=== PATIENT | female | born 1945 | race Caucasian/White ===

== ENCOUNTER 2016-06-24 12:54 | Outpatient (CLI) | payer MEDICARE, OTHER | END 2016-06-24 12:55 | disposition home or self-care (01) | DX: Z12.31 Encounter for screening mammogram for malignant neoplasm of breast (principal) ==

== ENCOUNTER 2017-07-04 14:51 | Outpatient (CLI) | payer MEDICARE, OTHER ==
--- NOTE | 2017-07-05 13:28 | Mammography Report ---
DIGITAL SCREENING MAMMOGRAM: 07/04/2017 CLINICAL INDICATION: A 72-year-old for screening. COMPARISON: 06/2016, 03/2015, 07/2012, 09/2010, 09/2009. TECHNIQUE: Routine CC and MLO projections were obtained of the breasts. FINDINGS: Parenchymal tissue within both breasts is heterogeneously dense, which may lower the sensitivity of mammography; however, there are no dominant masses, suspicious microcalcifications, or secondary signs of malignancy. In comparison to the previous studies, there are no significant changes. IMPRESSION: NO MAMMOGRAPHIC EVIDENCE OF MALIGNANCY. NO SIGNIFICANT INTERVAL CHANGES. RECOMMENDATION: Screening mammography is recommended annually. BIRADS CATEGORY 1 - NEGATIVE. STANDARD QUALIFYING STATEMENTS: 1. This examination was reviewed with the aid of Computed-Aided Detection (CAD). 2. A negative or benign imaging report should not delay biopsy if clinically suspicious findings are present. Consider surgical consultation if warranted. More than 5% of cancers are not identified by imaging. 3. Dense breasts may obscure an underlying neoplasm. TD: 07/05/2017 13:16
== END 2017-07-04 14:52 | disposition home or self-care (01) ==
LOC: DI 14:51
PROVIDERS: ATTEND Physician Assistant
DX: Z12.31 Encounter for screening mammogram for malignant neoplasm of breast (principal)
CPT/HCPCS: 77067

== ENCOUNTER 2017-12-12 14:30 | Outpatient (CLI) | payer MEDICARE, OTHER | END 2017-12-12 14:31 | disposition home or self-care (01) | LOC: LAB.R 14:30 | PROVIDERS: ATTEND Obstetrics & Gynecology | DX: R82.998 Other abnormal findings in urine (principal); N30.91 Cystitis, unspecified with hematuria | CPT/HCPCS: 87086; 87181 ==

== ENCOUNTER 2018-01-29 15:58 | Outpatient (CLI) | payer MEDICARE, OTHER ==
--- NOTE | 2018-01-30 11:13 | XRAY Report ---
Reason: C-spine pain Procedure Date: 01/29/2018 Accession Number: [id number] / [id number] Procedure: XR - Cervical Spine Complete CPT Code: FULL RESULT: EXAM: CERVICAL SPINE RADIOGRAPHY EXAM DATE: 01/29/2018 04:41 PM. CLINICAL HISTORY: C-spine pain. COMPARISONS: 07/27/2006. TECHNIQUE: 5 views. FINDINGS: Alignment: Lower cervical levoscoliosis. Reversed cervical lordosis. Minimal retrolisthesis of C5 with respect to C6. Bones: The cervical vertebral bodies and posterior elements are well-seen from the skull base through C7-T1. No fractures or bone lesions. Disks: Stable advanced C5-C6 disk space narrowing. Progressed disk space narrowing C4-C5 greater than C3-C4. Facets: Scattered degenerative disease. Neural Foramina: Mild narrowing C5-C6 neural foramina greater on the right. The neural foramina otherwise have bony patency bilaterally. Soft Tissues: No prevertebral soft tissue swelling. IMPRESSION: Degenerative change cervical spine significantly progressed since 07/27/2006 most severe C4-C5 and C5-C6. RADIA
--- NOTE | 2018-01-30 11:20 | XRAY Report ---
Reason: THORACOGENIC SCOLIOSIS,THORALUMBAR,RADICULOPATHY,L Procedure Date: 01/29/2018 Accession Number: [id number] / [id number] Procedure: XR - Lumbar Spine 2 View CPT Code: FULL RESULT: EXAM: LUMBOSACRAL SPINE RADIOGRAPHY EXAM DATE: 01/29/2018 04:41 PM. CLINICAL HISTORY: SCOLIOSIS,THORALUMBAR,RADICULOPATHY. Lumbar back pain COMPARISONS: MRI lumbar spine 08/24/2012 TECHNIQUE: 3 views. FINDINGS: Alignment: 42 degrees lumbar levoscoliosis the apex at L1. Minimal retrolisthesis L1 with respect to L2 and anterior listhesis of L3 with respect to L4. Bones: Five [id number] lumbar vertebral bodies are present. No fractures or bone lesions. Disks: Advanced degenerative disk space narrowing L3-L4 and L4-L5 greater than L5-S1 and L2-L3. Facets: Multilevel degenerative changes. Sacroiliac Joints: Minor degenerative change. IMPRESSION: Lumbar spine levoscoliosis and degenerative change, progressed compared with 08/24/2012. No superimposed acute findings.
--- NOTE | 2018-01-30 11:24 | XRAY Report ---
Reason: thoracogenic scoliosis Procedure Date: 01/29/2018 Accession Number: [id number] / [id number] Procedure: XR - Thoracic Spine 2 View CPT Code: FULL RESULT: EXAM: THORACIC SPINE RADIOGRAPHY EXAM DATE: 01/29/2018 04:41 PM. CLINICAL HISTORY: Thoracogenic scoliosis. COMPARISON: 12/18/2007 chest x-ray TECHNIQUE: 2 views. FINDINGS: Alignment: Approximate 38 degree thoracic dextroscoliosis the apex at T7 slightly increased since 2007. Bones: No fractures or bone lesions. Disks: Scattered degenerative changes. Soft Tissues: Bandlike scarring peripheral right midlung IMPRESSION: Degenerative change and dextro scoliosis thoracic spine mildly progressed since 2007. RADIA
== END 2018-01-29 15:59 | disposition home or self-care (01) ==
LOC: DI 15:58
PROVIDERS: ATTEND Family Medicine
DX: M47.9 Spondylosis, unspecified (principal); M50.31 Other cervical disc degeneration, high cervical region; M43.12 Spondylolisthesis, cervical region; M51.36 Other intervertebral disc degeneration, lumbar region; M41.9 Scoliosis, unspecified; M51.37 Other intervertebral disc degeneration, lumbosacral region; M51.34 Other intervertebral disc degeneration, thoracic region
CPT/HCPCS: 72050; 72070; 72100

== ENCOUNTER 2018-04-20 08:00 | Outpatient (CLI) | payer MEDICARE, OTHER | END 2018-04-20 23:59 | disposition home or self-care (01) | LOC: LAB.R 08:00 | PROVIDERS: ATTEND Obstetrics & Gynecology | DX: R30.0 Dysuria (principal) | CPT/HCPCS: 87086 ==

== ENCOUNTER 2018-06-02 15:27 | Outpatient (CLI) | payer MEDICARE, OTHER ==
--- NOTE | 2018-06-04 11:57 | MRI Report ---
Reason: RADICULOPATHY, LUMBOSACRAL REGION Procedure Date: 06/02/2018 Accession Number: [id number] / [id number] Procedure: MRI - Lumbar Spine W/O CPT Code: FULL RESULT: MRI LUMBAR SPINE WITHOUT CONTRAST INDICATION: 73-year-old female with left-sided radiculopathy. Please assess. TECHNIQUE: 1. Sagittal STIR, T1 and T2. 2. Axial T1 and T2. COMPARISON: 08/24/2012 FINDINGS: There is a significant levoconvex scoliosis with apex at the L2-L3 disk level. With the patient lying supine, on the coronal localizer the Kolb angle appears to measure about 33 degrees. There is significant left lateral listhesis of L3 on L4 with minor left lateral listhesis of L4 on L5. In the sagittal plane there is a grade I anterolisthesis of L3 on L4, measuring about 3 mm, unchanged. There is minor retrolisthesis of L1 on L2 that appears to be new. Degenerative changes are again demonstrated in the disks at all levels. There is multilevel degenerative disk space narrowing that appears to be moderate to severe at L3-L4 on the right and at L4-L5 and L5-S1 on the left, essentially unchanged. The L1-L2 and L2-L3 disk space heights are relatively preserved. Type II reactive marrow changes are identified in the vertebral endplates at L3-L4 and L4-L5. A few intraosseous hemangiomata are demonstrated. The marrow signal intensity is otherwise unremarkable. Axial images: T12-L1: Tiny, shallow protrusion, paracentrally on the right with minimal mass effect on the antral aspect of the thecal sac. No spinal stenosis. The neural foramina appear widely patent. L1-L2: Small, right intra/extraforaminal extrusion. Previously demonstrated central extrusion has resolved. There is mild degenerative facet arthrosis without significant bony hypertrophy. No central spinal stenosis or significant subarticular zone narrowing. Mild right-sided foraminal stenosis. L2-L3: Small central/right paracentral protrusion with minimal mass effect on the ventral aspect of thecal sac, unchanged. Degenerative facet arthrosis without significant bony hypertrophy. Moderate redundancy of the ligamenta flava with mass effect on the dorsal aspect of the thecal sac, unchanged. No significant central or subarticular zone spinal stenosis. Small right intra/extraforaminal extrusion. Mild right foraminal stenosis. L3-L4: Anterolisthesis with associated uncovering of the disk. No focal posterior protrusion or extrusion has developed. Again demonstrated is a small extrusion, posterolaterally on the left with intraforaminal extension, unchanged. Degenerative facet arthrosis with at least mild bony hypertrophy, stable. Moderate redundancy of the ligamenta flava, unchanged. The subarticular zones are narrowed, left greater than right. However, no impingement of either traversing L4 nerve root is demonstrated. No significant central zone spinal stenosis. Mild left and mild to moderate right foraminal stenoses, unchanged. Again noted is a perineural cyst in the right neural foramen, similar to prior study. L4-L5: Central/left paracentral extrusion, projecting posteriorly into the spinal canal for about 5.5 mm, essentially unchanged. Broad-based left intra/extraforaminal extrusion, stable. Degenerative facet arthrosis with mild right and mild to moderate left facet hypertrophy, stable. Mild to moderate redundancy of the ligamenta flava. Again demonstrated is severe left subarticular zone stenosis, essentially unchanged. No significant appearing central zone or right subarticular zone stenosis has developed. There is mild left foraminal stenosis, unchanged. L5-S1: Small central/right paracentral extrusion projecting posteriorly into the spinal canal for about 5.5 mm, unchanged. There is contact with the ventral aspect of the dural sac and with the ventral aspect of the dural sleeve for traversing right S1 nerve root. No mass effect on the S1 nerve root is demonstrated. No central zone or left subarticular zone stenosis has developed. There are small intra/extraforaminal protrusions or extrusions bilaterally, larger on the left than the right, unchanged. Degenerative facet arthrosis with mild to moderate right and moderate left facet hypertrophy, similar to prior study. There is mild left foraminal stenosis. Moderate to severe degree of fatty atrophy is identified in the posterior paraspinal musculature in the lower lumbar/upper sacral region, similar to previous examination. IMPRESSION: 1. Levoconvex lumbar scoliosis with multilevel degenerative disk and facet change showing minor interval evolution when compared to previous study 08/24/2012. 2. Again demonstrated is multilevel central, subarticular and foraminal zone narrowing. The most significant stenoses are as follows: a. At L3-L4 there are bilateral subarticular zone stenoses, unchanged. No mel impingement of either traversing L4 nerve root is demonstrated. b. At L4-L5 again demonstrated is severe left subarticular zone (lateral recess) stenosis with almost certain compromise of traversing left L5 nerve root. Recommend clinical correlation for left L5 radiculopathy. c. At L5-S1 again demonstrated is a small central/right paracentral extrusion. It contacts the ventral surface of the dural sleeve for traversing right S1 nerve root, unchanged. No mass effect on the nerve is demonstrated.
== END 2018-06-02 15:28 | disposition home or self-care (01) ==
LOC: DI 15:27
PROVIDERS: ATTEND Specialist
DX: M51.17 Intervertebral disc disorders with radiculopathy, lumbosacral region (principal); M48.07 Spinal stenosis, lumbosacral region; M51.16 Intervertebral disc disorders with radiculopathy, lumbar region; M41.86 Other forms of scoliosis, lumbar region
CPT/HCPCS: 72148

== ENCOUNTER 2018-08-31 15:46 | Outpatient (CLI) | payer MEDICARE, OTHER ==
--- NOTE | 2018-09-03 08:39 | Mammography Report ---
Reason: SCREENING MAMMO Procedure Date: 08/31/2018 Accession Number: [id number] / [id number] Procedure: ANTONIO - Screening Mammo w/Itz CPT Code: FULL RESULT: EXAM: Screening Mammo w/Itz DATE: 08/31/2018 4:20 PM CLINICAL HISTORY: Screening encounter. No reported risk factors. TECHNIQUE: (B) - Bilateral CC and MLO views were obtained. COMPARISON: 07/04/2017 through 07/16/2012. PARENCHYMAL PATTERN: (D) - The breast(s) demonstrate(s) heterogeneously dense fibroglandular parenchyma. FINDINGS: There are no suspicious masses, calcifications, or areas of distortion. IMPRESSION: Negative examination. BI-RADS category 1. RECOMMENDATION: (ANNUAL) - Recommend routine annual screening mammography. BI-RADS CATEGORY: (1) - Negative. STANDARD QUALIFYING STATEMENTS: 1. This examination was not reviewed with the aid of Computer-Aided Detection (CAD). 2. A negative or benign imaging report should not preclude biopsy if clinically suspicious findings are present. 3. Dense breasts may obscure an underlying neoplasm. 4. This examination was reviewed with the aid of 3D breast imaging (tomosynthesis).
== END 2018-08-31 15:47 | disposition home or self-care (01) ==
LOC: DI 15:46
PROVIDERS: ATTEND Internal Medicine
DX: Z12.31 Encounter for screening mammogram for malignant neoplasm of breast (principal)
CPT/HCPCS: 77063; 77067

== ENCOUNTER 2018-11-10 17:32 | Inpatient (IN) | payer MEDICARE, OTHER ==
[2018-11-10] MEDS ORDERED: SODIUM CHLORIDE 0.9% 1,000 ML IV ONE ×3 (17:50→19:07)
[2018-11-10 18:37] LABS: BASOPHILS # (AUTO) 0.1 10^3/uL (0.0-0.1); BASOPHILS % (AUTO) 0.5 %; EOSINOPHILS # (AUTO) 0.1 10^3/uL (0.0-0.7); EOSINOPHILS % (AUTO) 0.5 %; HGB - HEMOGLOBIN 9.4 g/dL (12.0-16.0); LYMPHOCYTES # (AUTO) 1.6 10^3/uL (1.5-3.5); LYMPHOCYTES % (AUTO) 8.6 %; MEAN CORPUSCULAR HEMOGLOBIN 29.7 pg (27.0-31.0); MEAN CORPUSCULAR HGB CONC 30.9 g/dL (32.0-36.0); MEAN CORPUSCULAR VOLUME 96.2 fL (81.0-99.0); MONOCYTES # (AUTO) 1.4 10^3/uL (0.0-1.0); MONOCYTES % (AUTO) 7.7 %; NEUTROPHILS # (AUTO) 14.8 10^3/uL (1.5-6.6); NEUTROPHILS % (AUTO) 81.8 %; PLT - PLATELET COUNT 693 10^3/uL (130-450); RED BLOOD COUNT 3.16 10^6/uL (4.20-5.40); RED CELL DISTRIBUTION WIDTH 13.6 % (12.0-15.0); WHITE BLOOD COUNT 18.1 x10^3/uL (4.8-10.8)
[2018-11-10 18:50] LABS: ALBUMIN 2.6 g/dL (3.2-5.5); ALBUMIN/GLOBULIN RATIO 0.6 (1.0-2.2); BILIRUBIN,TOTAL 0.6 mg/dL (0.2-1.0); CALCIUM 8.8 mg/dL (8.5-10.3); CREATININE 1.1 mg/dL (0.4-1.0); TOTAL PROTEIN 6.8 g/dL (6.7-8.2)
[2018-11-10] MEDS ORDERED: MORPHINE 2 MG/ML CARPUJECT IVP STA (19:07)
[2018-11-10] MEDS ORDERED: DEXAMETHASONE 10 MG/ML VIAL IVP STA (19:11)
[2018-11-10] MEDS ORDERED: KETOROLAC 30 MG/ML VIAL IVP STA (19:12)
--- NOTE | 2018-11-10 19:13 | ED Physician Documentation ---
History of Present Illness - Stated complaint Stated Complaint: BODY ACHES/DIARRHEA - Chief complaint Chief Complaint: General - History obtained from History obtained from: Patient, Family - History of Present Illness Timing: Other (1 month) Pain level max: 6 Pain level now: 5 - Additonal information Additional information: 73-year-old female presents to the emergency department with sores on her mouth and a sore throat for the past month. Saw her doctor who started her on viscous lidocaine. She states she has had intermittent fevers. Cough productive of green and yellow sputum. She also has developed diarrhea. Does have a history of colitis in the past. Has occasional crampy abdominal pain. Worse with swallowing. Nothing makes it better. Taking Tylenol at home for her hips. Review of Systems Ten Systems: 10 systems reviewed and negative Constitutional: reports: Fever. denies: Chills Ears: denies: Ear pain Nose: reports: Rhinorrhea / runny nose, Congestion Throat: reports: Sore throat Cardiac: denies: Chest pain / pressure, Palpitations Respiratory: reports: Cough. 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 - Present Medications Home Medications: Ambulatory Orders Medication Instructions Recorded Confirmed Aspirin Chewable [[place] 81 mg PO DAILY 10/16/12 11/06/14 Aspirin] Bisacodyl [Dulcolax] 10 mg PO DAILY 10/16/12 11/06/14 Clonazepam 0.5 mg PO TID 10/16/12 11/06/14 Estrogens,Esterified [Menest] 0.3 mg PO DAILY 10/16/12 11/06/14 HYDROcod/ACETAM 5/325 [Vicodin 1 - 2 ea PO Q6H PRN #15 tablet 10/16/12 11/06/14 5/325] Labetalol HCl 100 mg PO DAILY 10/16/12 11/06/14 Levothyroxine [Synthroid] 37.5 mcg PO QDAC 10/16/12 11/06/14 Nifedipine [Nifedical Xl] 30 mg PO DAILY 10/16/12 11/06/14 Rabeprazole Sodium [Aciphex] 20 mg PO DAILY 10/16/12 11/06/14 hydroCHLOROthiazide [Hydrodiuril] 25 mg PO DAILY 10/16/12 11/06/14 Ciprofloxacin HCl [Cipro] 500 mg PO BID #10 tablet 11/06/14 Dicyclomine HCl [Bentyl] 20 mg PO QID PRN #20 tablet 11/06/14 Estradiol [Vagifem] 1 unit [id number] DAILY 11/06/14 11/06/14 Ondansetron HCl [Zofran] 4 mg PO Q6H PRN #10 tablet 11/06/14 clonazePAM [Clonazepam] 0.5 mg PO TID 11/06/14 11/06/14 traMADol [Ultram] 100 mg PO QID 11/06/14 11/06/14 - Allergies Allergies/Adverse Reactions: Allergies Allergy/AdvReac Type Severity Reaction Status Date / Time iodine Allergy lightheaded Verified 11/10/18 17:46 Sulfa (Sulfonamide Allergy Nausea Verified 11/10/18 17:46 Antibiotics) trifluoperazine HCl * Allergy unknown Verified 11/10/18 17:46 [From Stelazine] - Social History Does the pt smoke?: No Smoking Status: Never smoker Does the pt drink ETOH?: No Does the pt have substance abuse?: No PD ED PE NORMAL - Vitals Vital signs reviewed: Yes - General General: Alert and oriented X 3, No acute distress, Other (Thin frail female) - HEENT HEENT: PERRL, Ears normal, Moist mucous membranes, Other (Posterior pharyngeal erythema with exudates. Uvula midline. Normal phonation. No trismus.) - Neck Neck: Supple, no meningeal sign, Other (Shotty anterior lymphadenopathy) - Cardiac Cardiac: RRR, Strong equal pulses - Respiratory Respiratory: No respiratory distress, Clear bilaterally - Abdomen Abdomen: Soft, Non distended, Other (Mild diffuse tenderness to palpation without peritoneal signs) - Back Back: No CVA TTP, No spinal TTP - Derm Derm: Warm and dry - Extremities Extremities: No edema, No calf tenderness / cord - Neuro Neuro: Alert and oriented X 3 - Psych Psych: Normal mood, Normal affect Results - Vitals Vitals: Vital Signs - 24 hr 11/10/18 11/10/18 11/10/18 17:41 18:30 19:19 Temperature 37.2 C Heart Rate 114 H 108 H 116 H Respiratory 18 18 20 Rate Blood Pressure 106/71 135/88 H 133/109 H O2 Saturation 93 100 100 11/10/18 21:41 Temperature 37.4 C Heart Rate 114 H Respiratory 18 Rate Blood Pressure 137/71 H O2 Saturation 97 Oxygen O2 Source Room air - Labs Labs: Laboratory Tests 11/10/18 11/10/18 11/10/18 18:20 18:30 19:13 WBC 18.1 H RBC 3.16 L Hgb 9.4 L Hct 30.4 L MCV 96.2 MCH 29.7 MCHC 30.9 L RDW 13.6 Plt Count 693 H MPV 9.0 Neut # (Auto) 14.8 H Lymph # (Auto) 1.6 Benton # (Auto) 1.4 H Eos # (Auto) 0.1 Baso # (Auto) 0.1 Absolute Nucleated RBC 0.00 Nucleated RBC % 0.0 Sodium 140 Potassium 3.7 Chloride 100 L Carbon Dioxide 23 Anion Gap 17.0 H BUN 17 Creatinine 1.1 H Estimated GFR (MDRD) 48 L Glucose 116 H Lactic Acid Calcium 8.8 Total Bilirubin 0.6 AST 32 ALT 18 Alkaline Phosphatase 88 Total Protein 6.8 Albumin 2.6 L Globulin 4.2 Albumin/Globulin Ratio 0.6 L Lipase 29 Urine Color Urine Clarity Urine pH Ur Specific Garfield Urine Protein Urine Glucose (UA) Urine Ketones Urine Occult Blood Urine Nitrite Urine Bilirubin Urine Urobilinogen Ur Leukocyte Esterase Urine RBC Urine WBC Ur Squamous Epith Cells Urine Bacteria Ur Microscopic Review Urine Culture Comments Group A Strep Rapid Negative 11/10/18 11/10/18 20:20 22:20 WBC RBC Hgb Hct MCV MCH MCHC RDW Plt Count MPV Neut # (Auto) Lymph # (Auto) Benton # (Auto) Eos # (Auto) Baso # (Auto) Absolute Nucleated RBC Nucleated RBC % Sodium Potassium Chloride Carbon Dioxide Anion Gap BUN Creatinine Estimated GFR (MDRD) Glucose Lactic Acid 0.9 Calcium Total Bilirubin AST ALT Alkaline Phosphatase Total Protein Albumin Globulin Albumin/Globulin Ratio Lipase Urine Color YELLOW Urine Clarity CLEAR Urine pH 6.0 Ur Specific Garfield 1.015 Urine Protein NEGATIVE Urine Glucose (UA) NEGATIVE Urine Ketones 15 H Urine Occult Blood NEGATIVE Urine Nitrite POSITIVE H Urine Bilirubin NEGATIVE Urine Urobilinogen 0.2 (NORMAL) Ur Leukocyte Esterase NEGATIVE Urine RBC None Seen Urine WBC 11-25 H Ur Squamous Epith Cells FEW Squamous Urine Bacteria Many H Ur Microscopic Review INDICATED Urine Culture Comments INDICATED Group A Strep Rapid - Rads (name of study) cxr Radiology: Prelim report reviewed, EMP read contemporaneously, See rad report (Right upper lobe infiltrate with consolidation. There may be extensions of the superior segment of the right lower lobe ) CT chest Radiology: Prelim report reviewed, EMP read contemporaneously, See rad report (Multilobar consolidation involving the right lung. Irregular locules of gas within this consolidation, which likely represents developing necrosis. No discrete rim-enhancing fluid collection visualized to suggest abscess. Recommend follow-up chest radiographs following treatment to ensure resolution. Mildly enlarged pretracheal mediastinal lymph node, which may be reactive. ) CT abd/pelvis Radiology: Prelim report reviewed, EMP read contemporaneously, See rad report (. Diverticulosis without diverticulitis or other acute inflammatory process. 2. Evidence of pelvic floor dysfunction. ) PD MEDICAL DECISION MAKING - ED course Complexity details: reviewed results, re-evaluated patient, considered differential, d/w patient, d/w family ED course: 73-year-old female presents to the emergency department with illness over the past month. She appears to have a right upper lobe pneumonia with possible areas of necrosis. She has significant dehydration and a 10 pound weight loss. Given IV fluids. Has a significant leukocytosis of 18,000. She also appears to have a urinary tract infection. She is ill-appearing. Given IV Levaquin. Blood cultures drawn. Will admit for further care. PSI score of III. Discussed the case with Dr. Adams, hospitalist who accepts. This document was made in part using voice recognition software. While efforts are made to proofread this document, sound alike and grammatical errors may occur. Departure - Departure Disposition: 66 [facility] DC/Xfer Clinical Impression: Tachycardia, Dehydration Pneumonia Qualifiers: Pneumonia type: due to unspecified organism Laterality: right Lung location: upper lobe of lung Qualified Code(s): J18.1 - Lobar pneumonia, unspecified organism Leukocytosis Qualifiers: Leukocytosis type: bandemia Qualified Code(s): D72.825 - Bandemia UTI (urinary tract infection) Qualifiers: Urinary tract infection type: acute cystitis Hematuria presence: without hematuria Qualified Code(s): N30.00 - Acute cystitis without hematuria Pharyngitis Qualifiers: Pharyngitis/tonsillitis etiology: unspecified etiology Qualified Code(s): J02.9 - Acute pharyngitis, unspecified Condition: Stable
[2018-11-10] MEDS ORDERED: IOVERSOL 320 100 ML VIAL IVP ONE ×2 (19:59→21:24)
--- NOTE | 2018-11-10 20:00 | XRAY Report ---
Reason: fever, cough Procedure Date: 11/10/2018 Accession Number: [id number] / [id number] Procedure: XR - Chest 2 View X-Ray CPT Code: 09370 FULL RESULT: EXAM: CHEST RADIOGRAPHY EXAM DATE: 11/10/2018 07:42 PM. CLINICAL HISTORY: Fever, cough. COMPARISON: THORACIC SPINE 2 VIEW 01/29/2018 4:17 PM. TECHNIQUE: 2 views. FINDINGS: Lungs/Pleura: Large right upper lobe infiltrate with consolidation. This may extend to the superior segment of the right lower lobe Chronic right greater than left thickening. Mediastinum: Heart and mediastinal contours are unremarkable. Other: S-shaped scoliosis IMPRESSION: Right upper lobe infiltrate with consolidation. There may be extensions of the superior segment of the right lower lobe RADIA
[2018-11-10 20:34] LABS: BILIRUBIN,URINE NEGATIVE (NEGATIVE); GLUCOSE, URINE (UA) NEGATIVE (NEGATIVE); KETONES,URINE (UA) 15 mg/dL (NEGATIVE); LEUKOCYTE ESTERASE, URINE NEGATIVE (NEGATIVE); NITRITE,URINE POSITIVE (NEGATIVE); OCCULT BLOOD,URINE NEGATIVE (NEGATIVE); PROTEIN,URINE NEGATIVE (NEGATIVE); UROBILINOGEN,URINE 0.2 (NORMAL) E.U./dL (NORMAL)
[2018-11-10] MEDS ORDERED: diphenhydrAMINE INJ 50 MG/ML VIAL IVP STA (20:35)
[2018-11-10 20:49] LABS: CLARITY,URINE CLEAR (CLEAR)
[2018-11-10 21:15] LABS: BACTERIA,URINE Many /HPF (None Seen); RBC,URINE None Seen /HPF (0-5); SQUAMOUS EPITHELIAL CELL,UR FEW Squamous (<= Few)
--- NOTE | 2018-11-10 21:35 | CT Report ---
Reason: abd pain, diarrhea Procedure Date: 11/10/2018 Accession Number: [id number] / [id number] Procedure: CT - Abdomen/Pelvis W CPT Code: FULL RESULT: EXAM: CT ABDOMEN AND PELVIS EXAM DATE: 11/10/2018 08:56 PM. CLINICAL HISTORY: Abdominal pain, diarrhea. COMPARISONS: CHEST W/ 11/10/2018 8:56 PM. TECHNIQUE: Routine helical CT imaging was performed through the abdomen and pelvis. IV contrast: 70 mL OPTIRAY 320. Enteric contrast: No. Reconstructions: Coronal and sagittal. In accordance with CT protocol optimization, one or more of the following dose reduction techniques were utilized for this exam: automated exposure control, adjustment of mA and/or KV based on patient size, or use of iterative reconstructive technique. FINDINGS: Lung Bases: Branching nodular opacities partially visualized at the right lung base. Please refer to chest CT report. Liver: Normal. No masses. Gallbladder/Bile Ducts: Unremarkable. Spleen: Normal. Pancreas: Normal. Adrenal Glands: Normal. Kidneys: Normal. No masses or hydronephrosis. Peritoneal Cavity/Bowel: There is diverticulosis of the distal colon without diverticulitis. No small bowel obstruction. No free air or fluid collections. No evidence of appendicitis. Pelvic Organs: The uterus is absent. No pelvic mass. Low lying pelvic bowel loops noting the vesicoureteral junction lies below the pubococcygeal line. Vasculature: No aneurysms or other significant abnormality. Bones: Left convexity scoliosis. No acute bony abnormality. Other: None. IMPRESSION: 1. Diverticulosis without diverticulitis or other acute inflammatory process. 2. Evidence of pelvic floor dysfunction. RADIA
[2018-11-10] MEDS ORDERED: levoFLOXacin 750 MG/150 ML 750 MG/150 ML BAG IV ONE (21:40)
--- NOTE | 2018-11-10 21:45 | CT Report ---
Reason: fever, cough Procedure Date: 11/10/2018 Accession Number: [id number] / [id number] Procedure: CT - CHEST W CPT Code: FULL RESULT: EXAM: CT CHEST EXAM DATE: 11/10/2018 08:56 PM. CLINICAL HISTORY: Fever, cough. COMPARISONS: CHEST 2 VIEW 11/10/2018 7:34 PM CHEST W/O 11/26/2013 3:14 PM. TECHNIQUE: Routine helical CT imaging was performed through the chest. IV contrast: None. Reconstructions: Coronal and sagittal. In accordance with CT protocol optimization, one or more of the following dose reduction techniques were utilized for this exam: automated exposure control, adjustment of mA and/or KV based on patient size, or use of iterative reconstructive technique. FINDINGS: Lungs/Pleura: There is a right lung consolidation involving the posterior/inferior segments of the right upper lobe, and posterior/superior segments of the right lower lobe, and segments of the right middle lobe. There are scattered foci of irregular gas within this consolidation, which could represent necrosis. No pleural effusions or pneumothoraces. Unchanged 4 mm subpleural nodule in the lateral left lower lobe when compared to the prior exam from November 2013 (image 196 of series 3). Mediastinum: Heart size is normal. No pericardial effusion. There is an enlarged pretracheal mediastinal lymph none measuring 8 mm in short axis. The thoracic aorta is normal in course and caliber. Scattered calcified plaques in the thoracic aorta. No significant coronary atherosclerosis. The pulmonary vasculature is unremarkable. Bones: The bones are osteopenic. Dextroconvex scoliosis of the upper thoracic spine. Visualized Abdomen: Unremarkable. Other: None. IMPRESSION: Multilobar consolidation involving the right lung. Irregular locules of gas within this consolidation, which likely represents developing necrosis. No discrete rim-enhancing fluid collection visualized to suggest abscess. Recommend follow-up chest radiographs following treatment to ensure resolution. Mildly enlarged pretracheal mediastinal lymph node, which may be reactive. RADIA
[2018-11-10] MEDS ORDERED: metroNIDAZOLE 500 MG/100 ML 500 MG/100 ML BAG IV ONE (22:37)
[2018-11-10] MEDS ORDERED: ONDANSETRON ODT 4 MG TABLET TL PRN (22:38)
--- NOTE | 2018-11-10 23:11 | HISTORY & PHYSICAL EXAMINATION ---
Chief Complaint - Chief Complaint Chief Complaint: fever, weight loss, productive cough History of Present Illness - Admitted From Admitted From:: [facility] - History Obtained From Records Reviewed: yes History obtained from: patient - History of Present Illness HPI Comment/Other: Patient seen and examined today around 22:45pm Patient is a 73 y/o female who presented to ED with complain of feeling sick over the past 1 month and having about a 10lb weight loss. She has also been very fatigue and not able to keep up with her regular activities. She also complained of pain in her mouth for which she went to Urgent Care and was prescribed a lidocane/nystatin/dexamethasone combo to swish and spit. However she has been experiencing diarrhea since using it. She describes the color as pinkish-orange. She also reported a subjective fever of 101.2F at home and a greenish productive cough. She denies any episodes of aspiration but is constantly clearing her throat during the interview. She reports pain with ingesting anything. She denies chest pain or dyspnea but then adds that she feels winded. She has chronic mild abd pain as a result of previous abdominal surgery. In the ED she was found to have a WBC of [address] of the chest showed multilobar consolidation in the right lung with possible developing necrosis. The patient appears frail. As a result she was presented for admission. 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 Social History Notes: She denies alcohol, tobacco or illicit drug use - POLST Patient has POLST: No POLST Status: Full Code Meds/Allgy - Home Medications Home Medications: Ambulatory Orders Medication Instructions Recorded Confirmed Aspirin Chewable [St Cody 81 mg PO DAILY 10/16/12 11/06/14 Aspirin] Bisacodyl [Dulcolax] 10 mg PO DAILY 10/16/12 11/06/14 Clonazepam 0.5 mg PO TID 10/16/12 11/06/14 Estrogens,Esterified [Menest] 0.3 mg PO DAILY 10/16/12 11/06/14 HYDROcod/ACETAM 5/325 [Vicodin 1 - 2 ea PO Q6H PRN #15 tablet 10/16/12 11/06/14 5/325] Labetalol HCl 100 mg PO DAILY 10/16/12 11/06/14 Levothyroxine [Synthroid] 37.5 mcg PO QDAC 10/16/12 11/06/14 Nifedipine [Nifedical Xl] 30 mg PO DAILY 10/16/12 11/06/14 Rabeprazole Sodium [Aciphex] 20 mg PO DAILY 10/16/12 11/06/14 hydroCHLOROthiazide [Hydrodiuril] 25 mg PO DAILY 10/16/12 11/06/14 Ciprofloxacin HCl [Cipro] 500 mg PO BID #10 tablet 11/06/14 Dicyclomine HCl [Bentyl] 20 mg PO QID PRN #20 tablet 11/06/14 Estradiol [Vagifem] 1 unit [id number] DAILY 11/06/14 11/06/14 Ondansetron HCl [Zofran] 4 mg PO Q6H PRN #10 tablet 11/06/14 clonazePAM [Clonazepam] 0.5 mg PO TID 11/06/14 11/06/14 traMADol [Ultram] 100 mg PO QID 11/06/14 11/06/14 - Allergies Allergies/Adverse Reactions: Allergies Allergy/AdvReac Type Severity Reaction Status Date / Time iodine Allergy lightheaded Verified 11/10/18 17:46 Sulfa (Sulfonamide Allergy Nausea Verified 11/10/18 17:46 Antibiotics) trifluoperazine HCl * Allergy unknown Verified 11/10/18 17:46 [From Stelazine] Review of Systems - Constitutional Constitutional: reports: Fatigue, Fever, Weight loss - Eyes Eyes: denies: Vision loss, Dipolpia - Ears, Nose & Throat Ears, Nose & Throat: reports: Sore throat, Mouth lesions. denies: Vertigo, Bleeding gums - Cardiovascular Cariovascular: reports: Palpitations. denies: Chest pain, Edema, Lightheadedness, Syncope - Respiratory Respiratory: reports: Cough, Sputum production. denies: Hemoptysis, SOB at rest, SOB with exertion - Gastrointestinal Gastrointestinal: reports: Abdominal pain (chronic), Diarrhea, Reflux/heartburn. denies: Abdominal distention, Constipation, Nausea, Vomiting - Genitourinary Genitourinary: denies: Dysuria, Frequency, Urgency, Hematuria - Musculoskeletal Musculoskeletal: reports: Back pain - Integumentary Integumentary: denies: Rash, Pruritis, Lesions - Neurological Neurological: reports: General weakness. denies: Focal weakness, Headache - Psychiatric Psychiatric: denies: Depression, Anxiety - Endocrine Endocrine: denies: Polyuria, Polydypsia - Hematologic/Lymphatic Hematologic/Lymphatic: reports: Anemia. denies: Bruising, Petechiae Prior Level of Functionality: Patient is independent of activities of daily living and used to work regularly until about 1 month ago Exam - Vital Signs Vital Signs: Vital Signs x48h Temp Pulse Resp BP Pulse Ox 11/10/18 21:41 37.4 C 114 H 18 137/71 H 97 11/10/18 19:19 116 H 20 133/109 H 100 11/10/18 18:30 108 H 18 135/88 H 100 11/10/18 17:41 37.2 C 114 H 18 106/71 93 - Physical Exam General Appearance: positive: Alert, Mild distress, Anxious, Other (Frail/Cachexic). negative: Lethargic Eyes Bilateral: positive: Normal inspection, PERRL, EOMI ENT: positive: ENT inspection nml, Dry mucous membranes. negative: Pharyngeal erythema, Oral lesions Neck: positive: Nml inspection, No JVD, Trachea midline Respiratory: positive: Chest non-tender, No respiratory distress, Breath sounds nml. negative: Wheezes, Rales, Rhonchi Cardiovascular: positive: Tachycardia. negative: No murmur Abdomen: positive: No organomegaly, Nml bowel sounds, Tenderness. negative: No distention, Mass Back: positive: Nml inspection Skin: positive: Color nml, No rash, Warm, Dry Extremities: positive: Non-tender, Full ROM, Nml appearance. negative: No pedal edema Neurologic/Psychiatric: positive: Oriented x3, CN's nml (2-12), Motor nml, Sensation nml, Mood/affect nml Sepsis Event Note (H) - Evaluation Current Stage of Sepsis: Sepsis Possible source of Sepsis: positive: Pulmonary, Genitourinary - Sepsis Criteria Sepsis Criteria: Recorded Heart Rate greater than 90 bpm, WBC count greater than 12,000 or less than 4000 Conclusion/Plan - Problem List (1) Sepsis Conclusion/Plan: 2/2 Right lobar Pneumonia with necrosis (?Aspiration) and UTI Patient started on levaquin and flagyl Will continue. Blood and urine culture pending Patient given 2L normal saline in the ED. Normal saline running at 100ml/hr currently. Tylenol prn for fever. (2) Thrombocytosis Conclusion/Plan: Likely reactive. Will recheck with am labs (3) Tachycardia Conclusion/Plan: ? Multifactorial 2/2 Dehydration, Infection and/or medication Patient has not yet taken her evening dose of labetalol. Will administer Patient on synthroid. Will check TSH. Patient has dry oral mucosa. Given 2L normal saline in the ED. Continuing at 100ml/hr Treating infection with IV antibiotics. Expect improvement. (4) Weight loss Conclusion/Plan: ?2/2 Dysphagia vs Infection vs Thyroid Speech eval ordered. If significant will proceed with barium swallow eval Treating infection. Checking TSH CT chest/abd/pelvis was negative for any malignancy (5) Dysphagia Conclusion/Plan: Speech eval ordered (6) Hypertension Conclusion/Plan: Patient on nifedipine and labetalol. Will resume when verified (7) Hypothyroid Conclusion/Plan: Will resume synthroid depending on TSH result (8) Anxiety Conclusion/Plan: On lorazepam (9) Chronic back pain Conclusion/Plan: Tylenol prn (10) GERD (gastroesophageal reflux disease) Conclusion/Plan: Protonix ordered - Lab Results Fish Bones: 11/10/18 18:30 11/10/18 18:20 Core Measures - Anticipated LOS I expect patient to be DC'd or transferred within 96 hours.: Yes - DVT/VTE - Prophylaxis VTE/DVT Device ordered at admit?: Yes
[2018-11-11] MEDS: SODIUM CHLORIDE 0.9% 1,000 ML IV SCH ×3 (00:23→20:11)
[2018-11-11] MEDS: SODIUM CHLORIDE FLUSH 0.9% 10 ML SYRINGE IVP SCH ×3 (01:04→16:06)
[2018-11-11] MEDS: LABETALOL 100 MG TABLET PO SCH ×3 (01:20→20:12)
[2018-11-11] MEDS: LORazepam 0.5 MG TABLET PO PRN (01:21)
[2018-11-11] MEDS: ACETAMINOPHEN 325 MG TABLET PO PRN ×2 (04:41→08:45)
[2018-11-11 04:54] LABS: BASOPHILS % (AUTO) 0.2 %; HGB - HEMOGLOBIN 8.3 g/dL (12.0-16.0); LYMPHOCYTES # (AUTO) 0.8 10^3/uL (1.5-3.5); LYMPHOCYTES % (AUTO) 6.8 %; MEAN CORPUSCULAR HEMOGLOBIN 30.5 pg (27.0-31.0); MEAN CORPUSCULAR HGB CONC 31.8 g/dL (32.0-36.0); MEAN PLATELET VOLUME 8.6 fL (7.9-10.8); MONOCYTES # (AUTO) 0.2 10^3/uL (0.0-1.0); MONOCYTES % (AUTO) 1.6 %; NEUTROPHILS # (AUTO) 11.1 10^3/uL (1.5-6.6); PLT - PLATELET COUNT 619 10^3/uL (130-450); RED BLOOD COUNT 2.72 10^6/uL (4.20-5.40); RED CELL DISTRIBUTION WIDTH 13.7 % (12.0-15.0); WHITE BLOOD COUNT 12.3 x10^3/uL (4.8-10.8)
[2018-11-11 05:06] LABS: CALCIUM 7.6 mg/dL (8.5-10.3); CREATININE 0.9 mg/dL (0.4-1.0)
[2018-11-11] MEDS ORDERED: PANTOPRAZOLE 40 MG TABLET PO SCH (07:00)
[2018-11-11] MEDS: metroNIDAZOLE 500 MG/100 ML 500 MG/100 ML BAG IV SCH ×2 (08:46→16:01)
[2018-11-11] MEDS: POLYETHYLENE GLYCOL 3350 17 GM PACKET PO SCH (08:52)
--- NOTE | 2018-11-11 08:55 | PROVIDER PROGRESS NOTE ---
Assessment/Plan - Problem List (1) Sepsis Assessment/Plan: Improving WBC and tachycardia using iv fluids and iv antibiotics for treating UTI and pneumonia (2) Necrotizing pneumonia Assessment/Plan: The chest imaging showed air, suggesting an abscess or an anaerobic infection producing gas. Await blood and sputum cx. Continue empiric treatment with Levaquin and Flagyl. F/U CXR qod to assess for improvement, otherwise will consider a bronchoscopy (therefore a transfer would be needed). (3) Odynophagia Assessment/Plan: She has had painful swallowing for at least a month. She was getting a GI cocktail to swish but not swallow. The admitting Factory Clerk put her on a liquid diet, since her pain with swallowing is so bad. Strep throat screen was neg. Will change po Tylenol to iv Ofirmev for pain or fever Will change po daily Protonix to Protonix 40 mg iv bid Will request general surgery consult (with Dr Lamont Us) for his recommendations and possible EGD in several days>>> he thought her clinical picture is that of Sjogren's syndrome. Will treat with Diflucan, not nystatin swish that she was on. Will start Protonix as well. Dietary consult also orderd. (4) Dehydration Assessment/Plan: Iv fluids continue. Watch BMP, I's and O's (5) Diarrhea Assessment/Plan: Will check C. diff (6) UTI (urinary tract infection) Qualifiers: Urinary tract infection type: acute cystitis Hematuria presence: without hematuria Qualified Code(s): N30.00 - Acute cystitis without hematuria Assessment/Plan: WBC has improved from 18 to 12 since admission Blood and urine cultures are pending She is on empiric iv Levaquin (7) Malnutrition of moderate degree Assessment/Plan: She reports a 10 lb weight loss in 1 month. She does have lymph nodes seen in the mediastinum, which could b e reactive (to the pulmonary infection) or primary. Will advance her diet in 1-2 days, if odynophagia improves. Clear liquids will be advanced to full liquids as she eats yogurt and takes Ensure. College Archivist consult ordered. (8) Hypothyroid Assessment/Plan: Continue her home thyroid dose. TSH is good, indicating an adequate dose. (9) Hypertension Assessment/Plan: Her Labetolol was ordered and Nifedipine could continue, but will stop HCTZ, while she needs hydration. (10) Anemia Assessment/Plan: Likely a nutritional anemia, and will also have hemodilution. Will check B12, Folate levels, Iron stores and stool guiac. (11) Thrombocytosis Assessment/Plan: Suspect that this is reactive to a longstanding and untreated infection. - Current Meds Current Meds: Current Medications Generic Name Dose Route Start Last Admin Trade Name Freq PRN Reason Stop Dose Admin Acetaminophen 650 mg 11/10/18 22:38 11/11/18 08:45 Tylenol PO 650 mg Q4HR PRN Administration Pain 1 to 4 Sodium Chloride 1,000 mls @ 100 mls/hr 11/10/18 23:00 11/11/18 08:45 Normal Saline 0.9% IV 100 mls/hr .Q10H MONICA Administration Metronidazole 500 mg in 100 mls @ 100 mls/hr 11/11/18 08:00 11/11/18 08:46 Flagyl 500 Mg/100 Ml IV 100 mls/hr Q8H MONICA Administration Labetalol HCl 100 mg 11/11/18 01:00 11/11/18 01:21 Trandate PO 100 mg BID MONICA Administration Lorazepam 0.5 mg 11/11/18 00:58 11/11/18 01:21 Ativan PO 0.5 mg Q8H PRN Administration Anxiety Pantoprazole Sodium 40 mg 11/11/18 07:00 11/11/18 08:52 Protonix PO Not Given QDAC MONICA Polyethylene Glycol 17 gm 11/11/18 09:00 11/11/18 08:52 Miralax PO Not Given DAILY MONICA Sodium Chloride 10 ml 11/11/18 01:00 11/11/18 08:42 Normal Saline Flush 0.9% IVP Not Given 0100,0900,1700 MONICA - Lab Result Fish Bone Diagrams: 11/11/18 04:38 11/11/18 04:38 - Additional Planning My Orders: My Active Orders 11/11/18 Consult [General Surgery Consult] [CONS] Routine Subjective - Subjective Patient Reports: Fatigue, Fever, Other (Cough is dry now, was productive of green sputum for 1 week) Objective Vital Signs: Vital Signs - 24 hr 11/10/18 11/10/18 11/10/18 17:41 18:30 19:19 Temperature 37.2 C Heart Rate 114 H 108 H 116 H Heart Rate [ Brachial] Respiratory 18 18 20 Rate Blood Pressure 106/71 135/88 H 133/109 H Blood Pressure [Right Brachial artery] O2 Saturation 93 100 100 11/10/18 11/10/18 11/10/18 21:41 23:32 23:45 Temperature 37.4 C 36.5 C 36.5 C Heart Rate 114 H 125 H Heart Rate [ 125 H Brachial] Respiratory 18 18 18 Rate Blood Pressure 137/71 H Blood Pressure 123/65 [Right Brachial artery] O2 Saturation 97 100 11/11/18 11/11/18 04:30 07:48 Temperature 36.5 C 36.6 C Heart Rate Heart Rate [ 87 105 H Brachial] Respiratory 16 14 Rate Blood Pressure Blood Pressure 125/67 116/58 L [Right Brachial artery] O2 Saturation 99 99 Oxygen O2 Source Room air I&O (Last 24 Hrs): Intake and Output Totals x24h 11/09/18 11/10/18 11/11/18 23:59 23:59 23:59 Intake Total 2006. 1806.167 Output Total 400 Balance 2006. 1406.167 General: Alert, Oriented x3 HEENT: Other (Dry mucosa. Temporal wasting. Sunken orbits.) Neck: Supple, No JVD Neuro: Non Focal Cardiovascular: Regular rate Respiratory: No respiratory distress Abdomen: Soft Extremities: No edema, Other (Thenar eminence thin) - Results Results: Laboratory Results WBC 12.3 x10^3/uL (4.8-10.8) H 11/11/18 04:38 RBC 2.72 10^6/uL (4.20-5.40) L 11/11/18 04:38 Hgb 8.3 g/dL (12.0-16.0) L 11/11/18 04:38 Hct 26.1 % (37.0-47.0) L 11/11/18 04:38 MCV 96.0 fL (81.0-99.0) 11/11/18 04:38 MCH 30.5 pg (27.0-31.0) 11/11/18 04:38 MCHC 31.8 g/dL (32.0-36.0) L 11/11/18 04:38 RDW 13.7 % (12.0-15.0) 11/11/18 04:38 Plt Count 619 10^3/uL (130-450) H 11/11/18 04:38 MPV 8.6 fL (7.9-10.8) 11/11/18 04:38 Neut # (Auto) 11.1 10^3/uL (1.5-6.6) H 11/11/18 04:38 Lymph # (Auto) 0.8 10^3/uL (1.5-3.5) L 11/11/18 04:38 [place] # (Auto) 0.2 10^3/uL (0.0-1.0) 11/11/18 04:38 Eos # (Auto) 0.0 10^3/uL (0.0-0.7) 11/11/18 04:38 Baso # (Auto) 0.0 10^3/uL (0.0-0.1) 11/11/18 04:38 Absolute Nucleated RBC 0.00 x10^3/uL 11/11/18 04:38 Nucleated RBC % 0.0 /100WBC 11/11/18 04:38 Sodium 138 mmol/L (135-145) 11/11/18 04:38 Potassium 3.8 mmol/L (3.5-5.0) 11/11/18 04:38 Chloride 106 mmol/L (101-111) 11/11/18 04:38 Carbon Dioxide 20 mmol/L (21-32) L 11/11/18 04:38 Anion Gap 12.0 (6-13) 11/11/18 04:38 BUN 16 mg/dL (6-20) 11/11/18 04:38 Creatinine 0.9 mg/dL (0.4-1.0) 11/11/18 04:38 Estimated GFR (MDRD) 61 (>89) L 11/11/18 04:38 Glucose 117 mg/dL (70-100) H 11/11/18 04:38 Lactic Acid 0.9 mmol/L (0.5-2.2) 11/10/18 22:20 Calcium 7.6 mg/dL (8.5-10.3) L 11/11/18 04:38 Total Bilirubin 0.6 mg/dL (0.2-1.0) 11/10/18 18:20 AST 32 IU/L (10-42) 11/10/18 18:20 ALT 18 IU/L (10-60) 11/10/18 18:20 Alkaline Phosphatase 88 IU/L (42-121) 11/10/18 18:20 Total Protein 6.8 g/dL (6.7-8.2) 11/10/18 18:20 Albumin 2.6 g/dL (3.2-5.5) L 11/10/18 18:20 Globulin 4.2 g/dL (2.1-4.2) 11/10/18 18:20 Albumin/Globulin Ratio 0.6 (1.0-2.2) L 11/10/18 18:20 Lipase 29 U/L (22-51) 11/10/18 18:20 TSH 0.70 uIU/mL (0.34-5.60) 11/11/18 04:38 Urine Color YELLOW 11/10/18 20:20 Urine Clarity CLEAR (CLEAR) 11/10/18 20:20 Urine pH 6.0 PH (5.0-7.5) 11/10/18 20:20 Ur Specific [place] 1.015 (1.002-1.030) 11/10/18 20:20 Urine Protein NEGATIVE mg/dL (NEGATIVE) 11/10/18 20:20 Urine Glucose (UA) NEGATIVE mg/dL (NEGATIVE) 11/10/18 20:20 Urine Ketones 15 mg/dL (NEGATIVE) H 11/10/18 20:20 Urine Occult Blood NEGATIVE (NEGATIVE) 11/10/18 20:20 Urine Nitrite POSITIVE (NEGATIVE) H 11/10/18 20:20 Urine Bilirubin NEGATIVE (NEGATIVE) 11/10/18 20:20 Urine Urobilinogen 0.2 (NORMAL) E.U./dL (NORMAL) 11/10/18 20:20 Ur Leukocyte Esterase NEGATIVE (NEGATIVE) 11/10/18 20:20 Urine RBC None Seen /HPF (0-5) 11/10/18 20:20 Urine WBC 11-25 /HPF (0-5) H 11/10/18 20:20 Ur Squamous Epith Cells FEW Squamous (<= Few) 11/10/18 20:20 Urine Bacteria Many /HPF (None Seen) H 11/10/18 20:20 Ur Microscopic Review INDICATED 11/10/18 20:20 Urine Culture Comments INDICATED 11/10/18 20:20 Group A Strep Rapid Negative (Negative) 11/10/18 19:13 Sepsis Event Note (H) - Evaluation Current Stage of Sepsis: Sepsis Possible source of Sepsis: positive: Pulmonary, Genitourinary - Sepsis Criteria Sepsis Criteria: Recorded Heart Rate greater than 90 bpm, WBC count greater than 12,000 or less than 4000
[2018-11-11 09:52] LABS: % IRON SATURATION 4 % (20-50); IRON 6 ug/dL (28-170); TOTAL IRON BINDING CAPACITY 168 ug/dL (250-450); TRANSFERRIN 120 mg/dL (192-382)
[2018-11-11 09:59] LABS: FOLATE 20.91 ng/mL (5.90 - >24.8)
--- NOTE | 2018-11-11 10:02 | CONSULTATION NOTE ---
Referring Provider Name of Referring Provider:: Dr. Millan Consult Date: 11/11/18 Chief Complaint - Chief Complaint Chief Complaint: mouth pain History of Present Illness - Admitted From Admitted From:: ER - History Obtained From Records Reviewed: yes History obtained from: pt and records Exam Limitations: none - History of Present Illness HPI Comment/Other: 73 yo female in her usual state of health until the past several months, when she has been having difficulty with burning eyes for which she has seen her eye doctor and been given various topical eye drops without much improvement. Over the past month she has also been having difficulty with a dry, painful mouth for which she has seen her PCP and an urgent care center and been given various m outh washes with no significant improvement. She reports pain with eating and drinking in her mouth, but when she swallows there is no dysphagia. She denies heartburn, waterbrash, epigastric pain, or use of antacids on a regular basis. She also reports weight loss that she attributes to difficulty with eating, 10# over the past month or so. She also reports fever, weakness and fatigue over the past week with dyspnea on exertion prompting ER evaluation yesterday evening with findings of multilobar pneumonitis and subsequent admission. Because of sx thought to be dysphagia and odynophagia surgical consultation was requested. Neg FH GI tumors. She reports a hx of colon polyps, with her last colonoscopy over 10 yrs ago. No change in bowel habits except diarrhea with one of her mouth wash meds which resolved with discontinuation of same. No melena, hematochezia, N/V, hematemeis. 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 Social History Notes: She denies alcohol, tobacco or illicit drug use - Substance History Use: Uses substance without health or social issues: NONE - POLST Patient has POLST: No POLST Status: Full Code Meds/Allgy - Home Medications Home Medications: Ambulatory Orders Medication Instructions Recorded Confirmed Aspirin Chewable [St Cody 81 mg PO DAILY 10/16/12 11/06/14 Aspirin] Bisacodyl [Dulcolax] 10 mg PO DAILY 10/16/12 11/06/14 Clonazepam 0.5 mg PO TID 10/16/12 11/06/14 Estrogens,Esterified [Menest] 0.3 mg PO DAILY 10/16/12 11/06/14 Labetalol HCl 100 mg PO DAILY 10/16/12 11/06/14 Levothyroxine [Synthroid] 37.5 mcg PO QDAC 10/16/12 11/06/14 Nifedipine [Nifedical Xl] 30 mg PO DAILY 10/16/12 11/06/14 Rabeprazole Sodium [Aciphex] 20 mg PO DAILY 10/16/12 11/06/14 hydroCHLOROthiazide [Hydrodiuril] 25 mg PO DAILY 10/16/12 11/06/14 Dicyclomine HCl [Bentyl] 20 mg PO QID PRN #20 tablet 11/06/14 Estradiol [Vagifem] 1 unit [id number] DAILY 11/06/14 11/06/14 clonazePAM [Clonazepam] 0.5 mg PO TID 11/06/14 11/06/14 traMADol [Ultram] 100 mg PO QID 11/06/14 11/06/14 - Allergies Allergies/Adverse Reactions: Allergies Allergy/AdvReac Type Severity Reaction Status Date / Time iodine Allergy lightheaded Verified 11/10/18 17:46 Sulfa (Sulfonamide Allergy Nausea Verified 11/10/18 17:46 Antibiotics) trifluoperazine HCl * Allergy unknown Verified 11/10/18 17:46 [From Stelazine] Review of Systems - Constitutional Constitutional: reports: Fatigue, Fever, Chills, Malaise, Weakness, Poor appetite, Weight loss - Eyes Eyes: reports: Pain, Irritation - Ears, Nose & Throat Ears, Nose & Throat: reports: Mouth lesions (mouth ulcers recently, not currently present), Other (dry mouth, painful mouth) - Respiratory Respiratory: reports: Cough, Sputum production, SOB with exertion - Gastrointestinal Gastrointestinal: reports: Abdominal pain (chronic tenderness in her midline surgical scar), Diarrhea (recent episode associated with mouthwash, now resolved). denies: Constipation, Rectal bleeding, Black stools, Bloody stools, Nausea, Vomiting - All Other Systems All Other Systems: reports: Reviewed and negative (or covered in HPI/PMH) Exam - Vital Signs Reviewed Vital Signs: Yes Vital Signs: Vital Signs x48h Temp Pulse Resp BP Pulse Ox 11/11/18 07:48 36.6 C 105 H 14 116/58 L 99 11/11/18 04:30 36.5 C 87 16 125/67 99 - Physical Exam General Appearance: positive: Alert, Mild distress Eyes Bilateral: positive: Normal inspection, Conjunctivae nml, No scleral icterus ENT: positive: Dry mucous membranes. negative: Oral lesions Neck: positive: Nml inspection, No JVD, Trachea midline. negative: Lympha denopathy (R), Lymphadenopathy (L) Respiratory: positive: Chest non-tender, No respiratory distress, Rales (faint in right base) Cardiovascular: positive: Regular rate & rhythm, No murmur, No gallop Abdomen: positive: No organomegaly, Nml bowel sounds, No distention, Tenderness (along midline surgical scar, ow nontender). negative: Guarding, Rebound, Hepatomegaly, Splenomegaly, Mass Skin: positive: Color nml, No rash, Warm, Dry. negative: Cyanosis Extremities: positive: No pedal edema. negative: Calf tenderness Neurologic/Psychiatric: positive: Oriented x3 Conclusion/Plan - Diagnosis Diagnosis: 1.Sx of dry eyes (keratoconjunctivitis sicca) and dry mouth (xerostomia) with pain in eyes and mouth most consistent with a dx of Sjogren's syndrome. No signs or sx of significant esophageal disease at present. 2. Pneumonitis, multilobar, with possible evolving lung abscess. - Plan Plan: Evaluation for and treatment as appropriate for dry eyes and mouth, presumed Sjogren's. I do not think EGD is indicated at this time. Evaluation and treatment of pneumonitis as appropriate. I would be happy to see this patient again as needed. Thanks, - Lab Results Fish Bones: 11/11/18 04:38 11/11/18 04:38 - Diagnostic Imaging Results Diagnostic Imaging Results: positive: Final report reviewed, Read independently Diagnostic Imaging Results Comments: See HPI
[2018-11-11] MEDS: PANTOPRAZOLE 40 MG VIAL IV SCH ×2 (10:47→20:14)
[2018-11-11] MEDS ORDERED: FLUCONAZOLE 100 MG TABLET PO SCH (12:00)
[2018-11-11] MEDS: clonazePAM 0.5 MG TABLET PO PRN ×2 (12:11→20:35)
[2018-11-11] MEDS: ACETAMINOPHEN 1,000 MG/100 ML 100 ML IV PRN (16:00)
[2018-11-11] MEDS ORDERED: ZOLPIDEM 5 MG TABLET PO PRN (18:37)
[2018-11-11] MEDS: traMADol 50 MG TABLET PO SCH (19:20)
[2018-11-11] MEDS: guaiFENesin 600 MG TABLET PO SCH (20:12)
[2018-11-11] MEDS: SODIUM CHLORIDE FLUSH 0.9% 10 ML SYRINGE IVP PRN (20:22)
[2018-11-12] MEDS: metroNIDAZOLE 500 MG/100 ML 500 MG/100 ML BAG IV SCH ×4 (00:19→23:23)
[2018-11-12] MEDS: SODIUM CHLORIDE FLUSH 0.9% 10 ML SYRINGE IVP SCH ×4 (00:19→21:18)
[2018-11-12 05:06] LABS: BASOPHILS % (AUTO) 0.2 %; EOSINOPHILS % (AUTO) 0.1 %; LYMPHOCYTES # (AUTO) 1.9 10^3/uL (1.5-3.5); LYMPHOCYTES % (AUTO) 11.1 %; MEAN CORPUSCULAR HEMOGLOBIN 29.5 pg (27.0-31.0); MEAN CORPUSCULAR HGB CONC 30.7 g/dL (32.0-36.0); MEAN CORPUSCULAR VOLUME 96.3 fL (81.0-99.0); MEAN PLATELET VOLUME 8.6 fL (7.9-10.8); MONOCYTES % (AUTO) 5.8 %; NEUTROPHILS # (AUTO) 13.3 10^3/uL (1.5-6.6); PLT - PLATELET COUNT 682 10^3/uL (130-450); RED BLOOD COUNT 2.71 10^6/uL (4.20-5.40); RED CELL DISTRIBUTION WIDTH 14.1 % (12.0-15.0); WHITE BLOOD COUNT 16.6 x10^3/uL (4.8-10.8)
[2018-11-12 05:10] LABS: CALCIUM 7.7 mg/dL (8.5-10.3); CREATININE 0.9 mg/dL (0.4-1.0)
[2018-11-12] MEDS: LEVOTHYROXINE 25 MCG TABLET PO SCH (06:00)
[2018-11-12] MEDS: SODIUM CHLORIDE 0.9% 1,000 ML IV SCH (06:09)
[2018-11-12] MEDS: ACETAMINOPHEN 1,000 MG/100 ML 100 ML IV PRN ×2 (06:09→15:35)
[2018-11-12] MEDS ORDERED: PANTOPRAZOLE 40 MG TABLET PO SCH (07:00)
[2018-11-12] MEDS: FERROUS SULFATE 300 MG/5 ML UDC PO SCH (08:04)
--- NOTE | 2018-11-12 08:33 | PROVIDER PROGRESS NOTE ---
Assessment/Plan - Problem List (1) Sepsis Assessment/Plan: Tachycardia has resolved, but WBC did rise. Continue iv hydration and treatment of pneumonia and UTI. (2) Necrotizing pneumonia Assessment/Plan: This was felt to be an aspiration pneumonia since the infiltrate has gas, and therefore oral anaerobic organisms were suspected. A F/U CXR was done this a.m. and was basically unchanged from the admission CXR. The gas within the multilobar R sided infiltrates, was seen by CT chest, however, and not on CXR, so following her CXR is not helpful. Her "wet cough with green sputum production" that she had for a week before presentation, has stopped, she said. Will order Mucinex and Acapella flutter valve for pulmonary toilet. Continue empiric Flagyl and Levaquin for treatment. The sputum sample also showed alot of yeast, and she is on iv Diflucan. (3) Odynophagia Assessment/Plan: The general surgery consult's impression was that she has Sjogten's syndrome and advised hydration and treatment for that, and did not recommend an EGD since she does not have heartburn or painful swallowing, just burning in the mouth and throat. Will start artificial tears for the dry and burning eyes, that started this problem 1 mo ago. Will order Biotene spray for oral hydration, per Nutrition consult and Pharmacy recommendations. Pain meds are already ordered prn. Her diet will be advanced to solids and the Fire Control Technician B will specify what types of foods for her tray, and will order Ensure twice a day. (4) Dehydration Assessment/Plan: She has less sunken orbits today and has slightly more energy. Continue iv hydration and will add D5 for some calories, and adjust to 0.45 NS due to hypernatremia. When we see what her oral intake amount will be, will decrease and stop the iv hydration. (5) UTI (urinary tract infection) Qualifiers: Urinary tract infection type: acute cystitis Hematuria presence: without hematuria Qualified Code(s): N30.00 - Acute cystitis without hematuria Assessment/Plan: Awaiting urine and blood cultures. She is on empiric Levaquin for the UTI. (6) Diarrhea Assessment/Plan: Liquid stool continues. She thought it was because her diet was only liquids, yogurt and bread for about a month. (7) Malnutrition of moderate degree Assessment/Plan: She reported that she lost about 10 lbs in 1 month due to the new mouth burning. She became weaker and stopped attending [employer] exercise 3 times a week. Fire Control Technician B assessment started today. Continue iv hydration and will add D5 for some calories. Will order Biotene spray for oral hydration, per Nutrition consult and Pharmacy recommendations. Pain meds are already ordered prn. Her diet will be advanced to solids and the Fire Control Technician B will specify what types of foods for her tray, and will order Ensure twice a day. (8) Hypothyroid Assessment/Plan: Her TSH level was good, her home thyroid dose was continued. (9) Hypertension Assessment/Plan: Her home meds were ordered to be continued with hold parameters. (10) Anemia Qualifiers: Anemia type: iron deficiency Assessment/Plan: Normal B12 and Folate but very low Iron stores. Stool is Heme (-) Liquid oral Iron replacement started. (11) Thrombocytosis Assessment/Plan: This was presumed to be reactive, due to infections. Will request a smear eval by Hematology Lab. (12) Hypernatremia Assessment/Plan: Will adjust iv fluids: stop NS at 100 cc/hr and start D5 1/2 NS with KCl at 100 cc/hr. (13) Hypokalemia Assessment/Plan: Possibly from inadequate intake or losses in diarrhea. Will stop NS at 100 cc/hr and start D5 1/2 NS with KCl at 100 cc/hr. Replace serum K and follow BMP daily. (14) Anxiety Assessment/Plan: Her Clonazepam dosing continues while here. - Current Meds Current Meds: Current Medications Generic Name Dose Route Start Last Admin Trade Name Freq PRN Reason Stop Dose Admin Clonazepam 0.5 mg 11/11/18 11:13 11/11/18 20:35 Klonopin PO 0.5 mg TID PRN Administration Anxiety Ferrous Sulfate 300 mg 11/12/18 08:00 11/12/18 08:04 Feosol Liquid PO 300 mg DAILYWM MONICA Administration Guaifenesin 600 mg 11/11/18 21:00 11/11/18 20:12 Mucinex PO 600 mg BID MONICA Administration Metronidazole 500 mg in 100 mls @ 100 mls/hr 11/11/18 08:00 11/12/18 08:04 Flagyl 500 Mg/100 Ml IV 100 mls/hr Q8H MONICA Administration Acetaminophen 100 mls @ 400 mls/hr 11/11/18 13:00 11/12/18 06:40 Ofirmev IV Infused Q6H PRN Infusion PAIN Labetalol HCl 100 mg 11/11/18 21:00 11/11/18 20:12 Trandate PO 100 mg BID MONICA Administration Levothyroxine Sodium 50 mcg 11/12/18 07:00 11/12/18 06:00 Synthroid PO 50 mcg MOWEFR@0700 MONICA Administration Lorazepam 0.5 mg 11/11/18 00:58 11/11/18 01:21 Ativan PO 0.5 mg Q8H PRN Administration Anxiety Pantoprazole Sodium 40 mg 11/11/18 09:00 11/11/18 20:14 Protonix IV 40 mg BID MONICA Administration Pantoprazole Sodium 40 mg 11/12/18 07:00 11/12/18 06:04 Protonix PO Not Given QDAC MONICA Polyethylene Glycol 17 gm 11/11/18 09:00 11/11/18 08:52 Miralax PO Not Given DAILY MONICA Sodium Chloride 10 ml 11/10/18 22:38 11/11/18 20:22 Normal Saline Flush 0.9% IVP 10 ml PRN PRN Administration NEEDED PER PROVIDER ORDERS Sodium Chloride 10 ml 11/11/18 01:00 11/12/18 00:19 Normal Saline Flush 0.9% IVP Not Given 0100,0900,1700 MONICA Tramadol HCl 50 mg 11/11/18 18:38 11/11/18 19:20 Ultram PO 50 mg DAILY MONICA Administration - Lab Result Fish Bone Diagrams: 11/12/18 04:42 11/12/18 04:42 - Additional Planning My Orders: My Active Orders 11/11/18 09:00 Pantoprazole [Protonix] 40 mg IV BID 11/11/18 11:13 clonazePAM [KlonoPIN] 0.5 mg PO TID PRN 11/11/18 13:00 Acetaminophen 1,000 mg/100 ml [Ofirmev] 100 ml IV Q6H 11/11/18 18:37 Zolpidem [Ambien] 5 mg PO QPM PRN 11/11/18 18:38 traMADol [Ultram] 50 mg PO DAILY 11/11/18 21:00 Labetalol [Trandate] 100 mg PO BID guaiFENesin [Mucinex] 600 mg PO BID 11/11/18 Dinner DIET [Full Liquid Diet] [DIET] 11/12/18 07:00 Levothyroxine [Synthroid] 50 mcg PO MOWEFR@0700 Pantoprazole [Protonix] 40 mg PO QDAC 11/12/18 08:00 Ferrous Sulfate Liquid [Feosol Liquid] 300 mg PO DAILYWM 11/12/18 09:00 Aspirin Chewable [[place] Aspirin] 81 mg PO DAILY D5.45ns W/20 Meq KCl 1,000 ml IV 100 mls/hr Estradiol [Estrace] 0.5 mg PO DAILY Fluconazole [Diflucan] 100 mg PO DAILY NIFEdipine [Procardia Xl] 60 mg PO DAILY 11/13/18 07:00 Levothyroxine [Synthroid] 37.5 mcg PO SUTUTHSA@0700 Subjective - Subjective Patient Reports: Other (No change: still has mouth burning, but is hungry and wants to try solids. Cough has become dry. Daughter visited and lifted patient's spirits.) Objective Vital Signs: Vital Signs - 24 hr 11/11/18 11/11/18 11/11/18 11:30 16:00 22:22 Temperature 36.4 C L 36.9 C Heart Rate [ 102 H 127 H 90 Brachial] Heart Rate [ Monitoring electrodes] Respiratory 14 14 Rate Blood Pressure 129/50 L 152/83 H [Right Brachial artery] O2 Saturation 93 98 11/12/18 11/12/18 01:04 04:26 Temperature Heart Rate [ Brachial] Heart Rate [ 81 94 Monitoring electrodes] Respiratory 14 18 Rate Blood Pressure 136/62 H [Right Brachial artery] O2 Saturation 97 Oxygen O2 Source Room air I&O (Last 24 Hrs): Intake and Output Totals x24h 11/10/18 11/11/18 11/12/18 23:59 23:59 23:59 Intake Total 2006. 3951.167 1100.000 Output Total 1100 500 Balance 2851.167 600.000 General: Alert, Oriented x3 HEENT: Mucous membr. moist/pink, Other (Eyes sunken) Neck: Supple, No JVD Neuro: Alert, Non Focal Cardiovascular: Regular rate, No murmurs Respiratory: No respiratory distress, Other (R posterior rhonchi, less than yesterday) Abdomen: Soft, No tenderness, No hepatospenomegaly Extremities: No edema - Results Results: Laboratory Results WBC 16.6 x10^3/uL (4.8-10.8) H 11/12/18 04:42 RBC 2.71 10^6/uL (4.20-5.40) L 11/12/18 04:42 Hgb 8.0 g/dL (12.0-16.0) L 11/12/18 04:42 Hct 26.1 % (37.0-47.0) L 11/12/18 04:42 MCV 96.3 fL (81.0-99.0) 11/12/18 04:42 MCH 29.5 pg (27.0-31.0) 11/12/18 04:42 MCHC 30.7 g/dL (32.0-36.0) L 11/12/18 04:42 RDW 14.1 % (12.0-15.0) 11/12/18 04:42 Plt Count 682 10^3/uL (130-450) H 11/12/18 04:42 MPV 8.6 fL (7.9-10.8) 11/12/18 04:42 Neut # (Auto) 13.3 10^3/uL (1.5-6.6) H 11/12/18 04:42 Lymph # (Auto) 1.9 10^3/uL (1.5-3.5) 11/12/18 04:42 [place] # (Auto) 1.0 10^3/uL (0.0-1.0) 11/12/18 04:42 Eos # (Auto) 0.0 10^3/uL (0.0-0.7) 11/12/18 04:42 Baso # (Auto) 0.0 10^3/uL (0.0-0.1) 11/12/18 04:42 Absolute Nucleated RBC 0.00 x10^3/uL 11/12/18 04:42 Nucleated RBC % 0.0 /100WBC 11/12/18 04:42 Sodium 144 mmol/L (135-145) 11/12/18 04:42 Potassium 3.4 mmol/L (3.5-5.0) L 11/12/18 04:42 Chloride 112 mmol/L (101-111) H 11/12/18 04:42 Carbon Dioxide 21 mmol/L (21-32) 11/12/18 04:42 Anion Gap 11.0 (6-13) 11/12/18 04:42 BUN 11 mg/dL (6-20) 11/12/18 04:42 Creatinine 0.9 mg/dL (0.4-1.0) 11/12/18 04:42 Estimated GFR (MDRD) 61 (>89) L 11/12/18 04:42 Glucose 115 mg/dL (70-100) H 11/12/18 04:42 Lactic Acid 0.9 mmol/L (0.5-2.2) 11/10/18 22:20 Calcium 7.7 mg/dL (8.5-10.3) L 11/12/18 04:42 Iron 6 ug/dL (28-170) L 11/11/18 04:38 TIBC 168 ug/dL (250-450) L 11/11/18 04:38 % Saturation 4 % (20-50) L 11/11/18 04:38 Transferrin 120 mg/dL (192-382) L 11/11/18 04:38 Total Bilirubin 0.6 mg/dL (0.2-1.0) 11/10/18 18:20 AST 32 IU/L (10-42) 11/10/18 18:20 ALT 18 IU/L (10-60) 11/10/18 18:20 Alkaline Phosphatase 88 IU/L (42-121) 11/10/18 18:20 Total Protein 6.8 g/dL (6.7-8.2) 11/10/18 18:20 Albumin 2.6 g/dL (3.2-5.5) L 11/10/18 18:20 Globulin 4.2 g/dL (2.1-4.2) 11/10/18 18:20 Albumin/Globulin Ratio 0.6 (1.0-2.2) L 11/10/18 18:20 Lipase 29 U/L (22-51) 11/10/18 18:20 Vitamin B12 1387 pg/mL (180-914) H 11/11/18 04:38 Folate 20.91 ng/mL (5.90 - >24.8) 11/11/18 04:38 TSH 0.70 uIU/mL (0.34-5.60) 11/11/18 04:38 Urine Color YELLOW 11/10/18 20:20 Urine Clarity CLEAR (CLEAR) 11/10/18 20:20 Urine pH 6.0 PH (5.0-7.5) 11/10/18 20:20 Ur Specific [place] 1.015 (1.002-1.030) 11/10/18 20:20 Urine Protein NEGATIVE mg/dL (NEGATIVE) 11/10/18 20:20 Urine Glucose (UA) NEGATIVE mg/dL (NEGATIVE) 11/10/18 20:20 Urine Ketones 15 mg/dL (NEGATIVE) H 11/10/18 20:20 Urine Occult Blood NEGATIVE (NEGATIVE) 11/10/18 20:20 Urine Nitrite POSITIVE (NEGATIVE) H 11/10/18 20:20 Urine Bilirubin NEGATIVE (NEGATIVE) 11/10/18 20:20 Urine Urobilinogen 0.2 (NORMAL) E.U./dL (NORMAL) 11/10/18 20:20 Ur Leukocyte Esterase NEGATIVE (NEGATIVE) 11/10/18 20:20 Urine RBC None Seen /HPF (0-5) 11/10/18 20:20 Urine WBC 11-25 /HPF (0-5) H 11/10/18 20:20 Ur Squamous Epith Cells FEW Squamous (<= Few) 11/10/18 20:20 Urine Bacteria Many /HPF (None Seen) H 11/10/18 20:20 Ur Microscopic Review INDICATED 11/10/18 20:20 Urine Culture Comments INDICATED 11/10/18 20:20 Stl C. diff Tox B Gene NEGATIVE (NEGATIVE) 11/11/18 12:50 Group A Strep Rapid Negative (Negative) 11/10/18 19:13 Sepsis Event Note (H) - Evaluation Current Stage of Sepsis: Sepsis Possible source of Sepsis: positive: Pulmonary, Genitourinary - Sepsis Criteria Sepsis Criteria: Recorded Heart Rate greater than 90 bpm, WBC count greater than 12,000 or less than 4000
[2018-11-12] MEDS ORDERED: traMADol 50 MG TABLET PO SCH (09:00)
[2018-11-12] MEDS: POLYETHYLENE GLYCOL 3350 17 GM PACKET PO SCH (09:36)
--- NOTE | 2018-11-12 09:45 | XRAY Report ---
Reason: F/U pneumonia Procedure Date: 11/12/2018 Accession Number: [id number] / [id number] Procedure: XR - Chest 1 View X-Ray CPT Code: 86835 FULL RESULT: EXAM: CHEST RADIOGRAPHY EXAM DATE: 11/12/2018 09:29 AM. CLINICAL HISTORY: Followup pneumonia. COMPARISON: CHEST 2 VIEW 11/10/2018 7:34 PM CHEST W/ 11/10/2018 8:56 PM. TECHNIQUE: 1 view. FINDINGS: Lungs/Pleura: Persistent dense masslike consolidation at the right upper lung, without evidence of cavitation detected on current study. This area appears stable versus comparisons. Tenting at the right hemidiaphragm on today's study indicates upward retraction due to the right upper lung consolidation. Left lung appears clear. Mediastinum: Heart size within normal limits. Other: Stable moderate thoracic scoliosis. IMPRESSION: Persistent dense consolidation right upper lung. No cavitation detected on current imaging. RADIA
[2018-11-12] MEDS: PANTOPRAZOLE 40 MG VIAL IV SCH ×2 (10:24→21:18)
[2018-11-12] MEDS: D5.45NS W/20 MEQ KCL 1,000 ML IV SCH ×2 (10:24→21:17)
[2018-11-12] MEDS: ASPIRIN CHEW 81 MG TABLET PO SCH (10:25)
[2018-11-12] MEDS: ESTRADIOL 1 MG TABLET PO SCH (10:25)
[2018-11-12] MEDS: traMADol 50 MG TABLET PO SCH (10:25)
[2018-11-12] MEDS: NIFEdipine ER 30 MG TABLET PO SCH (10:26)
[2018-11-12] MEDS: LABETALOL 100 MG TABLET PO SCH ×2 (10:26→21:17)
[2018-11-12] MEDS: guaiFENesin 600 MG TABLET PO SCH ×2 (10:26→21:17)
[2018-11-12] MEDS: FLUCONAZOLE 100 MG TABLET PO SCH (10:26)
[2018-11-12] MEDS ORDERED: PSYLLIUM PACKET PO PRN (10:34)
[2018-11-12] MEDS: LACTOBACILLUS RHAMNOSUS GG CAPSULE PO SCH (11:57)
[2018-11-12] MEDS: SALIVA STIMULANT SPRAY 44.3 ML BOTTLE PO PRN ×2 (11:58→18:23)
[2018-11-12] MEDS: CARBOXYMETHYLCELLULOSE OPHTH DROPS EACHEYE SCH ×3 (13:05→22:21)
[2018-11-12] MEDS: clonazePAM 0.5 MG TABLET PO PRN (15:35)
[2018-11-12] MEDS: levoFLOXacin 750 MG/150 ML 750 MG/150 ML BAG IV SCH (21:17)
[2018-11-12] MEDS: LORazepam 0.5 MG TABLET PO PRN (21:17)
[2018-11-12] MEDS: SODIUM CHLORIDE FLUSH 0.9% 10 ML SYRINGE IVP PRN (21:18)
[2018-11-13] MEDS: clonazePAM 0.5 MG TABLET PO PRN ×3 (03:21→20:22)
[2018-11-13] MEDS: SALIVA STIMULANT SPRAY 44.3 ML BOTTLE PO PRN ×2 (03:25→12:09)
[2018-11-13] MEDS: ACETAMINOPHEN 1,000 MG/100 ML 100 ML IV PRN (03:37)
[2018-11-13] MEDS: LEVOTHYROXINE 25 MCG TABLET PO SCH (06:09)
[2018-11-13 06:34] LABS: BASOPHILS # (AUTO) 0.1 10^3/uL (0.0-0.1); BASOPHILS % (AUTO) 0.4 %; EOSINOPHILS # (AUTO) 0.1 10^3/uL (0.0-0.7); EOSINOPHILS % (AUTO) 0.7 %; HGB - HEMOGLOBIN 8.7 g/dL (12.0-16.0); LYMPHOCYTES # (AUTO) 1.8 10^3/uL (1.5-3.5); LYMPHOCYTES % (AUTO) 11.6 %; MEAN CORPUSCULAR HEMOGLOBIN 31.2 pg (27.0-31.0); MEAN CORPUSCULAR HGB CONC 32.7 g/dL (32.0-36.0); MEAN CORPUSCULAR VOLUME 95.3 fL (81.0-99.0); MEAN PLATELET VOLUME 8.8 fL (7.9-10.8); MONOCYTES # (AUTO) 1.2 10^3/uL (0.0-1.0); MONOCYTES % (AUTO) 7.9 %; NEUTROPHILS % (AUTO) 76.6 %; PLT - PLATELET COUNT 708 10^3/uL (130-450); RED BLOOD COUNT 2.79 10^6/uL (4.20-5.40); RED CELL DISTRIBUTION WIDTH 14.2 % (12.0-15.0); WHITE BLOOD COUNT 15.6 x10^3/uL (4.8-10.8)
[2018-11-13 06:43] LABS: CALCIUM 7.6 mg/dL (8.5-10.3)
[2018-11-13] MEDS: CARBOXYMETHYLCELLULOSE OPHTH DROPS EACHEYE SCH ×4 (08:12→21:09)
[2018-11-13] MEDS: POLYETHYLENE GLYCOL 3350 17 GM PACKET PO SCH (08:13)
[2018-11-13] MEDS: FERROUS SULFATE 300 MG/5 ML UDC PO SCH (08:15)
[2018-11-13] MEDS: D5.45NS W/20 MEQ KCL 1,000 ML IV SCH ×2 (08:22→19:59)
[2018-11-13] MEDS: LABETALOL 100 MG TABLET PO SCH ×2 (08:31→20:22)
[2018-11-13] MEDS: FLUCONAZOLE 100 MG TABLET PO SCH (08:32)
[2018-11-13] MEDS: ASPIRIN CHEW 81 MG TABLET PO SCH (08:32)
[2018-11-13] MEDS: ESTRADIOL 1 MG TABLET PO SCH (08:32)
[2018-11-13] MEDS: NIFEdipine ER 30 MG TABLET PO SCH (08:32)
[2018-11-13] MEDS: guaiFENesin 600 MG TABLET PO SCH ×2 (08:32→20:22)
[2018-11-13] MEDS: PANTOPRAZOLE 40 MG VIAL IV SCH ×2 (08:33→20:22)
[2018-11-13] MEDS: traMADol 50 MG TABLET PO SCH (08:33)
[2018-11-13] MEDS: LACTOBACILLUS RHAMNOSUS GG CAPSULE PO SCH (08:33)
[2018-11-13] MEDS: SODIUM CHLORIDE FLUSH 0.9% 10 ML SYRINGE IVP SCH ×2 (08:34→16:37)
[2018-11-13] MEDS: metroNIDAZOLE 500 MG/100 ML 500 MG/100 ML BAG IV SCH ×2 (08:34→16:37)
--- NOTE | 2018-11-13 11:10 | PROVIDER PROGRESS NOTE ---
Subjective - Prog Note Date Prog Note Date: 11/13/18 Prog Note Time: 11:08 - Subjective Pt reports feeling: No change Subjective: she's exhausted. feels like she's getting no sleep from all the noise a hospital makes in the evenings. tired. no appetite. hard to get up to bathroom but able to do it.still describes the burning of right cheek, dry mouth, hard to swallow. Current Medications - Current Medications Current Medications: Active Medications Aspirin ([place] Aspirin) 81 mg PO DAILY [facility] Last Admin: 11/13/18 08:32 Dose: 81 mg Carboxymethylcellulose (Refresh 1% Ophth Drops) 1 drops EACHEYE QID [facility] Last Admin: 11/13/18 08:12 Dose: Not Given Clonazepam (Klonopin) 0.5 mg PO TID PRN PRN Reason: Anxiety Last Admin: 11/13/18 03:21 Dose: 0.5 mg Estradiol (Estrace) 0.5 mg PO DAILY [facility] Last Admin: 11/13/18 08:32 Dose: 0.5 mg Ferrous Sulfate (Feosol Liquid) 300 mg PO DAILYWM [facility] Last Admin: 11/13/18 08:15 Dose: 300 mg Fluconazole (Diflucan) 100 mg PO DAILY [facility] Last Admin: 11/13/18 08:32 Dose: 100 mg Guaifenesin (Mucinex) 600 mg PO BID [facility] Last Admin: 11/13/18 08:32 Dose: 600 mg Levofloxacin (Levaquin 750 Mg/150 Ml) 750 mg in 150 mls @ 100 mls/hr IV Q48H [facility] Last Infusion: 11/12/18 22:47 Dose: Infused Metronidazole (Flagyl 500 Mg/100 Ml) 500 mg in 100 mls @ 100 mls/hr IV Q8H [facility] Last Admin: 11/13/18 08:34 Dose: 100 mls/hr Potassium Chloride/Dextrose/Sod Cl (D5.45ns W/20 Meq Kcl) 1,000 mls @ 100 mls/hr IV .Q10H [facility] Last Admin: 11/13/18 08:22 Dose: 100 mls/hr Labetalol HCl (Trandate) 100 mg PO BID [facility] Last Admin: 11/13/18 08:31 Dose: 100 mg Lactobacillus Rhamnosus (Culturelle) 1 cap PO DAILY [facility] Last Admin: 11/13/18 08:33 Dose: 1 cap Levothyroxine Sodium (Synthroid) 37.5 mcg PO SUTUTHSA@0700 [facility] Last Admin: 11/13/18 06:09 Dose: 37.5 mcg Levothyroxine Sodium (Synthroid) 50 mcg PO MOWEFR@0700 [facility] Last Admin: 11/12/18 06:00 Dose: 50 mcg Lorazepam (Ativan) 0.5 mg PO Q8H PRN PRN Reason: Anxiety Last Admin: 11/12/18 21:17 Dose: 0.5 mg Nifedipine (Procardia Xl) 60 mg PO DAILY [facility] Last Admin: 11/13/18 08:32 Dose: 60 mg Ondansetron HCl (Zofran Odt) 4 mg TL Q6HR PRN PRN Reason: Nausea / Vomiting Pantoprazole Sodium (Protonix) 40 mg IV BID [facility] Last Admin: 11/13/18 08:33 Dose: 40 mg Polyethylene Glycol (Miralax) 17 gm PO DAILY [facility] Last Admin: 11/13/18 08:13 Dose: Not Given Psyllium Hydrophilic Mucilloid (Metamucil) 1 packet PO DAILY PRN PRN Reason: Constipation Saliva Substitute (Biotene Moisturizing Mouth [place]) 2 sprays PO Q4H PRN PRN Reason: Mouth Sore Pain Last Admin: 11/13/18 03:25 Dose: 2 sprays Sodium Chloride (Normal Saline Flush 0.9%) 10 ml IVP PRN PRN PRN Reason: NEEDED PER PROVIDER ORDERS Last Admin: 11/12/18 21:18 Dose: 10 ml Sodium Chloride (Normal Saline Flush 0.9%) 10 ml IVP 0100,0900,1700 [facility] Last Admin: 11/13/18 08:34 Dose: 10 ml Tramadol HCl (Ultram) 50 mg PO DAILY [facility] Last Admin: 11/13/18 08:33 Dose: 50 mg Zolpidem Tartrate (Ambien) 5 mg PO QPM PRN PRN Reason: Insomnia Aspirin Chewable [[place] Aspirin] 81 mg PO DAILY 10/16/12 Clonazepam 0.5 mg PO TID PRN 10/16/12 Labetalol HCl 100 mg PO BID 10/16/12 Levothyroxine [Synthroid] 37.5 mcg PO SUTUTHSA@0700 10/16/12 Nifedipine [Nifedical Xl] 60 mg PO DAILY 10/16/12 Estradiol [Vagifem] 20 mcg VG .Q3-4 DAYS 11/06/14 traMADol [Ultram] 50 - 100 mg PO DAILY 11/06/14 Acetaminophen 225 mg PO QID PRN 11/11/18 Estradiol 0.5 mg PO DAILY 11/11/18 Levothyroxine [Synthroid] 50 mcg PO MOWEFR@0700 11/11/18 Loratadine 10 mg PO DAILY 11/11/18 Omeprazole 20 mg PO QDAC 11/11/18 clonazePAM [Clonazepam] 0.5 mg PO TID PRN 11/11/18 Objective - Vital Signs/Intake & Output Reviewed Vital Signs: Yes Vital Signs: Vital Signs x48h Temp Pulse Resp BP Pulse Ox 11/13/18 07:53 36.8 C 97 16 104/79 98 11/13/18 03:43 36.5 C 102 H 100 H 116/56 L 17 L Intake & Output: Intake & Output 11/10/18 11/11/18 11/12/18 11/13/18 23:59 23:59 23:59 23:59 Intake Total 2006.5 3951.167 4333.333 1580 Output Total 1100 1400 1325 Balance 2006. 2851.167 2933.333 255 - Objective General Appearance: positive: No acute distress, Alert, Other (cachectic pale white female looks older than stated age. had a private duty hire aid in room with her that helps her get to bathroom and writes down all the info to be able to report to her nephew in [place] who is a physician. She is asking for records release to allow him to review chart) Eyes Bilateral: positive: PERRL ENT: positive: Pharynx nml Neck: positive: No JVD. negative: Stiff neck, Carotid bruit Respiratory: positive: Chest non-tender, No respiratory distress, Other (rhonchi both lungs posteriorly, diminished at bases.) Cardiovascular: positive: Regular rate & rhythm, Systolic murmur. negative: Gallop/S4, Friction rub Abdomen: positive: Non-tender, No organomegaly, Nml bowel sounds, No distention Skin: positive: Dry, Pallor Extremities: positive: Full ROM, No pedal edema Neurologic/Psychiatric: positive: Oriented x3, CN's nml (2-12), Motor nml, Weakness (generalized. able to sit to tool maintenance worker transfer with standy by assist. but tired, very tired.) - Lab Results Fish Bones: 11/13/18 06:00 11/13/18 06:00 Other Labs: Lab Results x24hrs 11/13/18 11/13/18 Range/Units 06:00 06:00 WBC 15.6 H (4.8-10.8) x10^3/uL RBC 2.79 L (4.20-5.40) 10^6/uL Hgb 8.7 L (12.0-16.0) g/dL Hct 26.6 L (37.0-47.0) % MCV 95.3 (81.0-99.0) fL MCH 31.2 H (27.0-31.0) pg MCHC 32.7 (32.0-36.0) g/dL RDW 14.2 (12.0-15.0) % Plt Count 708 H (130-450) 10^3/uL MPV 8.8 (7.9-10.8) fL Neut # (Auto) 12.0 H (1.5-6.6) 10^3/uL Lymph # (Auto) 1.8 (1.5-3.5) 10^3/uL [place] # (Auto) 1.2 H (0.0-1.0) 10^3/uL Eos # (Auto) 0.1 (0.0-0.7) 10^3/uL Baso # (Auto) 0.1 (0.0-0.1) 10^3/uL Absolute Nucleated RBC 0.00 x10^3/uL Nucleated RBC % 0.0 /100WBC Sodium 137 (135-145) mmol/L Potassium 3.9 (3.5-5.0) mmol/L Chloride 104 (101-111) mmol/L Carbon Dioxide 22 (21-32) mmol/L Anion Gap 11.0 (6-13) BUN 14 (6-20) mg/dL Creatinine 1.0 (0.4-1.0) mg/dL Estimated GFR (MDRD) 54 L (>89) Glucose 128 H (70-100) mg/dL Calcium 7.6 L (8.5-10.3) mg/dL ABX Reporting Has patient been on IV antibiotics over the past 48 hours?: Yes Sepsis Event Note (H) - Evaluation Current Stage of Sepsis: Sepsis Possible source of Sepsis: positive: Pulmonary, Genitourinary - Sepsis Criteria Sepsis Criteria: Recorded Heart Rate greater than 90 bpm, WBC count greater than 12,000 or less than 4000 Assessment/Plan - Problem List (1) Sepsis Impression: From necrotizing pneumonia and UTI. Tachycardia has resolved for the most part. Still was slightly above 100 for mos t of the night, into this am WBC slowly coming down: 18.1> 12.3 >16.6 > 15.5 Blood cultures are negative Sputum gram stain w yeast, no culture report yet. Continue iv hydration and treatment of pneumonia and UTI. (2) Necrotizing pneumonia Assessment/Plan: This was felt to be an aspiration pneumonia since the infiltrate has gas, and therefore oral anaerobic organisms were suspected especially in a patient who has described new dry mouth, new dysphagia. A F/U CXR was done 11/12 am and was basically unchanged from the admission CXR. The gas within the multilobar R sided infiltrates, was seen by CT chest, however, and not on CXR, so following her CXR is not helpful. Her "wet cough with green sputum production" that she had for a week before presentation, has stopped, she said. On Mucinex and Acapella flutter valve for pulmonary toilet since 11/12 and +/- improvement in bringing up phlegm Continue empiric Flagyl and Levaquin for treatment. Day #3 The sputum sample also showed a lot of yeast, and she is on iv Diflucan. CT scan of chest will be redone today. CXR has not been helpful. She is anxious to get her dry mouth addressed and wonders if transfer to a higher level is care is appropriate. If chest CT shows worsening pockets, I will request transfer on basis of need for thoracic surgery opinion. If pockets stable or smaller, may be able to stay here. (3) Odynophagia Assessment/Plan: The general surgery consult's impression was that she has Sjogten's syndrome and advised hydration and treatment for that, and did not recommend an EGD since she does not have heartburn or painful swallowing, just burning in the mouth and throat. Will start artificial tears for the dry and burning eyes, that started this problem 1 mo ago. Will order Biotene spray for oral hydration, per Nutrition consult and Pharmacy recommendations. Pain meds are already ordered prn. Her diet will be advanced to solids and the Heater Mechanic will specify what types of foods for her tray, and will order Ensure twice a day. She feels this is the problem she came to the ER for and that it hasn't been addressed. I've explained that while we recognize the importance to her and how this problem is linked to the necrotizing pneumonia, we've admitted her for the pneumonia and the Rheumatology evaluation will need to occur in the outpatient setting. (4) Dehydration Assessment/Plan: She had less sunken orbits by 11/12 and has slightly more energy. Today getting out of bed. Continue iv hydration and will add D5 for some calories, and adjust to 0.45 NS due to hypernatremia. When we see what her oral intake amount will be, will decrease and stop the iv hydration. (5) UTI (urinary tract infection) Qualifiers: Urinary tract infection type: acute cystitis Hematuria presence: without hematuria Qualified Code(s): N30.00 - Acute cystitis without hematuria Assessment/Plan: Awaiting urine and blood cultures. She is on empiric Levaquin for the UTI. (6) Diarrhea Assessment/Plan: Liquid stool continues. She thought it was because her diet was only liquids, yogurt and bread for about a month. (7) Malnutrition of moderate degree Assessment/Plan: She reported that she lost about 10 lbs in 1 month due to the new mouth burning. She became weaker and stopped attending [employer] exercise 3 times a week. Heater Mechanic assessment 11/12 Continue iv hydration and will add D5 for some calories. Will order Biotene spray for oral hydration, per Nutrition consult and Pharmacy recommendations. Pain meds are already ordered prn. Her diet will be advanced to solids and the Heater Mechanic will specify what types of foods for her tray, and will order Ensure twice a day. (8) Hypothyroid Assessment/Plan: Her TSH level was good, her home thyroid dose was continued. (9) Hypertension Assessment/Plan: Her home meds were ordered to be continued with hold parameters. (10) Anemia Qualifiers: Anemia type: iron deficiency Assessment/Plan: Laboratory Tests 11/11/18 11/11/18 11/11/18 04:38 04:38 04:38 Iron 6 L TIBC 168 L % Saturation 4 L Transferrin 120 L Vitamin B12 1387 H Folate 20.91 TSH 0.70 Normal B12 and Folate but very low Iron stores. Stool is Heme (-) so preliminary thought process is from malnutrition and not from blood loss Liquid oral Iron replacement started. (11) Thrombocytosis Assessment/Plan: This was presumed to be reactive, due to infections. Will request a smear eval by Hematology Lab. Not back yet. Will re-confirm with pathology (12) Hypernatremia read on previous notes but labs show no high sodium. Problem will be deleted. Assessment/Plan: (13) Hypokalemia Assessment/Plan: Possibly from inadequate intake or losses in diarrhea. Will stop NS at 100 cc/hr and start D5 1/2 NS with KCl at 100 cc/hr. Replace serum K and follow BMP daily. today 3.9. (14) Anxiety Assessment/Plan: Her Clonazepam dosing continues while here.
--- NOTE | 2018-11-13 12:35 | CT Report ---
Reason: fu of gas necrosis lung from 11/10 Procedure Date: 11/13/2018 Accession Number: [id number] / [id number] Procedure: CT - CHEST WO CPT Code: FULL RESULT: EXAM: CT CHEST EXAM DATE: 11/13/2018 11:40 AM. CLINICAL HISTORY: Follow up of gas necrosis lung from 11/10. COMPARISONS: CHEST W/ 11/10/2018 8:56 PM. TECHNIQUE: Routine helical CT imaging was performed through the chest. IV contrast: None. Reconstructions: Coronal and sagittal. In accordance with CT protocol optimization, one or more of the following dose reduction techniques were utilized for this exam: automated exposure control, adjustment of mA and/or KV based on patient size, or use of iterative reconstructive technique. FINDINGS: Lungs/Pleura: Slight interval decrease of dense consolidation involving the posterior aspect of the right upper lobe. There is right lung bronchiectasis, and the air lucencies within the dense consolidation on today's study appear to be endobronchial. No discrete cavitary lesions detected. Bronchiectasis is also seen extending into the right middle lobe and right lower lobe. There is central left bronchiectasis as well that appears stable. No new areas of consolidation detected. There are bilateral small pleural fluid collections. Mediastinum: Normal. No adenopathy or masses. The heart and great vessels are normal. Bones: Scoliosis. No acute bony changes detected Visualized Abdomen: Unremarkable. Other: None. IMPRESSION: Slight interval improvement of dense consolidation right upper lobe. No cavitary lesions detected. Bilateral bronchiectasis. RADIA
[2018-11-13] MEDS: ACETAMINOPHEN 325 MG TABLET PO PRN ×2 (12:38→20:22)
[2018-11-13] MEDS: LORazepam 0.5 MG TABLET PO PRN (16:46)
[2018-11-14] MEDS: metroNIDAZOLE 500 MG/100 ML 500 MG/100 ML BAG IV SCH ×3 (00:25→16:22)
[2018-11-14] MEDS: SODIUM CHLORIDE FLUSH 0.9% 10 ML SYRINGE IVP SCH ×3 (00:26→16:22)
[2018-11-14] MEDS: LEVOTHYROXINE 25 MCG TABLET PO SCH (05:26)
[2018-11-14] MEDS: ACETAMINOPHEN 325 MG TABLET PO PRN ×3 (05:26→20:47)
[2018-11-14 06:01] LABS: BASOPHILS # (AUTO) 0.1 10^3/uL (0.0-0.1); BASOPHILS % (AUTO) 0.7 %; EOSINOPHILS # (AUTO) 0.3 10^3/uL (0.0-0.7); EOSINOPHILS % (AUTO) 2.2 %; HGB - HEMOGLOBIN 8.4 g/dL (12.0-16.0); LYMPHOCYTES # (AUTO) 2.4 10^3/uL (1.5-3.5); LYMPHOCYTES % (AUTO) 19.2 %; MEAN CORPUSCULAR HEMOGLOBIN 30.5 pg (27.0-31.0); MEAN CORPUSCULAR HGB CONC 32.1 g/dL (32.0-36.0); MEAN CORPUSCULAR VOLUME 95.3 fL (81.0-99.0); MEAN PLATELET VOLUME 8.5 fL (7.9-10.8); MONOCYTES # (AUTO) 0.9 10^3/uL (0.0-1.0); MONOCYTES % (AUTO) 7.1 %; NEUTROPHILS # (AUTO) 8.3 10^3/uL (1.5-6.6); NEUTROPHILS % (AUTO) 66.7 %; PLT - PLATELET COUNT 679 10^3/uL (130-450); RED BLOOD COUNT 2.75 10^6/uL (4.20-5.40); RED CELL DISTRIBUTION WIDTH 14.4 % (12.0-15.0); WHITE BLOOD COUNT 12.4 x10^3/uL (4.8-10.8)
[2018-11-14 06:19] LABS: CALCIUM 7.9 mg/dL (8.5-10.3); CREATININE 0.9 mg/dL (0.4-1.0)
[2018-11-14 06:37] LABS: PLATELET ESTIMATE, MANUAL INCREASED (>450,000) (NORMAL); PLATELET MORPHOLOGY NORMAL APPEARANCE (NORMAL); RBC MORPHOLOGY (MULTIPLE) 2+ HYPOCHROMASIA (NORMAL)
[2018-11-14 06:38] LABS: DIFFERENTIAL COMMENT MANUAL=AUTO DIFF
[2018-11-14] MEDS: ESTRADIOL 1 MG TABLET PO SCH (08:24)
[2018-11-14] MEDS: FERROUS SULFATE 300 MG/5 ML UDC PO SCH (08:24)
[2018-11-14] MEDS: ASPIRIN CHEW 81 MG TABLET PO SCH (08:24)
[2018-11-14] MEDS: PANTOPRAZOLE 40 MG VIAL IV SCH ×2 (08:25→20:39)
[2018-11-14] MEDS: CARBOXYMETHYLCELLULOSE OPHTH DROPS EACHEYE SCH ×4 (08:25→20:41)
[2018-11-14] MEDS: NIFEdipine ER 30 MG TABLET PO SCH (08:25)
[2018-11-14] MEDS: FLUCONAZOLE 100 MG TABLET PO SCH (08:26)
[2018-11-14] MEDS: guaiFENesin 600 MG TABLET PO SCH ×2 (08:26→20:39)
[2018-11-14] MEDS: traMADol 50 MG TABLET PO SCH (08:26)
[2018-11-14] MEDS: LABETALOL 100 MG TABLET PO SCH ×2 (08:26→20:39)
--- NOTE | 2018-11-14 08:26 | PROVIDER PROGRESS NOTE ---
Subjective - Prog Note Date Prog Note Date: 11/14/18 Prog Note Time: 10:30 - Subjective Pt reports feeling: Improved Subjective: long 45 minute conversation with daughter and . case reviewed, pathophysiology described, treatment plan reviewed. all questions answred. Current Medications - Current Medications Current Medications: Active Medications Acetaminophen (Tylenol) 650 mg PO Q6H PRN PRN Reason: Pain or Fever > 38C (100.4F) Last Admin: 11/14/18 05:26 Dose: 650 mg Aspirin ([place] Aspirin) 81 mg PO DAILY [facility] Last Admin: 11/14/18 08:24 Dose: 81 mg Carboxymethylcellulose (Refresh 1% Ophth Drops) 1 drops EACHEYE QID [facility] Last Admin: 11/14/18 08:25 Dose: Not Given Clonazepam (Klonopin) 0.5 mg PO TID PRN PRN Reason: Anxiety Last Admin: 11/13/18 20:22 Dose: 0.5 mg Estradiol (Estrace) 0.5 mg PO DAILY [facility] Last Admin: 11/14/18 08:24 Dose: 0.5 mg Ferrous Sulfate (Feosol Liquid) 300 mg PO DAILYWM [facility] Last Admin: 11/14/18 08:24 Dose: 300 mg Fluconazole (Diflucan) 100 mg PO DAILY [facility] Last Admin: 11/14/18 08:26 Dose: 100 mg Guaifenesin (Mucinex) 600 mg PO BID [facility] Last Admin: 11/14/18 08:26 Dose: 600 mg Levofloxacin (Levaquin 750 Mg/150 Ml) 750 mg in 150 mls @ 100 mls/hr IV Q48H [facility] Last Infusion: 11/12/18 22:47 Dose: Infused Metronidazole (Flagyl 500 Mg/100 Ml) 500 mg in 100 mls @ 100 mls/hr IV Q8H [facility] Last Admin: 11/14/18 08:24 Dose: 100 mls/hr Labetalol HCl (Trandate) 100 mg PO BID [facility] Last Admin: 11/14/18 08:26 Dose: 100 mg Lactobacillus Rhamnosus (Culturelle) 1 cap PO DAILY [facility] Last Admin: 11/14/18 08:35 Dose: 1 cap Levothyroxine Sodium (Synthroid) 37.5 mcg PO SUTUTHSA@0700 [facility] Last Admin: 11/13/18 06:09 Dose: 37.5 mcg Levothyroxine Sodium (Synthroid) 50 mcg PO MOWEFR@0700 [facility] Last Admin: 11/14/18 05:26 Dose: 50 mcg Lorazepam (Ativan) 0.5 mg PO Q8H PRN PRN Reason: Anxiety Last Admin: 11/13/18 16:46 Dose: 0.5 mg Nifedipine (Procardia Xl) 60 mg PO DAILY [facility] Last Admin: 11/14/18 08:25 Dose: 60 mg Ondansetron HCl (Zofran Odt) 4 mg TL Q6HR PRN PRN Reason: Nausea / Vomiting Pantoprazole Sodium (Protonix) 40 mg IV BID [facility] Last Admin: 11/14/18 08:25 Dose: 40 mg Polyethylene Glycol (Miralax) 17 gm PO DAILY [facility] Last Admin: 11/14/18 08:27 Dose: Not Given Psyllium Hydrophilic Mucilloid (Metamucil) 1 packet PO DAILY PRN PRN Reason: Constipation Saliva Substitute (Biotene Moisturizing Mouth [place]) 2 sprays PO Q4H PRN PRN Reason: Mouth Sore Pain Last Admin: 11/13/18 12:09 Dose: 2 sprays Sodium Chloride (Normal Saline Flush 0.9%) 10 ml IVP PRN PRN PRN Reason: NEEDED PER PROVIDER ORDERS Last Admin: 11/14/18 08:27 Dose: 10 ml Sodium Chloride (Normal Saline Flush 0.9%) 10 ml IVP 0100,0900,1700 [facility] Last Admin: 11/14/18 08:27 Dose: 10 ml Tramadol HCl (Ultram) 50 mg PO DAILY [facility] Last Admin: 11/14/18 08:26 Dose: 50 mg Zolpidem Tartrate (Ambien) 5 mg PO QPM PRN PRN Reason: Insomnia Aspirin Chewable [[place] Aspirin] 81 mg PO DAILY 10/16/12 Clonazepam 0.5 mg PO TID PRN 10/16/12 Labetalol HCl 100 mg PO BID 10/16/12 Levothyroxine [Synthroid] 37.5 mcg PO SUTUTHSA@0700 10/16/12 Nifedipine [Nifedical Xl] 60 mg PO DAILY 10/16/12 Estradiol [Vagifem] 20 mcg VG .Q3-4 DAYS 11/06/14 traMADol [Ultram] 50 - 100 mg PO DAILY 11/06/14 Acetaminophen 225 mg PO QID PRN 11/11/18 Estradiol 0.5 mg PO DAILY 11/11/18 Levothyroxine [Synthroid] 50 mcg PO MOWEFR@0700 11/11/18 Loratadine 10 mg PO DAILY 11/11/18 Omeprazole 20 mg PO QDAC 11/11/18 clonazePAM [Clonazepam] 0.5 mg PO TID PRN 11/11/18 Objective - Vital Signs/Intake & Output Reviewed Vital Signs: Yes Vital Signs: Vital Signs x48h Temp Pulse Resp BP Pulse Ox 11/14/18 08:01 36.9 C 103 H 16 110/49 L 97 11/14/18 05:00 37.2 C 105 H 22 112/50 L 96 11/14/18 00:30 37.1 C 97 16 115/55 L 96 Intake & Output: Intake & Output 11/11/18 11/12/18 11/13/18 11/14/18 23:59 23:59 23:59 23:59 Intake Total 3951.167 4333.333 3280 100 Output Total 1100 1400 3575 1200 Balance 2851.167 2933.333 -295 -1100 - Objective General Appearance: positive: Alert, Other (pale, cachectic, white female, sitting up in bed.) Eyes Bilateral: positive: PERRL, EOMI Neck: positive: No JVD. negative: Stiff neck, Carotid bruit Respiratory: positive: Chest non-tender Cardiovascular: positive: Regular rate & rhythm. negative: Systolic murmur, Gallop/S4, Friction rub Abdomen: positive: Non-tender, No organomegaly, Nml bowel sounds, No distention Skin: positive: Warm, Dry, Pallor Extremities: positive: Non-tender, No pedal edema Neurologic/Psychiatric: positive: Oriented x3, CN's nml (2-12), Motor nml, Weakness - Lab Results Fish Bones: 11/14/18 05:40 11/14/18 05:40 Other Labs: Lab Results x24hrs 11/14/18 11/14/18 Range/Units 05:40 05:40 WBC 12.4 H (4.8-10.8) x10^3/uL RBC 2.75 L (4.20-5.40) 10^6/uL Hgb 8.4 L (12.0-16.0) g/dL Hct 26.2 L (37.0-47.0) % MCV 95.3 (81.0-99.0) fL MCH 30.5 (27.0-31.0) pg MCHC 32.1 (32.0-36.0) g/dL RDW 14.4 (12.0-15.0) % Plt Count 679 H (130-450) 10^3/uL MPV 8.5 (7.9-10.8) fL Neut # (Auto) 8.3 H (1.5-6.6) 10^3/uL Lymph # (Auto) 2.4 (1.5-3.5) 10^3/uL Jay # (Auto) 0.9 (0.0-1.0) 10^3/uL Eos # (Auto) 0.3 (0.0-0.7) 10^3/uL Baso # (Auto) 0.1 (0.0-0.1) 10^3/uL Absolute Nucleated RBC 0.00 x10^3/uL Band Neuts % (Manual) Not Reportable Abnorm Lymph % (Manual) Not Reportable Nucleated RBC % 0.0 /100WBC Neutrophils # (Manual) Not Reportable Lymphocytes # (Manual) Not Reportable Monocytes # (Manual) Not Reportable Eosinophils # (Manual) Not Reportable Basophils # (Manual) Not Reportable Differential Comment MANUAL=AUTO DIFF WBC Morphology NORMAL APPEARANCE (NORMAL) Platelet Estimate INCREASED (>450,000) (NORMAL) Platelet Morphology NORMAL APPEARANCE (NORMAL) RBC Morph Micro Appear 2+ HYPOCHROMASIA (NORMAL) Sodium 138 (135-145) mmol/L Potassium 3.9 (3.5-5.0) mmol/L Chloride 104 (101-111) mmol/L Carbon Dioxide 25 (21-32) mmol/L Anion Gap 9.0 (6-13) BUN 9 (6-20) mg/dL Creatinine 0.9 (0.4-1.0) mg/dL Estimated GFR (MDRD) 61 L (>89) Glucose 103 H (70-100) mg/dL Calcium 7.9 L (8.5-10.3) mg/dL ABX Reporting Has patient been on IV antibiotics over the past 48 hours?: Yes Sepsis Event Note (H) - Evaluation Current Stage of Sepsis: Resolved Possible source of Sepsis: positive: Pulmonary, Genitourinary Confirmed Source and Organism (if known) of Sepsis: necrotizing pneumonia and UTI - Sepsis Criteria Sepsis Criteria: Recorded Heart Rate greater than 90 bpm, Respiratory: Increasing oxygen requirements, WBC count greater than 12,000 or less than 4000 Assessment/Plan - Problem List (1) Sepsis Impression: Resolved. From necrotizing pneumonia and UTI. Tachycardia has resolved for the most part. Still was slightly above 100 for most of the night, into this am WBC slowly coming down: 18.1> 12.3 >16.6 > 15.5>12.4 Blood cultures are negative Sputum gram stain w yeast, and scant growth of normal levi. Continue iv hydration and treatment of pneumonia and UTI. (2) Necrotizing pneumonia Assessment/Plan: This was felt to be an aspiration pneumonia since the infiltrate has gas, and therefore oral anaerobic organisms were suspected especially in a patient who has described new dry mouth, new dysphagia and may have Sjogren's A F/U CXR was done 11/12 am and was basically unchanged from the admission CXR. The gas within the multilobar R sided infiltrates, was seen by CT chest, however, and not on CXR, so following her CXR is not helpful. Her "wet cough with green sputum production" that she had for a week before presentation, has stopped, she said. On Mucinex and Acapella flutter valve for pulmonary toilet since 11/12 and +/- improvement in bringing up phlegm Continue empiric Flagyl and Levaquin for treatment. Day #4. The sputum sample also showed a lot of yeast, and she is on iv Diflucan. CT scan of chest was redone 11/13 and shows slight interval decrease of dense consolidation involving the posterior aspect of the right upper lobe. Right lung bronchiectasis and the air lucencies witin the ense consolidation on study appear to be endobronchial. No discrete cavitary lesions. Bronchiectasis ext ends into the right middle lobe and right lower lobe. Central left bronchiectasis stable. No new consolidation. Small BL pleural fluid collections.. CXR has not been helpful. She is anxious to get her dry mouth addressed and wonders if transfer to a higher level is care is appropriate. I requested transfer to at her request and the Medicine service declined the request yesterday once they reviewed CT scans and vitals. I also spoke to the Dipping Machine Operator she requested to be transferred to but Dr. Meza (who graciously and promptly returned my call) is a thoracic surgeon who works on the lung transplants. He had not been made aware of her case. I did let the patient know and explained my plan of rubber tire and tubes supervisor antibiotics in a patient who had early necrotizing pneumonia. She will need minimum of 3 weeks of combined IV and oral. UpToDate recommended Augmentin when she goes to oral meds. In the outpatient setting she can be referred to an appropriate Dipping Machine Operator. I have already faxed a request to Dr. Aguirre (her PCP) today so expedite this. (3) Odynophagia Assessment/Plan: The general surgery consult's impression was that she has Sjogren's syndrome and advised hydration and treatment for that, and did not recommend an EGD since she does not have heartburn or painful swallowing, just burning in the mouth and throat. Start on artificial tears for the dry and burning eyes, that started this problem 1 mo ago. On Biotene spray for oral hydration, per Nutrition consult and Pharmacy recommendations. Pain meds are already ordered prn. Her diet advanced to solids and the Umbrella Supervisor will specify what types of foods for her tray, and will order Ensure twice a day. She feels this is the problem she came to the ER for and that it hasn't been addressed. I've explained that while we recognize the importance to her and how this problem is linked to the necrotizing pneumonia, we've admitted her for the pneumonia and the Rheumatology evaluation will need to occur in the outpatient setting. Again, I have asked Dr. Aguirre via fax today to expedite the process. (4) Dehydration Assessment/Plan: She had less sunken orbits by 11/12 and has slightly more energy. 11/13 getting out of bed. IV hydration stopped today since she is eating and needs to get up more. When we see what her oral intake amount will be, will decrease and stop the iv hydration. (5)E coli UTI (urinary tract infection) Qualifiers: Urinary tract infection type: acute cystitis Hematuria presence: without hematuria Qualified Code(s): N30.00 - Acute cystitis without hematuria Assessment/Plan: Urine grew out E coli. Sensitive to quinolone. She is on empiric Levaquin for the UTI. Day #4. (6) Diarrhea Assessment/Plan: Liquid stool continues. C Dif and Campylobacter negative. She thought it was because her diet was only liquids, yogurt and bread for about a month. (7) Malnutrition of severe degree Assessment/Plan: She reported that she lost about 10 lbs (and >10% weight loss) in 1 month due to the new mouth burning. She became weaker and stopped attending [employer] exercise 3 times a week. She continues to et less than 50% of recommended intake for the last 2 weeks, even here. Not eating except ice cream. Umbrella Supervisor assessment 11/12 IVF will stop since she is eating . Will order Biotene spray for oral hydration, per Nutrition consult and Pharmacy recommendations. Pain meds are already ordered prn. Her diet was advanced to solids and the Umbrella Supervisor will specify what types of foods for her tray, and will order Ensure twice a day. (8) Hypothyroid Assessment/Plan: Her TSH level was good, her home thyroid dose was continued. (9) Hypertension Assessment/Plan: Her home meds were ordered to be continued with hold parameters. (10) Anemia Qualifiers: Anemia type: iron deficiency Assessment/Plan: Laboratory Tests 11/11/18 11/11/18 11/11/18 04:38 04:38 04:38 Iron 6 L TIBC 168 L % Saturation 4 L Transferrin 120 L Vitamin B12 1387 H Folate 20.91 TSH 0.70 Normal B12 and Folate but very low Iron stores. Stool is Heme (-) so preliminary thought process is from malnutrition and not from blood loss Liquid oral Iron replacement started. (11) Thrombocytosis Assessment/Plan: This was presumed to be reactive, due to infections. Will request a smear eval by Hematology Lab. Not back yet. Will re-confirm with pathology (12) Hypernatremia read on previous notes but labs show no high sodium. Problem will be deleted. Assessment/Plan: (13) Hypokalemia Assessment/Plan: Possibly from inadequate intake or losses in diarrhea. Intially we stopped NS at 100 cc/hr and started D5 1/2 NS with KCl at 100 cc/hr. that will be stopped today as well. Replace serum K and follow BMP daily. Today 3.9. (14) Anxiety Assessment/Plan: Her Clonazepam dosing continues while here.
[2018-11-14] MEDS: SODIUM CHLORIDE FLUSH 0.9% 10 ML SYRINGE IVP PRN (08:27)
[2018-11-14] MEDS: POLYETHYLENE GLYCOL 3350 17 GM PACKET PO SCH (08:27)
[2018-11-14] MEDS: LACTOBACILLUS RHAMNOSUS GG CAPSULE PO SCH (08:35)
[2018-11-14] MEDS: clonazePAM 0.5 MG TABLET PO PRN (20:39)
[2018-11-14] MEDS: levoFLOXacin 750 MG/150 ML 750 MG/150 ML BAG IV SCH (20:40)
[2018-11-15] MEDS: metroNIDAZOLE 500 MG/100 ML 500 MG/100 ML BAG IV SCH ×3 (00:40→15:41)
[2018-11-15] MEDS: SODIUM CHLORIDE FLUSH 0.9% 10 ML SYRINGE IVP SCH ×3 (00:41→15:42)
[2018-11-15] MEDS: LEVOTHYROXINE 25 MCG TABLET PO SCH (06:34)
[2018-11-15] MEDS: LORazepam 0.5 MG TABLET PO PRN ×2 (06:40→19:21)
[2018-11-15 08:05] LABS: BASOPHILS # (AUTO) 0.1 10^3/uL (0.0-0.1); BASOPHILS % (AUTO) 0.7 %; EOSINOPHILS # (AUTO) 0.5 10^3/uL (0.0-0.7); EOSINOPHILS % (AUTO) 3.6 %; HGB - HEMOGLOBIN 8.2 g/dL (12.0-16.0); LYMPHOCYTES % (AUTO) 14.7 %; MEAN CORPUSCULAR HEMOGLOBIN 29.6 pg (27.0-31.0); MEAN CORPUSCULAR HGB CONC 30.7 g/dL (32.0-36.0); MEAN CORPUSCULAR VOLUME 96.4 fL (81.0-99.0); MEAN PLATELET VOLUME 8.6 fL (7.9-10.8); MONOCYTES # (AUTO) 0.9 10^3/uL (0.0-1.0); MONOCYTES % (AUTO) 6.7 %; NEUTROPHILS # (AUTO) 9.5 10^3/uL (1.5-6.6); NEUTROPHILS % (AUTO) 69.8 %; PLT - PLATELET COUNT 620 10^3/uL (130-450); RED BLOOD COUNT 2.77 10^6/uL (4.20-5.40); RED CELL DISTRIBUTION WIDTH 14.6 % (12.0-15.0); WHITE BLOOD COUNT 13.7 x10^3/uL (4.8-10.8)
[2018-11-15 08:27] LABS: PLATELET ESTIMATE, MANUAL INCREASED (>450,000) (NORMAL); PLATELET MORPHOLOGY NORMAL APPEARANCE (NORMAL)
[2018-11-15] MEDS: PANTOPRAZOLE 40 MG VIAL IV SCH (09:08)
[2018-11-15] MEDS: guaiFENesin 600 MG TABLET PO SCH ×2 (09:22→19:21)
[2018-11-15] MEDS: FLUCONAZOLE 100 MG TABLET PO SCH (09:23)
[2018-11-15] MEDS: NIFEdipine ER 30 MG TABLET PO SCH (09:23)
[2018-11-15] MEDS: traMADol 50 MG TABLET PO SCH (09:23)
[2018-11-15] MEDS: ESTRADIOL 1 MG TABLET PO SCH (09:23)
[2018-11-15] MEDS: ASPIRIN CHEW 81 MG TABLET PO SCH (09:23)
[2018-11-15] MEDS: LABETALOL 100 MG TABLET PO SCH ×2 (09:23→19:21)
[2018-11-15] MEDS: LACTOBACILLUS RHAMNOSUS GG CAPSULE PO SCH (09:23)
[2018-11-15] MEDS: POLYETHYLENE GLYCOL 3350 17 GM PACKET PO SCH (09:29)
[2018-11-15] MEDS: CARBOXYMETHYLCELLULOSE OPHTH DROPS EACHEYE SCH ×4 (10:25→19:51)
[2018-11-15] MEDS: FERROUS SULFATE 300 MG/5 ML UDC PO SCH (10:25)
--- NOTE | 2018-11-15 11:52 | PROVIDER PROGRESS NOTE ---
Subjective - Prog Note Date Prog Note Date: 11/15/18 Prog Note Time: 11:54 - Subjective Subjective: still without appetite but trying to eat. getting up. still with fast heart rate and WBC up but n fever. Current Medications - Current Medications Current Medications: Active Medications Acetaminophen (Tylenol) 650 mg PO Q6H PRN PRN Reason: Pain or Fever > 38C (100.4F) Last Admin: 11/14/18 20:47 Dose: 650 mg Aspirin ([place] Aspirin) 81 mg PO DAILY [facility] Last Admin: 11/15/18 09:23 Dose: 81 mg Carboxymethylcellulose (Refresh 1% Ophth Drops) 1 drops EACHEYE QID [facility] Last Admin: 11/15/18 10:25 Dose: Not Given Clonazepam (Klonopin) 0.5 mg PO TID PRN PRN Reason: Anxiety Last Admin: 11/14/18 20:39 Dose: 0.5 mg Estradiol (Estrace) 0.5 mg PO DAILY [facility] Last Admin: 11/15/18 09:23 Dose: 0.5 mg Ferrous Sulfate (Feosol Liquid) 300 mg PO DAILYWM [facility] Last Admin: 11/15/18 10:25 Dose: 300 mg Fluconazole (Diflucan) 100 mg PO DAILY [facility] Last Admin: 11/15/18 09:23 Dose: 100 mg Guaifenesin (Mucinex) 600 mg PO BID [facility] Last Admin: 11/15/18 09:22 Dose: 600 mg Levofloxacin (Levaquin 750 Mg/150 Ml) 750 mg in 150 mls @ 100 mls/hr IV Q48H [facility] Last Infusion: 11/14/18 22:28 Dose: Infused Metronidazole (Flagyl 500 Mg/100 Ml) 500 mg in 100 mls @ 100 mls/hr IV Q8H [facility] Last Infusion: 11/15/18 10:10 Dose: Infused Labetalol HCl (Trandate) 100 mg PO BID [facility] Last Admin: 11/15/18 09:23 Dose: 100 mg Lactobacillus Rhamnosus (Culturelle) 1 cap PO DAILY [facility] Last Admin: 11/15/18 09:23 Dose: 1 cap Levothyroxine Sodium (Synthroid) 37.5 mcg PO SUTUTHSA@0700 [facility] Last Admin: 11/15/18 06:34 Dose: 37.5 mcg Levothyroxine Sodium (Synthroid) 50 mcg PO MOWEFR@0700 [facility] Last Admin: 11/14/18 05:26 Dose: 50 mcg Lorazepam (Ativan) 0.5 mg PO Q8H PRN PRN Reason: Anxiety Last Admin: 11/15/18 06:40 Dose: 0.5 mg Nifedipine (Procardia Xl) 60 mg PO DAILY [facility] Last Admin: 11/15/18 09:23 Dose: 60 mg Ondansetron HCl (Zofran Odt) 4 mg TL Q6HR PRN PRN Reason: Nausea / Vomiting Pantoprazole Sodium (Protonix) 40 mg IV BID [facility] Last Admin: 11/15/18 09:08 Dose: 40 mg Polyethylene Glycol (Miralax) 17 gm PO DAILY [facility] Last Admin: 11/15/18 09:29 Dose: Not Given Psyllium Hydrophilic Mucilloid (Metamucil) 1 packet PO DAILY PRN PRN Reason: Constipation Saliva Substitute (Biotene Moisturizing Mouth [place]) 2 sprays PO Q4H PRN PRN Reason: Mouth Sore Pain Last Admin: 11/13/18 12:09 Dose: 2 sprays Sodium Chloride (Normal Saline Flush 0.9%) 10 ml IVP PRN PRN PRN Reason: NEEDED PER PROVIDER ORDERS Last Admin: 11/14/18 08:27 Dose: 10 ml Sodium Chloride (Normal Saline Flush 0.9%) 10 ml IVP 0100,0900,1700 [facility] Last Admin: 11/15/18 09:08 Dose: 10 ml Tramadol HCl (Ultram) 50 mg PO DAILY [facility] Last Admin: 11/15/18 09:23 Dose: 50 mg Zolpidem Tartrate (Ambien) 5 mg PO QPM PRN PRN Reason: Insomnia Aspirin Chewable [[place] Aspirin] 81 mg PO DAILY 10/16/12 Clonazepam 0.5 mg PO TID PRN 10/16/12 Labetalol HCl 100 mg PO BID 10/16/12 Levothyroxine [Synthroid] 37.5 mcg PO SUTUTHSA@0700 10/16/12 Nifedipine [Nifedical Xl] 60 mg PO DAILY 10/16/12 Estradiol [Vagifem] 20 mcg VG .Q3-4 DAYS 11/06/14 traMADol [Ultram] 50 - 100 mg PO DAILY 11/06/14 Acetaminophen 225 mg PO QID PRN 11/11/18 Estradiol 0.5 mg PO DAILY 11/11/18 Levothyroxine [Synthroid] 50 mcg PO MOWEFR@0700 11/11/18 Loratadine 10 mg PO DAILY 11/11/18 Omeprazole 20 mg PO QDAC 11/11/18 clonazePAM [Clonazepam] 0.5 mg PO TID PRN 11/11/18 Objective - Vital Signs/Intake & Output Reviewed Vital Signs: Yes Vital Signs: Vital Signs x48h Temp Pulse Resp BP Pulse Ox 11/15/18 11:45 36.8 C 102 H 16 107/50 L 97 11/15/18 08:05 37.1 C 111 H 16 107/54 L 95 11/15/18 05:00 37.4 C 107 H 20 113/57 L 99 Intake & Output: Intake & Output 11/12/18 11/13/18 11/14/18 11/15/18 23:59 23:59 23:59 23:59 Intake Total 4333.333 3280 1068 200 Output Total 1400 3575 2300 1050 Balance 2933.333 -295 -1232 -850 - Objective General Appearance: positive: No acute distress, Alert, Other (cachectic, pale white femal in NAD, sitting up in bed.) Eyes Bilateral: positive: PERRL ENT: positive: Pharynx nml Neck: positive: No JVD. negative: Stiff neck, Carotid bruit Respiratory: positive: Chest non-tender, Other (egophony right mid lung). negative: Wheezes, Rales, Rhonchi Cardiovascular: positive: Regular rate & rhythm. negative: Systolic murmur, Gallop/S4, Friction rub Abdomen: positive: Non-tender, No organomegaly, Nml bowel sounds, No distention. negative: Guarding, Rebound Skin: positive: Warm, Dry, Pallor. negative: Diaphoresis Extremities: positive: Non-tender, No pedal edema Neurologic/Psychiatric: positive: Oriented x3, CN's nml (2-12), Motor nml, Weakness - Lab Results Fish Bones: 11/15/18 07:40 11/14/18 05:40 Other Labs: Lab Results x24hrs 11/15/18 Range/Units 07:40 WBC 13.7 H (4.8-10.8) x10^3/uL RBC 2.77 L (4.20-5.40) 10^6/uL Hgb 8.2 L (12.0-16.0) g/dL Hct 26.7 L (37.0-47.0) % MCV 96.4 (81.0-99.0) fL MCH 29.6 (27.0-31.0) pg MCHC 30.7 L (32.0-36.0) g/dL RDW 14.6 (12.0-15.0) % Plt Count 620 H (130-450) 10^3/uL MPV 8.6 (7.9-10.8) fL Neut # (Auto) 9.5 H (1.5-6.6) 10^3/uL Lymph # (Auto) 2.0 (1.5-3.5) 10^3/uL [place] # (Auto) 0.9 (0.0-1.0) 10^3/uL Eos # (Auto) 0.5 (0.0-0.7) 10^3/uL Baso # (Auto) 0.1 (0.0-0.1) 10^3/uL Absolute Nucleated RBC 0.00 x10^3/uL Nucleated RBC % 0.0 /100WBC Manual Slide Review Indicated Platelet Estimate INCREASED (>450,000) (NORMAL) Platelet Morphology NORMAL APPEARANCE (NORMAL) RBC Morph Micro Appear 1+ POLYCHROMASIA (NORMAL) ABX Reporting Has patient been on IV antibiotics over the past 48 hours?: Yes Sepsis Event Note (H) - Evaluation Current Stage of Sepsis: Resolved Possible source of Sepsis: positive: Pulmonary, Genitourinary - Sepsis Criteria Sepsis Criteria: Recorded Heart Rate greater than 90 bpm, Respiratory: Increasing oxygen requirements, WBC count greater than 12,000 or less than 4000 Assessment/Plan - Problem List (1) Necrotizing pneumonia Impression: This was felt to be an aspiration pneumonia since the infiltrate has gas, and therefore oral anaerobic organisms were suspected especially in a patient who has described new dry mouth, new dysphagia and may have Sjogren's A F/U CXR was done 9/30 am and was basically unchanged from the admission CXR. The gas within the multilobar R sided infiltrates, was seen by CT chest, however, and not on CXR, so following her CXR is not helpful. Her "wet cough with green sputum production" that she had for a week before presentation, has stopped, she said. On Mucinex and Acapella flutter valve for pulmonary toilet since 11/12 and +/- improvement in bringing up phlegm Continue empiric Flagyl and Levaquin for treatment. Day #5. The sputum sample also showed a lot of yeast, and she is on iv Diflucan. CT scan of chest was redone 11/13 and shows slight interval decrease of dense consolidation involving the posterior aspect of the right upper lobe. Right lung bronchiectasis and the air lucencies witin the ense consolidation on study appear to be endobronchial. No discrete cavitary lesions. Bronchiectasis extends into the right middle lobe and right lower lobe. Central left bronchiectasis stable. No new consolidation. Small BL pleural fluid collections.. CXR has not been helpful. She is anxious to get her dry mouth addressed and wonders if transfer to a higher level is care is appropriate. I requested transfer to at her request and the Medicine service declined the request 11/[address] scans and vitals. I also spoke to the Return Clerk she requested to be transferred to but Dr. Meza (who graciously and promptly returned my call) is a thoracic surgeon who works on the lung transplants. He had not been made aware of her case. I did let the patient know and explained my plan of fpc antibiotics in a patient who had early necrotizing pneumonia. She will need minimum of 3 weeks of combined IV and oral. UpToDate recommended Augmentin when she goes to oral meds. In the outpatient setting she can be referred to an appropriate Return Clerk. I have already faxed a request to Dr. Aguirre (her PCP) 11/14 so as to expedite this. On exam still with low grade tachycardia, no hypoxia, but WBC minimally bummped. Not enough to repeat CT but I am watching closely and if she takes even a small step backward, will redo CT to assess. She will need CT of chest in 3-4 weeks for followup. I will discharge once pulse and WBC closer to normal. (2) Odynophagia Assessment/Plan: The general surgery consult's impression was that she has Sjogren's syndrome and advised hydration and treatment for that, and did not recommend an EGD since she does not have heartburn or painful swallowing, just burning in the mouth and throat. Start on artificial tears for the dry and burning eyes, that started this problem 1 mo ago. On Biotene spray for oral hydration, per Nutrition consult and Pharmacy recommendations. Pain meds are already ordered prn. Her diet advanced to solids and the Varnish Filterer will specify what types of foods for her tray, and will order Ensure twice a day. She feels this is the problem she came to the ER for and that it hasn't been addressed. I've explained that while we recognize the importance to her and how this problem is linked to the necrotizing pneumonia, we've admitted her for the pneumonia and the Rheumatology evaluation will need to occur in the outpatient setting. Again, I have asked Dr. Aguirre via fax 11/14 to expedite the process. (3) Dehydration Assessment/Plan: She had less sunken orbits by 11/12 and has slightly more energy. 11/13 getting out of bed. IV hydration stopped today since she is eating and needs to get up more. When we see what her oral intake amount will be, will decrease and stop the iv hydration. (4)E coli UTI (urinary tract infection) Qualifiers: Urinary tract infection type: acute cystitis Hematuria presence: without hematuria Qualified Code(s): N30.00 - Acute cystitis without hematuria Assessment/Plan: Urine grew out E coli. Sensitive to quinolone. She is on empiric Levaquin for the UTI. Day #5. (5) Diarrhea Assessment/Plan: Liquid stool continues but much slower as each day passes. C Dif and Campylobacter negative. She thought it was because her diet was only liquids, yogurt and bread for about a month. (6) Malnutrition of severe degree Assessment/Plan: She reported that she lost about 10 lbs (and >10% weight loss) in 1 month due to the new mouth burning. She became weaker and stopped attending [employer] exercise 3 times a week. She continues to eat less than 50% of recommended intake for the last 2 weeks, even here. Not eating except ice cream. Varnish Filterer assessment 11/12 IVF will stop since she is eating some. Will order Biotene spray for oral hydration, per Nutrition consult and Pharmacy recommendations. Pain meds are already ordered prn. Her diet was advanced to solids and the Varnish Filterer will specify what types of foods for her tray, and will order Ensure twice a day. This am she had cereal flakes and fruit on her tray. Ate 75%. (7) Hypothyroid Assessment/Plan: Her TSH level was good, her home thyroid dose was continued. (8) Hypertension Assessment/Plan: Her home meds were ordered to be continued with hold parameters. (9) Anemia Qualifiers: Anemia type: iron deficiency Assessment/Plan: Laboratory Tests 11/11/18 11/11/18 11/11/18 04:38 04:38 04:38 Iron 6 L TIBC 168 L % Saturation 4 L Transferrin 120 L Vitamin B12 1387 H Folate 20.91 TSH 0.70 Normal B12 and Folate but very low Iron stores. Stool is Heme (-) so preliminary thought process is from malnutrition and not from blood loss Liquid oral Iron replacement started. (10) Thrombocytosis Assessment/Plan: This was presumed to be reactive, due to infections. Will request a smear eval by Hematology Lab. Not back yet. Will re-confirm with pathology (11) Hypernatremia read on previous notes but labs show no high sodium. Problem will be deleted. Assessment/Plan: (12) Hypokalemia Assessment/Plan: Possibly from inadequate intake or losses in diarrhea. Intially we stopped NS at 100 cc/hr and started D5 1/2 NS with KCl at 100 cc/hr. that will be stopped today as well. Replace serum K and I was following BMP daily. Holding off on daily labs since normal . (13) Anxiety Assessment/Plan: Her Clonazepam dosing continues while here.
[2018-11-15] MEDS: ACETAMINOPHEN 325 MG TABLET PO PRN (14:41)
[2018-11-15] MEDS: clonazePAM 0.5 MG TABLET PO PRN (16:25)
[2018-11-16] MEDS: SODIUM CHLORIDE FLUSH 0.9% 10 ML SYRINGE IVP SCH ×3 (00:01→18:15)
[2018-11-16 05:48] LABS: BASOPHILS # (AUTO) 0.1 10^3/uL (0.0-0.1); BASOPHILS % (AUTO) 0.9 %; EOSINOPHILS # (AUTO) 0.6 10^3/uL (0.0-0.7); EOSINOPHILS % (AUTO) 4.9 %; HGB - HEMOGLOBIN 7.7 g/dL (12.0-16.0); LYMPHOCYTES # (AUTO) 2.5 10^3/uL (1.5-3.5); LYMPHOCYTES % (AUTO) 21.5 %; MEAN CORPUSCULAR HEMOGLOBIN 29.6 pg (27.0-31.0); MEAN CORPUSCULAR HGB CONC 30.8 g/dL (32.0-36.0); MEAN CORPUSCULAR VOLUME 96.2 fL (81.0-99.0); MEAN PLATELET VOLUME 8.7 fL (7.9-10.8); MONOCYTES % (AUTO) 8.8 %; NEUTROPHILS # (AUTO) 6.9 10^3/uL (1.5-6.6); NEUTROPHILS % (AUTO) 59.7 %; PLT - PLATELET COUNT 600 10^3/uL (130-450); RED CELL DISTRIBUTION WIDTH 14.9 % (12.0-15.0); WHITE BLOOD COUNT 11.5 x10^3/uL (4.8-10.8)
[2018-11-16] MEDS: PANTOPRAZOLE 40 MG TABLET PO SCH (06:17)
[2018-11-16] MEDS: LEVOTHYROXINE 25 MCG TABLET PO SCH (06:17)
[2018-11-16] MEDS: ACETAMINOPHEN 325 MG TABLET PO PRN ×4 (06:23→21:03)
[2018-11-16] MEDS: FERROUS SULFATE 300 MG/5 ML UDC PO SCH (08:01)
[2018-11-16] MEDS: metroNIDAZOLE 500 MG/100 ML 500 MG/100 ML BAG IV SCH ×2 (08:01)
[2018-11-16] MEDS: FLUCONAZOLE 100 MG TABLET PO SCH (08:47)
[2018-11-16] MEDS: NIFEdipine ER 30 MG TABLET PO SCH (08:47)
[2018-11-16] MEDS: LACTOBACILLUS RHAMNOSUS GG CAPSULE PO SCH (08:47)
[2018-11-16] MEDS: guaiFENesin 600 MG TABLET PO SCH ×2 (08:47→21:03)
[2018-11-16] MEDS: LABETALOL 100 MG TABLET PO SCH ×2 (08:48→21:03)
[2018-11-16] MEDS: ESTRADIOL 1 MG TABLET PO SCH (08:48)
[2018-11-16] MEDS: traMADol 50 MG TABLET PO SCH (08:48)
[2018-11-16] MEDS: ASPIRIN CHEW 81 MG TABLET PO SCH (08:48)
[2018-11-16] MEDS: clonazePAM 0.5 MG TABLET PO PRN ×4 (08:49→21:03)
[2018-11-16] MEDS: POLYETHYLENE GLYCOL 3350 17 GM PACKET PO SCH (08:49)
[2018-11-16] MEDS: CARBOXYMETHYLCELLULOSE OPHTH DROPS EACHEYE SCH ×4 (08:53→21:03)
--- NOTE | 2018-11-16 13:38 | PROVIDER PROGRESS NOTE ---
Subjective - Prog Note Date Prog Note Date: 11/16/18 Prog Note Time: 13:43 - Subjective Pt reports feeling: Improved Subjective: tired, no coughing. eating. ambulating to bathroom. Every time she gets up she get tachy Current Medications - Current Medications Current Medications: Active Medications Acetaminophen (Tylenol) 650 mg PO Q6H PRN PRN Reason: Pain or Fever > 38C (100.4F) Last Admin: 11/16/18 06:23 Dose: 650 mg Amoxicillin/Clavulanate Potassium (Augmentin 500/125) 1 tab PO BID [facility] Aspirin ([place] Aspirin) 81 mg PO DAILY [facility] Last Admin: 11/16/18 08:48 Dose: 81 mg Carboxymethylcellulose (Refresh 1% Ophth Drops) 1 drops EACHEYE QID [facility] Last Admin: 11/16/18 08:53 Dose: Not Given Clonazepam (Klonopin) 0.5 mg PO TID PRN PRN Reason: Anxiety Last Admin: 11/16/18 08:49 Dose: 0.5 mg Estradiol (Estrace) 0.5 mg PO DAILY [facility] Last Admin: 11/16/18 08:48 Dose: 0.5 mg Ferrous Sulfate (Feosol Liquid) 300 mg PO DAILYWM [facility] Last Admin: 11/16/18 08:01 Dose: 300 mg Guaifenesin (Mucinex) 600 mg PO BID [facility] Last Admin: 11/16/18 08:47 Dose: 600 mg Labetalol HCl (Trandate) 100 mg PO BID [facility] Last Admin: 11/16/18 08:48 Dose: 100 mg Lactobacillus Rhamnosus (Culturelle) 1 cap PO DAILY [facility] Last Admin: 11/16/18 08:47 Dose: 1 cap Levothyroxine Sodium (Synthroid) 37.5 mcg PO SUTUTHSA@0700 [facility] Last Admin: 11/15/18 06:34 Dose: 37.5 mcg Levothyroxine Sodium (Synthroid) 50 mcg PO MOWEFR@0700 [facility] Last Admin: 11/16/18 06:17 Dose: 50 mcg Lorazepam (Ativan) 0.5 mg PO Q8H PRN PRN Reason: Anxiety Last Admin: 11/15/18 19:21 Dose: 0.5 mg Nifedipine (Procardia Xl) 60 mg PO DAILY [facility] Last Admin: 10/04/19 08:47 Dose: 60 mg Ondansetron HCl (Zofran Odt) 4 mg TL Q6HR PRN PRN Reason: Nausea / Vomiting Pantoprazole Sodium (Protonix) 40 mg PO QDAC [facility] Last Admin: 11/16/18 06:17 Dose: 40 mg Polyethylene Glycol (Miralax) 17 gm PO DAILY [facility] Last Admin: 11/16/18 08:49 Dose: Not Given Psyllium Hydrophilic Mucilloid (Metamucil) 1 packet PO DAILY PRN PRN Reason: Constipation Saliva Substitute (Biotene Moisturizing Mouth [place]) 2 sprays PO Q4H PRN PRN Reason: Mouth Sore Pain Last Admin: 11/13/18 12:09 Dose: 2 sprays Sodium Chloride (Normal Saline Flush 0.9%) 10 ml IVP PRN PRN PRN Reason: NEEDED PER PROVIDER ORDERS Last Admin: 11/14/18 08:27 Dose: 10 ml Sodium Chloride (Normal Saline Flush 0.9%) 10 ml IVP 0100,0900,1700 [facility] Last Admin: 11/16/18 08:02 Dose: 10 ml Tramadol HCl (Ultram) 50 mg PO DAILY [facility] Last Admin: 11/16/18 08:48 Dose: 50 mg Zolpidem Tartrate (Ambien) 5 mg PO QPM PRN PRN Reason: Insomnia Aspirin Chewable [[place] Aspirin] 81 mg PO DAILY 10/16/12 Clonazepam 0.5 mg PO TID PRN 10/16/12 Labetalol HCl 100 mg PO BID 10/16/12 Levothyroxine [Synthroid] 37.5 mcg PO SUTUTHSA@0710/16/12 Nifedipine [Nifedical Xl] 60 mg PO DAILY 10/16/12 Estradiol [Vagifem] 20 mcg VG .Q3-4 DAYS 11/06/14 traMADol [Ultram] 50 - 100 mg PO DAILY 11/06/14 Acetaminophen 225 mg PO QID PRN 11/11/18 Estradiol 0.5 mg PO DAILY 11/11/18 Levothyroxine [Synthroid] 50 mcg PO MOWEFR@0700 11/11/18 Loratadine 10 mg PO DAILY 11/11/18 Omeprazole 20 mg PO QDAC 11/11/18 clonazePAM [Clonazepam] 0.5 mg PO TID PRN 11/11/18 Objective - Vital Signs/Intake & Output Reviewed Vital Signs: Yes Intake & Output: Intake & Output 11/13/18 11/14/18 11/15/18 11/16/18 23:59 23:59 23:59 23:59 Intake Total 3280 1068 1210.000 680 Output Total 3575 2300 2200 500 Balance -295 -1232 -990.000 180 - Objective General Appearance: positive: No acute distress, Alert, Other (thin, pale white female looks older than stated age) Eyes Bilateral: positive: PERRL, EOMI ENT: positive: Pharynx nml Neck: positive: No JVD. negative: Stiff neck, Carotid bruit Respiratory: positive: Chest non-tender, Other (egophony RML). negative: Wheezes, Rales, Rhonchi Cardiovascular: positive: Regular rate & rhythm. negative: Systolic murmur, Gallop/S4, Friction rub Abdomen: positive: Non-tender, No organomegaly, Nml bowel sounds, No distention Skin: positive: Warm, Dry, Pallor. negative: Diaphoresis Extremities: positive: Non-tender, No pedal edema Neurologic/Psychiatric: positive: Oriented x3, CN's nml (2-12), Motor nml - Lab Results Fish Bones: 11/16/18 05:10 11/14/18 05:40 Other Labs: Lab Results x24hrs 11/16/18 Range/Units 05:10 WBC 11.5 H (4.8-10.8) x10^3/uL RBC 2.60 L (4.20-5.40) 10^6/uL Hgb 7.7 L (12.0-16.0) g/dL Hct 25.0 L (37.0-47.0) % MCV 96.2 (81.0-99.0) fL MCH 29.6 (27.0-31.0) pg MCHC 30.8 L (32.0-36.0) g/dL RDW 14.9 (12.0-15.0) % Plt Count 600 H (130-450) 10^3/uL MPV 8.7 (7.9-10.8) fL Neut # (Auto) 6.9 H (1.5-6.6) 10^3/uL Lymph # (Auto) 2.5 (1.5-3.5) 10^3/uL [place] # (Auto) 1.0 (0.0-1.0) 10^3/uL Eos # (Auto) 0.6 (0.0-0.7) 10^3/uL Baso # (Auto) 0.1 (0.0-0.1) 10^3/uL Absolute Nucleated RBC 0.00 x10^3/uL Nucleated RBC % 0.0 /100WBC ABX Reporting Has patient been on IV antibiotics over the past 48 hours?: Yes Sepsis Event Note (H) - Evaluation Current Stage of Sepsis: Resolved Possible source of Sepsis: positive: Pulmonary, Genitourinary - Sepsis Criteria Sepsis Criteria: Recorded Heart Rate greater than 90 bpm, Respiratory: Increasing oxygen requirements, WBC count greater than 12,000 or less than 4000 Assessment/Plan - Problem List (1) Necrotizing pneumonia Impression: This was felt to be an aspiration pneumonia since the infiltrate has gas, and therefore oral anaerobic organisms were suspected especially in a patient who has described new dry mouth, new dysphagia and may have Sjogren's A F/U CXR was done 9/30 am and was basically unchanged from the admission CXR. The gas within the multilobar R sided infiltrates, was seen by CT chest, however, and not on CXR, so following her CXR is not helpful. Her "wet cough with green sputum production" that she had for a week before presentation, has stopped, she said. On Mucinex and Acapella flutter valve for pulmonary toilet since 11/12 and +/- improvement in bringing up phlegm Continue empiric Flagyl and Levaquin for treatment. Day #5. The sputum sample also showed a lot of yeast, and she is on iv Diflucan. CT scan of chest was redone 11/13 and shows slight interval decrease of dense consolidation involving the posterior aspect of the right upper lobe. Right lung bronchiectasis and the air lucencies witin the ense consolidation on study appear to be endobronchial. No discrete cavitary lesions. Bronchiectasis extends into the right middle lobe and right lower lobe. Central left bronchiectasis stable. No new consolidation. Small BL pleural fluid collections.. CXR has not been helpful. She is anxious to get her dry mouth addressed and wonders if transfer to a higher level is care is appropriate. I requested transfer to at her request and the Medicine service declined the request 11/[address] scans and vitals. I also spoke to the Director Non Profit she requested to be transferred to but Dr. Meza (who graciously and promptly returned my call) is a thoracic surgeon who works on the lung transplants. He had not been made aware of her case. I did let the patient know and explained my plan of vermin exterminator antibiotics in a patient who had early necrotizing pneumonia. She will need minimum of 3 weeks of combined IV and oral. UpToDate recommended Augmentin when she goes to oral meds. In the o utpatient setting she can be referred to an appropriate Director Non Profit. I have already faxed a request to Dr. Aguirre (her PCP) 11/14 so as to expedite this. On exam still with low grade tachycardia, no hypoxia, but WBC minimally bummped. Not enough to repeat CT but I am watching closely and if she takes even a small step backward, will redo CT to assess. She will need CT of chest in 3-4 weeks for followup. I will discharge once pulse and WBC closer to normal. I did speak to , Pulmonology from [facility] line yesterday afternoon. She agrees with the above plan. She would have like an ECHO for today to address the tachycardia but there is no tech available until 11/19. Today, I will stop IV abx. Change to Augmentin and watch for 24 hours. The patient doesn't want to stay for the ECHO and would prefer to go home. (2) Odynophagia Assessment/Plan: The general surgery consult's impression was that she has Sjogren's syndrome and advised hydration and treatment for that, and did not recommend an EGD since she does not have heartburn or painful swallowing, just burning in the mouth and throat. Start on artificial tears for the dry and burning eyes, that started this problem 1 mo ago. On Biotene spray for oral hydration, per Nutrition consult and Pharmacy recommendations. Pain meds are already ordered prn. Her diet advanced to solids and the Exceptional Children Teacher Assistant will specify what types of foods for her tray, and will order Ensure twice a day. She feels this is the problem she came to the ER for and that it hasn't been addressed. I've explained that while we recognize the importance to her and how this problem is linked to the necrotizing pneumonia, we've admitted her for the pneumonia and the Rheumatology evaluation will need to occur in the outpatient setting. Again, I have asked Dr. Aguirre via fax 11/14 to expedite the process. She is eating 25% to 100% of her food. (3) Dehydration resolved. Assessment/Plan: She had less sunken orbits by 11/12 and has slightly more energy. 11/13 getting out of bed. IV hydration stopped today since she is eating and needs to get up more. When we see what her oral intake amount will be, will decrease and stop the iv hydration. (4)E coli UTI (urinary tract infection) Qualifiers: Urinary tract infection type: acute cystitis Hematuria presence: without hematuria Qualified Code(s): N30.00 - Acute cystitis without hematuria Assessment/Plan: Urine grew out E coli. Sensitive to quinolone. She is on empiric Levaquin for the UTI. Day #6. She can stop treatment for that today. (5) Diarrhea resolved Assessment/Plan: Liquid stool continues but much slower as each day passes. C Dif and Campylobacter negative. She thought it was because her diet was only liquids, yogurt and bread for about a month. (6) Malnutrition of severe degree Assessment/Plan: She reported that she lost about 10 lbs (and >10% weight loss) in 1 month due to the new mouth burning. She became weaker and stopped attending [employer] exercise 3 times a week. She continues to eat less than 50% of recommended intake for the last 2 weeks, even here. Not eating except ice cream. Exceptional Children Teacher Assistant assessment 11/12 IVF will stop since she is eating some. Will order Biotene spray for oral hydration, per Nutrition consult and Pharmacy recommendations. Pain meds are already ordered prn. Her diet was advanced to solids and the Exceptional Children Teacher Assistant will specify what types of foods for her tray, and will order Ensure twice a day. This am she had cereal flakes and fruit on her tray. Ate 75%. She is consistently eating 25%-100% food for the last 2 days. (7) Hypothyroid Assessment/Plan: Her TSH level was good, her home thyroid dose was continued. (8) Hypertension Assessment/Plan: Her home meds were ordered to be continued with hold parameters. (9) Anemia Qualifiers: Anemia type: iron deficiency Assessment/Plan: Laboratory Tests 11/11/18 11/11/18 11/11/18 04:38 04:38 04:38 Iron 6 L TIBC 168 L % Saturation 4 L Transferrin 120 L Vitamin B12 1387 H Folate 20.91 TSH 0.70 Normal B12 and Folate but very low Iron stores. Stool is Heme (-) so preliminary thought process is from malnutrition and not from blood loss Liquid oral Iron replacement started and continued in the outpatient setting. (10) Thrombocytosis Assessment/Plan: This was presumed to be reactive, due to infections. Will request a smear eval by Hematology Lab. Not back yet. Will re-confirm with pathology (11) Hypernatremia read on previous notes but labs show no high sodium. Problem will be deleted. Assessment/Plan: (12) Hypokalemia Assessment/Plan: Possibly from inadequate intake or losses in diarrhea. Intially we stopped NS at 100 cc/hr and started D5 1/2 NS with KCl at 100 cc/hr. that will be stopped today as well. Replace serum K and I was following BMP daily. Holding off on daily labs since normal . (13) Anxiety Assessment/Plan: Her Clonazepam dosing continues while here.
[2018-11-16] MEDS: AMOX/CLAV 500 MG/125 MG TABLET PO SCH ×2 (14:19→21:03)
[2018-11-17] MEDS: traMADol 50 MG TABLET PO PRN ×2 (00:21→12:14)
[2018-11-17] MEDS: SODIUM CHLORIDE FLUSH 0.9% 10 ML SYRINGE IVP SCH ×2 (00:21→08:48)
[2018-11-17] MEDS: LEVOTHYROXINE 25 MCG TABLET PO SCH (06:05)
[2018-11-17] MEDS: PANTOPRAZOLE 40 MG TABLET PO SCH (06:05)
[2018-11-17] MEDS: ACETAMINOPHEN 325 MG TABLET PO PRN (06:05)
[2018-11-17] MEDS: NIFEdipine ER 30 MG TABLET PO SCH (08:44)
[2018-11-17] MEDS: AMOX/CLAV 500 MG/125 MG TABLET PO SCH (08:44)
[2018-11-17] MEDS: FERROUS SULFATE 300 MG/5 ML UDC PO SCH (08:44)
[2018-11-17] MEDS: guaiFENesin 600 MG TABLET PO SCH (08:44)
[2018-11-17] MEDS: CARBOXYMETHYLCELLULOSE OPHTH DROPS EACHEYE SCH ×2 (08:47→12:16)
[2018-11-17] MEDS: ASPIRIN CHEW 81 MG TABLET PO SCH (08:47)
[2018-11-17] MEDS: ESTRADIOL 1 MG TABLET PO SCH (08:47)
[2018-11-17] MEDS: POLYETHYLENE GLYCOL 3350 17 GM PACKET PO SCH (08:47)
[2018-11-17] MEDS: LABETALOL 100 MG TABLET PO SCH (08:47)
[2018-11-17] MEDS: LACTOBACILLUS RHAMNOSUS GG CAPSULE PO SCH (08:47)
[2018-11-17 09:10] VITALS: BP 111/51
--- NOTE | 2018-11-17 10:40 | Discharge Plan ---
Discharge Plan Problem Reviewed?: Yes Disposition: Home, Self Care Condition: Stable Prescriptions: Amox/Clav 875/125 [Augmentin] 1 each PO Q12H #60 tablet Cholestyramine [Questran] 4 gm PO DAILY #30 packet Diphenoxylate/Atropine [Lomotil] 1 each PO ONCE #60 tablet Ferrous Sulfate 220 mg PO DAILY #150 elixir guaiFENesin [Mucinex] 600 mg PO BID #60 tablet Lactobacillus Rhamnosus GG [Culturelle] 1 cap PO DAILY #30 capsule Diet: Regular Activity Restrictions: Activity as Tolerated Shower Restrictions: No Driving Restrictions: No Instruction Topics: Amoxicillin Clavulanic Acid tablets, Pneumonia, UTI, Bronchiectasis Dc, Aspiration Dysphagia, Sjgren Syndrome Health Concerns: You presented to our hospital complaining of feeling "sick all over" for the last month and having weight loss. You have been very fatigued, not able to keep up with your usual regular activities. You have been having mouth pain for a month. Especially on one side of your cheek that was burning, tingly, dry. You also were having diarrhea. With this was a productive cough, and a fever of 101.2. We found you to have the following problems: 1. Necrotizing pneumonia of the right lung, and small involvement of the left lung. Necrotizing pneumonia occurs because of probable aspiration and the bacteria of your mouth ending up in your lungs. 2. You may have Sjogren's syndrome and need to see a candle wrapping machine operator 3. You had a urinary tract infection was E. coli Plan of Treatment: 1. You were treated with antibiotics that treat the bacteria associated with aspiration pneumonia. The second CAT scan showed improvement and you no longer had small pockets of gas in the lung tissue. 2. Urinary tract infection treatment and no longer need to take an antibiotic for that. 3. Nutrition services evaluated you and found you to have severe protein calorie malnutrition. This spent many counseling sessions with you helping you modify your diet to improve your health and your caloric intake. Care Goals: 1. Take Augmentin twice a day until you see the order builder loader at [facility]. You must stay on these antibiotics for minimum of [address] Lillie Montes, Compliance Administrator at [facility]. 2. Please have Dr. Aguirre follow through on the referral for a [facility] Compliance Administrator. We have faxed her office, and I believe Dr. Aguirre has already made the referral. Dr. Lillie Montes is taking your name, birthdate, and has reviewed your CAT scans. She is trying to make sure you get to the head of the line in getting an appointment there since there is an up to 3 month wait at times. 3. Please have Dr. Aguirre also send a referral for Rheumatology. You will need to be evaluated for possible Sjogren's disease of the mouth. 4. Take a probiotic daily while on antibiotics 5. Take Questran as needed to help bulk up your stools. Also use Lomotil as needed. 6. Make sure you eat enough calories to help you heal your body. You are currently taking Ensure. I discussed different ways of increasing your calories such as yogurt shakes with a whey protein powder boost/fruits/nuts, and eating that as well. 7. Please see Dr. Aguirre in the next 1 to 2 weeks. Assessment: Patient has expressed understanding of these goals and will follow thru. No Smoking: If you smoke, Please STOP! Call for help. Follow-up with: Micheline Aguirre MD [Primary Care Provider] -
[2018-11-17] MEDS: clonazePAM 0.5 MG TABLET PO PRN (12:14)
--- NOTE | 2018-11-17 16:31 | DISCHARGE SUMMARY ---
"Discharge Summary Admit Date: 11/10/18 Discharge Date: 11/17/18 Discharging Provider: Barbie Bedoya MD Primary Care Provider: Micheline Aguirre MD Code Status: Attempt Resuscitation Condition at Discharge: Stable Discharge Disposition: 01 Home, Self Care - HPI History of Present Illness: Patient seen and examined today around 22:45pm Patient is a 73 y/o female who presented to ED with complain of feeling sick over the past 1 month and having about a 10lb weight loss. She has also been very fatigue and not able to keep up with her regular activities. She also complained of pain in her mouth for which she went to Urgent Care and was prescribed a lidocane/nystatin/dexamethasone combo to swish and spit. However she has been experiencing diarrhea since using it. She describes the color as pinkish-orange. She also reported a subjective fever of 101.2F at home and a greenish productive cough. She denies any episodes of aspiration but is constantly clearing her throat during the interview. She reports pain with ingesting anything. She denies chest pain or dyspnea but then adds that she feels winded. She has chronic mild abd pain as a result of previous abdominal surgery. In the ED she was found to have a WBC of [address] of the chest showed m ultilobar consolidation in the right lung with possible developing necrosis. The patient appears frail. As a result she was presented for admission. History - Past Medical History Cardiovascular: reports: Hypertension Endocrine/Autoimmune: reports: HyPOthyroidism GI: reports: GERD DIE BAKER: reports: Other (Atropic vaginitis) Psych: reports: Anxiety, Panic attacks Musculoskeletal: reports: Chronic back pain Other Past Medical History: Hormone Replacement Therapy - CONSULTS | PROCEDURES Consultations: Lamont Us MD & [facility] Consult Line with Dr. Lee Ann Montes, Pulmonary Procedures: 1. Chest x-ray showing S shaped scoliosis, right upper lobe infiltrate with consolidation. There may be extensions of the superior segment of the right lower lobe. 2. Abdominal pelvis CT with lung bases showing branching nodular opacities partially visualized at the right lung base. Diverticulosis without diverticulitis. Some pelvic floor dysfunction. 3. Chest CT with right lung consolidation involving the posterior/inferior segments of the right upper lobe, and posterior/superior segments of the right lower lobe, and segments of the right middle lobe. There are scattered foci of irregular gas within this consolidation which could represent necrosis. No pleural effusion. 4. Follow-up chest CT showing slight interval decrease of the dense consolidation involving the posterior aspect of the right upper lobe. Right lung bronchiectasis, and the air lucencies within the dense consolidation on today's study appear to be endobronchial. No discrete cavitary lesions detected. Bronchiectasis is also extending into the right middle lobe and right lower lobe. There is central left bronchiectasis as well that appears stable. No new areas of consolidation, small bilateral pleural effusions. 5. Group A strep throat culture negative 6. Urine culture with E. coli 7. Blood cultures negative from November 10 8. Fecal occult blood negative 9. Respiratory culture growing yeast next number 10. Campylobacter antigen assay negative, stool culture negative for Salmonella, Shigella, E. coli, Aeromonas, uricemia or vibrio. 11. Iron deficiency anemia with iron 6, TIBC 168, percent saturation 4, transferrin 120. B12 high at 1387. TSH 0.70. Folate 20.91. - ALLERGIES Allergies/Adverse Reactions: Allergies Allergy/AdvReac Type Severity Reaction Status Date / Time iodine Allergy lightheaded Verified 11/10/18 17:46 Sulfa (Sulfonamide Allergy Nausea Verified 11/10/18 17:46 Antibiotics) trifluoperazine HCl * Allergy unknown Verified 11/10/18 17:46 [From Stelazine] - MEDICATIONS Home Medications: Ambulatory Orders Medication Instructions Recorded Confirmed Aspirin Chewable [[place] 81 mg PO DAILY 10/16/12 11/11/18 Aspirin] Clonazepam 0.5 mg PO TID PRN 10/16/12 11/11/18 Labetalol HCl 100 mg PO BID 10/16/12 11/11/18 Levothyroxine [Synthroid] 37.5 mcg PO SUTUTHSA@0700 10/16/12 11/11/18 Nifedipine [Nifedical Xl] 60 mg PO DAILY 10/16/12 11/11/18 Estradiol [Vagifem] 20 mcg VG .Q3-4 DAYS 11/06/14 11/11/18 traMADol [Ultram] 50 - 100 mg PO DAILY 11/06/14 11/11/18 Acetaminophen 225 mg PO QID PRN 11/11/18 11/11/18 Estradiol 0.5 mg PO DAILY 11/11/18 11/11/18 Levothyroxine [Synthroid] 50 mcg PO MOWEFR@0700 11/11/18 11/11/18 Loratadine 10 mg PO DAILY 11/11/18 11/11/18 Omeprazole 20 mg PO QDAC 11/11/18 11/11/18 clonazePAM [Clonazepam] 0.5 mg PO TID PRN 11/11/18 11/11/18 Amox/Clav 875/125 [Augmentin] 1 each PO Q12H #60 tablet 11/17/18 Cholestyramine [Questran] 4 gm PO DAILY #30 packet 11/17/18 Diphenoxylate/Atropine [Lomotil] 1 each PO ONCE #60 tablet 11/17/18 Ferrous Sulfate 220 mg PO DAILY #150 elixir 11/17/18 Lactobacillus Rhamnosus GG 1 cap PO DAILY #30 capsule 11/17/18 [Culturelle] guaiFENesin [Mucinex] 600 mg PO BID #60 tablet 11/17/18 - LABS Result Diagrams: 11/16/18 05:10 11/14/18 05:40 - SEPSIS Current Stage of Sepsis: Resolved Possible source of Sepsis: Pulmonary, Genitourinary Sepsis Criteria: Recorded Heart Rate greater than 90 bpm, Respiratory: Increasing oxygen requirements, WBC count greater than 12,000 or less than 4000"
== END 2018-11-17 14:16 | disposition home or self-care (01) | DRG 871 ==
LOC: ED 17:32 → MS3 22:38
PROVIDERS: ADMIT Internal Medicine; ATTEND Specialist
DX: J18.1 Lobar pneumonia, unspecified organism (principal); B37.7 Candidal sepsis; J02.9 Acute pharyngitis, unspecified; J85.0 Gangrene and necrosis of lung; E43 Unspecified severe protein-calorie malnutrition; J69.0 Pneumonitis due to inhalation of food and vomit; J47.0 Bronchiectasis with acute lower respiratory infection; Z68.1 Body mass index [BMI] 19.9 or less, adult; N30.00 Acute cystitis without hematuria; E87.0 Hyperosmolality and hypernatremia; R64 Cachexia; B37.1 Pulmonary candidiasis; B96.20 Unspecified Escherichia coli [E. coli] as the cause of diseases classified elsewhere; E86.0 Dehydration; R19.7 Diarrhea, unspecified; D50.9 Iron deficiency anemia, unspecified; E87.6 Hypokalemia; I10 Essential (primary) hypertension; E03.9 Hypothyroidism, unspecified; R00.0 Tachycardia, unspecified; M35.00 Sjogren syndrome, unspecified; F41.9 Anxiety disorder, unspecified; K21.9 Gastro-esophageal reflux disease without esophagitis; R13.10 Dysphagia, unspecified; K57.30 Diverticulosis of large intestine without perforation or abscess without bleeding; G89.29 Other chronic pain; M54.9 Dorsalgia, unspecified; R10.9 Unspecified abdominal pain; Z79.82 Long term (current) use of aspirin; Z79.891 Long term (current) use of opiate analgesic
CPT/HCPCS: 36415; 71045; 71046; 71250; 71260; 74177; 80048; 80053; 81001; 82272; 82607; 82746; 83540; 83605; 83690; 84443; 84466; 85025; 87040; 87045; 87046; 87070; 87086; 87181; 87205; 87430; 87493; 93005; 96361; 96374; 96375; 99284; 99285; A9270; J0131; J1200; Q9967; 81003

== ENCOUNTER 2019-02-07 16:56 | Outpatient (CLI) | payer MEDICARE, BC ==
--- NOTE | 2019-02-07 18:10 | XRAY Report ---
Reason: DYSPNEA,CHEST PAIN Procedure Date: 02/07/2019 Accession Number: [id number] / [id number] Procedure: XR - Chest 2 View X-Ray CPT Code: 40842 Final Report FULL RESULT: EXAM: CHEST RADIOGRAPHY EXAM DATE: 02/07/2019 05:20 PM. CLINICAL HISTORY: DYSPNEA,CHEST PAIN. COMPARISON: CHEST 1 VIEW 11/12/2018 9:11 AM CHEST W/O 11/13/2018 11:39 AM. TECHNIQUE: 2 views. FINDINGS: Lungs/Pleura: Subsegmental atelectasis versus scarring in the right upper lobe. No dense consolidation. No pleural effusions or pneumothorax. Mediastinum: Heart size within normal limits. No pulmonary vascular congestion. Osseous structures: No significant focal osseous lesions. Levoscoliosis of the thoracic lumbar spine. IMPRESSION: 1. Subsegmental atelectasis versus scarring in the right upper lobe. 2. No definite acute cardiopulmonary process identified radiographically. RADIA
== END 2019-02-07 16:57 | disposition home or self-care (01) ==
LOC: DI 16:56
PROVIDERS: ATTEND Internal Medicine
DX: R06.00 Dyspnea, unspecified (principal); R07.9 Chest pain, unspecified
CPT/HCPCS: 36415; 71046; 85379

== ENCOUNTER 2019-04-06 13:50 | Outpatient (CLI) | payer MEDICARE, BC ==
--- NOTE | 2019-04-07 01:55 | CT Report ---
Reason: PNUEMONIA Procedure Date: 04/06/2019 Accession Number: [id number] / [id number] Procedure: CT - CHEST WO CPT Code: Final Report FULL RESULT: EXAM: CT CHEST EXAM DATE: 04/06/2019 02:02 PM. CLINICAL HISTORY: Pneumonia COMPARISONS: CHEST W/O 11/13/2018 11:39 AM CHEST 2 VIEW 02/07/2019 5:05 PM CHEST 1 VIEW 11/12/2018 9:11 AM. TECHNIQUE: Routine helical CT imaging was performed through the chest. IV contrast: None. Reconstructions: Coronal and sagittal. In accordance with CT protocol optimization, one or more of the following dose reduction techniques were utilized for this exam: automated exposure control, adjustment of mA and/or KV based on patient size, or use of iterative reconstructive technique. FINDINGS: Atherosclerotic plaque calcifications are seen in the aorta and innominate artery. The ascending aorta is ectatic measuring 3.1 cm in diameter. The main pulmonary artery measures 1.9 cm in caliber. The heart size is normal. There is no pericardial effusion. Subcentimeter subcarinal lymph nodes are seen. The right hilar lymphadenopathy is unchanged. There is no axillary lymphadenopathy. The trachea is patent. There is unchanged traction on the right mainstem bronchus displacing it posteriorly. Right upper lobe pleural plaques are reidentified. The areas of consolidation in the right apex are unchanged with associated volume loss. The areas of consolidation in the superior aspect of the right lower lobe have significantly decreased with mild areas of consolidation along the periphery. Irregular nodular opacities in the right lower lobe have decreased. Bronchiectasis is again seen in both lungs, right greater than left. Linear areas of parenchymal scarring in the inferior right upper, right middle, and inferior left upper lobes are unchanged. Nodular opacities in the left medial lower lobe are also unchanged. No new areas of consolidation are present. There is no pleural effusion or pneumothorax. The visible portions of the unenhanced liver, kidneys, and spleen are within normal limits. The upper thoracic dextroscoliosis with thoracolumbar levoscoliosis is again seen. No suspicious lytic or blastic lesions are seen. IMPRESSION: 1. Decreased areas of consolidation in the right lower lobe with decreased nodular opacities in the right lower lobe. Recommend additional follow-up imaging in 3 months to document resolution. 2. Unchanged right apical consolidation, pleural plaques, and associated volume loss. 3. Bilateral bronchiectasis, right greater than left. 4. Unchanged areas of parenchymal scarring in the right upper, right middle, left upper, and left lower lobes. RADIA
== END 2019-04-06 13:51 | disposition home or self-care (01) ==
LOC: DI 13:50
PROVIDERS: ATTEND Internal Medicine
DX: J18.9 Pneumonia, unspecified organism (principal); J47.9 Bronchiectasis, uncomplicated
CPT/HCPCS: 71250

== ENCOUNTER 2019-04-13 13:16 | Outpatient (CLI) | payer MEDICARE, BC ==
[~2019-04-13 13:16] MED LIST: ALBUTEROL NEB 2.5 MG/3 ML INH SCH
== END 2019-04-13 13:17 | disposition home or self-care (01) ==
LOC: RT 13:16
PROVIDERS: ATTEND Internal Medicine
DX: R06.00 Dyspnea, unspecified (principal); J44.9 Chronic obstructive pulmonary disease, unspecified
CPT/HCPCS: 94010

== ENCOUNTER 2019-06-03 08:00 | Outpatient (CLI) | payer MEDICARE, BC | END 2019-06-03 23:59 | disposition home or self-care (01) | LOC: LAB.R 08:00 | PROVIDERS: ATTEND Obstetrics & Gynecology | DX: R30.0 Dysuria (principal) | CPT/HCPCS: 87086 ==

== ENCOUNTER 2020-04-30 14:31 | Outpatient (CLI) | payer MEDICARE, BC ==
--- NOTE | 2020-04-30 16:18 | CT Report ---
PROCEDURE: CHEST WO INDICATIONS: INFILTRATE TECHNIQUE: Noncontrast 5 mm thick sections acquired from the pulmonary apices to the posterior costophrenic angl es. 7 mm thick coronal and sagittal MIP reformats were then acquired. For radiation dose reduction, the following was used: automated exposure control, adjustment of mA and/or kV according to patient size. COMPARISON: 04/06/2019 FINDINGS: Image quality: Excellent. Lungs and pleura: Coarse irregular biapical pleural plaquing and calcification. Segmental atelectatic changes with patchy consolidation and groundglass opacity involving superior segment right lower lob e. There is traction and varicose bronchiectasis in the superior segment right lower lobe, and cylind rical bronchiectasis with peribronchial thickening in the right middle lobe. Minor tree-in-bud pneumo nitis present laterally at the right lung base. Mild bronchiectasis diffusely in the left lung. The overall pattern is quite stable compared to the prior study and there are no new consolidations o r significant worsening. No pleural effusions. Pleural-based nodular scar in the lateral left lower l obe, right lower lobe, and linear scar in the medial left lower lobe are stable. Mediastinum: Heart size is normal. No pericardial effusion. No mediastinal adenopathy by size crit eria. Thoracic aorta and central pulmonary arteries are normal in size. Esophagus is normal in tracey kenneth. No hiatal hernia. Bones and chest wall: Moderate to marked thoracolumbar S-shaped scoliosis contributes to distortion of the chest and upper abdomen. No suspicious bony lesions. No vertebral body compression fractures. No axillary or supraclavicular adenopathy by size criteria. The thyroid gland is diminutive. Abdomen: Visualized upper abdominal solid organs and bowel loops appear normal in the absence of con trast. IMPRESSION: 1. There are chronic changes of patchy consolidation and fibrosis in the superior segment right lower lobe which is partially confluent with coarse apical pleural plaquing. Consider sarcoidosis of the d iagnosis. 2. There is bronchiectasis to a mild degree, right greater than left, with peribronchial thickening i n the right middle lobe. These findings support diagnosis of early fibrosis. 3. There is chronic mild pneumonitis in the lateral right lower lung which may be secondary to bronch itis, chronic atypical infection given stability, or aspiration. Reviewed by: Eliza Granger MD on 04/30/2020 4:16 PM PDT Approved by: Eliza Granger MD on 04/30/2020 4:16 PM PDT Station ID: [id number]
== END 2020-04-30 14:32 | disposition home or self-care (01) ==
LOC: DI 14:31
PROVIDERS: ATTEND Internal Medicine
DX: R91.8 Other nonspecific abnormal finding of lung field (principal); J18.9 Pneumonia, unspecified organism; J47.9 Bronchiectasis, uncomplicated; J84.10 Pulmonary fibrosis, unspecified

== ENCOUNTER 2020-11-17 07:00 | Outpatient (CLI) | payer MEDICARE, BC ==
[2020-11-17 15:54] LABS: BILIRUBIN,URINE NEGATIVE (NEGATIVE); GLUCOSE, URINE (UA) NEGATIVE (NEGATIVE); KETONES,URINE (UA) NEGATIVE (NEGATIVE); LEUKOCYTE ESTERASE, URINE NEGATIVE (NEGATIVE); NITRITE,URINE NEGATIVE (NEGATIVE); OCCULT BLOOD,URINE NEGATIVE (NEGATIVE); PH,URINE 5.5 PH (5.0-7.5); PROTEIN,URINE NEGATIVE (NEGATIVE); UROBILINOGEN,URINE 0.2 (NORMAL) E.U./dL (NORMAL)
[2020-11-17 15:57] LABS: CLARITY,URINE CLEAR (CLEAR)
[2020-11-17 16:00] LABS: BACTERIA,URINE Rare /HPF (None Seen); RBC,URINE 0-5 /HPF (0-5); SQUAMOUS EPITHELIAL CELL,UR RARE Squamous (<= Few); WBC,URINE 0-3 /HPF (0-5)
== END 2020-11-17 23:59 | disposition home or self-care (01) ==
LOC: LAB 07:00
PROVIDERS: ATTEND Obstetrics & Gynecology
DX: R30.0 Dysuria (principal)
CPT/HCPCS: 81001; 87086

== ENCOUNTER 2020-11-27 15:54 | Outpatient (CLI) | payer MEDICARE, BC ==
--- NOTE | 2020-11-27 17:03 | Ultrasound Report ---
PROCEDURE: Retroperitoneal INDICATIONS: LUQ REBOUND ABD TENDERNESS, DISORDER KIDNEY/URETER TECHNIQUE: Real-time scanning was performed of the retroperitoneal organs, with image documentation. COMPARISON: Reference is made to the CT abdomen dated November 10 2018. FINDINGS: Kidneys: Right kidney measures 7. cm long; left kidney measures 8.8 cm long. Right renal cortical thickness is 1 cm; left renal cortical thickness is 1 cm. Trace right caliectasis. No left hydronephrosis. Both kidneys demonstrate increased echogenicity. No appreciable nephrolithiasis. Urinary bladder: Prevoid volume measures 80 mL Postvoid volume measures 14 mL Bilateral ureteral jets are demonstrated. IMPRESSION: 1. Trace right caliectasis. 2. Bilateral echogenic kidneys, which is nonspecific but can be seen in the setting of medical renal disease. Reviewed by: Niko Hernadez MD on 11/27/2020 5:01 PM PDT Approved by: Niko Hernadez MD on 11/27/2020 5:01 PM PDT Station ID: [id number]
[2020-11-27 17:35] LABS: ALBUMIN 4.2 g/dL (3.2-5.5); ALBUMIN/GLOBULIN RATIO 1.3 (1.0-2.2); ALKALINE PHOSPHATASE 63 IU/L (42-121); ALT ALANINE AMINOTRANSFERASE 13 IU/L (10-60); AST ASPARTATE AMINOTRANSFERASE 23 IU/L (10-42); BILIRUBIN,TOTAL 0.6 mg/dL (0.2-1.0); BUN - BLOOD UREA NITROGEN 21 mg/dL (6-20); CALCIUM 9.3 mg/dL (8.5-10.3); CARBON DIOXIDE - CO2 27 mmol/L (21-32); CHLORIDE 100 mmol/L (101-111); CHOL/HDL RATIO 2.2 (<4.4); CHOLESTEROL 213 mg/dL; GFR - MDRD 54 (>89); GLUCOSE 96 mg/dL (70-100); HDL CHOLESTEROL 98 mg/dL; LDL CHOLESTEROL,CALCULATED 95 mg/dL; POTASSIUM 4.1 mmol/L (3.5-5.0); SODIUM 139 mmol/L (135-145); TOTAL PROTEIN 7.5 g/dL (6.7-8.2); TRIGLYCERIDES 98 mg/dL; VLDL CHOLESTEROL 20 mg/dL
[2020-11-27 18:02] LABS: THYROID STIMULATING HORMONE 1.42 uIU/mL (0.34-5.60)
[2020-11-27 18:04] LABS: FREE T4 (FREE THYROXINE) 0.93 ng/dL (0.58-1.64)
[2020-11-27 20:20] LABS: ESTIMATED AVERAGE GLUCOSE 108 mg/dL (70-100); HEMOGLOBIN A1c% 5.4 % (4.27-6.07)
== END 2020-11-27 15:55 | disposition home or self-care (01) ==
LOC: DI 15:54
PROVIDERS: ATTEND Obstetrics & Gynecology
DX: N28.89 Other specified disorders of kidney and ureter (principal); R93.422 Abnormal radiologic findings on diagnostic imaging of left kidney; R93.421 Abnormal radiologic findings on diagnostic imaging of right kidney; Z12.11 Encounter for screening for malignant neoplasm of colon; N28.9 Disorder of kidney and ureter, unspecified; R53.83 Other fatigue; Z13.220 Encounter for screening for lipoid disorders; Z13.21 Encounter for screening for nutritional disorder; Z13.1 Encounter for screening for diabetes mellitus; R10.9 Unspecified abdominal pain
CPT/HCPCS: 36415; 80053; 80061; 82306; 83036; 83721; 84439; 84443

== ENCOUNTER 2021-03-24 08:00 | Outpatient (CLI) | payer MEDICARE, BC ==
[2021-03-25 14:06] LABS: CLARITY,URINE CLEAR (CLEAR); LEUKOCYTE ESTERASE, URINE NEGATIVE (NEGATIVE); NITRITE,URINE NEGATIVE (NEGATIVE); PROTEIN,URINE NEGATIVE (NEGATIVE); UROBILINOGEN,URINE 0.2 (NORMAL) E.U./dL (NORMAL)
[2021-03-25 14:07] LABS: BILIRUBIN,URINE NEGATIVE (NEGATIVE); GLUCOSE, URINE (UA) NEGATIVE (NEGATIVE); KETONES,URINE (UA) NEGATIVE (NEGATIVE); OCCULT BLOOD,URINE NEGATIVE (NEGATIVE)
== END 2021-03-24 23:59 | disposition home or self-care (01) ==
LOC: LAB.R 08:00
PROVIDERS: ATTEND Internal Medicine
DX: R39.9 Unspecified symptoms and signs involving the genitourinary system (principal)
CPT/HCPCS: 81001; 81003; 87086

== ENCOUNTER 2021-05-05 14:20 | Outpatient (CLI) | payer MEDICARE, BC ==
--- NOTE | 2021-05-06 11:01 | Mammography Report ---
BILATERAL DIGITAL SCREENING MAMMOGRAM: 05/05/2021 CLINICAL: Routine screening. Comparison is made to exams dated: 08/31/2018 mammogram, 07/04/2017 mammogram, 06/24/2016 mammogram, mammogram, and 07/16/2012 mammogram - [facility]. The tissue of both breasts is heterogeneously dense. This may lower the sensitivity of mammography. No significant masses, calcifications, or other findings are seen in either breast. There has been no significant interval change. IMPRESSION: NEGATIVE There is no mammographic evidence of malignancy. A 1 year screening mammogram is recommended. This exam was interpreted at Station ID: [id number]. NOTE: For mammograms, a report in lay terms will be sent to the patient. Approximately 15% of breast malignancies will not be visualized mammographically. In the management of a palpable breast mass, a negative mammogram must not discourage biopsy of a clinically suspicious lesion. Electronically Signed By: Yossi Truong M.D. aty/penrad:05/05/2021 16:53:10 ACR BI-RADS Category 1: Negative 3341F PARENCHYMAL PATTERN: (D) - The breast(s) demonstrate(s) heterogeneously dense fibroglandular rocio rose. BI-RADS CATEGORY: (1) - 1 RECOMMENDATION: (ANNUAL) - Recommend routine annual screening mammography. [id number] 1 year screening LATERALITY: (B)
== END 2021-05-05 14:21 | disposition home or self-care (01) ==
LOC: DI.N 14:20
PROVIDERS: ATTEND Obstetrics & Gynecology
DX: Z12.31 Encounter for screening mammogram for malignant neoplasm of breast (principal)

== ENCOUNTER 2021-05-06 15:27 | Outpatient (CLI) | payer MEDICARE, BC ==
--- NOTE | 2021-05-06 16:44 | DEXA Report ---
PROCEDURE: Dexa Spine and/or Hip INDICATIONS: MENOPAUSE RELATED VASOMOTOR SYMPTOMS TECHNIQUE: Dual energy x-ray absorptiometry (DXA) was performed on a [employer] System. Regions measur ed are the AP Spine, femoral neck, and if needed forearm. COMPARISON: None. FINDINGS: Lumbar Spine: Bone Mineral Density 0.988 g/cm/cm,T score 1.6, mild to moderate osteopenia. Scoliotic curvature i s present within the lumbar spine. Left Hip: Bone Mineral Density 0.711 g/cm/cm,T score 2.4, severe osteopenia/borderline osteoporosis Left Femoral Neck: Bone Mineral Density 0.794 g/cm/cm, T score 1.8, osteopenia (T score greater or equal to -1.0: NORMAL) (T score from -1.1 to -2.4: OSTEOPENIA) (T score less than or equal to -2.5 to: OSTEOPOROSIS) Impression: Severe osteopenia with borderline osteoporotic in the hip. Patients with diagnosis of osteoporosis or osteopenia should have regular bone mineral density assess ment. For those eligible for Medicare, routine testing is allowed once every 2 years. Testing frequ ency can be increased for patients who have rapidly progressing disease or for those who are receivin g medical therapy to restore bone mass. Reviewed by: Kalani Birch MD on 05/06/2021 4:42 PM PDT Approved by: Kalani Birch MD on 05/06/2021 4:42 PM PDT Station ID: [id number]
== END 2021-05-06 15:28 | disposition home or self-care (01) ==
LOC: DI 15:27
PROVIDERS: ATTEND Obstetrics & Gynecology
DX: Z13.820 Encounter for screening for osteoporosis (principal); N95.8 Other specified menopausal and perimenopausal disorders; M85.89 Other specified disorders of bone density and structure, multiple sites

== ENCOUNTER 2021-07-28 13:28 | Emergency (ER) | payer MEDICARE, BC ==
[2021-07-28 13:41] VITALS: BP 149/91
[2021-07-28] MEDS ORDERED: LIDOCAINE PATCH 5% TOP STA (14:43)
--- NOTE | 2021-07-28 14:46 | ED Physician Documentation ---
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 Patient was in the garage when her gipson retriever's leash caught up around her ankles and caused her to fall backwards. She states she landed on her tailbone and then fell backwards, hitting her head. Denies loss of consciousness, denies use of blood thinners. Took Tylenol and Motrin prior to arrival, but still endorsing pain. Patient states that she is concerned because her tailbone is hurting her. Patient is also concerned that she might have a urinary tract infection because she has some suprapubic pain. She was going to call her primary care physician this week for a urine test. Review of Systems Ten Systems: 10 systems reviewed and negative Cardiac: denies: Chest pain / pressure, Pedal edema Respiratory: denies: Cough, Hemoptysis, Wheezing : reports: Dysuria. denies: Frequency, Unable to Void, Incontinent PD PAST MEDICAL HISTORY - Past Medical History Cardiovascular: Hypertension Endocrine/Autoimmune: HyPOthyroidism GI: GERD RATE ENGINEER: Other (Atropic vaginitis) Psych: Anxiety, Panic attacks Musculoskeletal: Chronic back pain - Past Surgical History Past Surgical History: Yes General: Appendectomy, Other (exploratory abd surgery in the remote past; details not presently available) /RATE ENGINEER: Hysterectomy (including tubes and ovaries for benign disease), Oophrectomy - Present Medications Home Medications: Ambulatory Orders Medication Instructions Recorded Confirmed Aspirin Chewable [St [place] 81 mg PO DAILY 10/16/12 11/11/18 Aspirin] Clonazepam 0.5 mg PO TID PRN 10/16/12 11/11/18 Labetalol HCl 100 mg PO BID 10/16/12 11/11/18 Levothyroxine [Synthroid] 37.5 mcg PO SUTUTHSA@0700 10/16/12 11/11/18 Nifedipine [Nifedical Xl] 60 mg PO DAILY 10/16/12 11/11/18 Estradiol [Vagifem] 20 mcg VG .Q3-4 DAYS 11/06/14 11/11/18 traMADol [Ultram] 50 - 100 mg PO DAILY 11/06/14 11/11/18 Acetaminophen 225 mg PO QID PRN 11/11/18 11/11/18 Levothyroxine [Synthroid] 50 mcg PO MOWEFR@0700 11/11/18 11/11/18 Loratadine 10 mg PO DAILY 11/11/18 11/11/18 Omeprazole 20 mg PO QDAC 11/11/18 11/11/18 clonazePAM [Clonazepam] 0.5 mg PO TID PRN 11/11/18 11/11/18 estradioL [Estradiol] 0.5 mg PO DAILY 11/11/18 11/11/18 Amox/Clav 875/125 [Augmentin] 1 each PO Q12H #60 tablet 11/17/18 Cholestyramine [Questran] 4 gm PO DAILY #30 packet 11/17/18 Diphenoxylate/Atropine [Lomotil] 1 each PO ONCE #60 tablet 11/17/18 Ferrous Sulfate 220 mg PO DAILY #150 elixir 11/17/18 Lactobacillus Rhamnosus GG 1 cap PO DAILY #30 capsule 11/17/18 [Culturelle] guaiFENesin [Mucinex] 600 mg PO BID #60 tablet 11/17/18 - Allergies Allergies/Adverse Reactions: Allergies Allergy/AdvReac Type Severity Reaction Status Date / Time iodine Allergy lightheaded Verified 07/28/21 13:41 Sulfa (Sulfonamide Allergy Nausea Verified 07/28/21 13:41 Antibiotics) trifluoperazine HCl * Allergy unknown Verified 07/28/21 13:41 [From Stelazine] - Social History Does the pt smoke?: No Smoking Status: Former smoker Does the pt drink ETOH?: No Does the pt have substance abuse?: No - POLST Patient has POLST: No POLST Status: Full Code PD ED PE NORMAL - General General: Alert and oriented X 3, No acute distress - HEENT HEENT: Atraumatic, PERRL, EOMI, Other (occipital TTP without crepitus) - Neck Neck: Supple, no meningeal sign, No bony TTP, No adenopathy - Cardiac Cardiac: RRR, No murmur, No gallop, Strong equal pulses - Respiratory Respiratory: No respiratory distress, Clear bilaterally - Abdomen Abdomen: Normal bowel sounds, Soft, Non tender, Non distended - Female Female : Deferred - Rectal Rectal: Deferred - Back Back: No CVA TTP, No spinal TTP, Other (L sided paraspinal tenderness to palpation) - Extremities Extremities: No deformity, No tenderness to palpate, No edema, No calf tenderness / cord - Neuro Neuro: Alert and oriented X 3, chief of party 2-12 intact, No motor deficit, No sensory deficit, Normal speech, Other (Ambulatory without assistance) - Psych Psych: Normal mood, Normal affect Results - Vitals Vitals: Vital Signs - 24 hr 07/28/21 13:33 Temperature 36.8 C Heart Rate 92 Respiratory 14 Rate Blood Pressure 149/91 H O2 Saturation 100 Oxygen O2 Source Room air - Labs Labs: Laboratory Tests 07/28/21 14:55 Urine Color YELLOW Urine Clarity HAZY Urine pH 5.5 Ur Specific [place] 1.020 Urine Protein NEGATIVE Urine Glucose (UA) NEGATIVE Urine Ketones NEGATIVE Urine Occult Blood NEGATIVE Urine Nitrite NEGATIVE Urine Bilirubin NEGATIVE Urine Urobilinogen 0.2 (NORMAL) Ur Leukocyte Esterase NEGATIVE Urine RBC None Seen Urine WBC 0-3 Ur Squamous Epith Cells MOD Squamous H Urine Bacteria Few Urine Culture Comments NOT INDICATED PD MEDICAL DECISION MAKING - ED course ED course: , , Patient presented for evaluation of ground-level fall that occurred several hours prior to arrival. Ambulatory without assistance. There is absolutely no midline vertebral tenderness to palpation, however patient does have paraspinal tenderness to palpation. Patient reports that her primary concern is her tailbone and her bladder. No acute fracture seen. Coccyx imaging recommended f/u in 7-10 days if still symptomatic. Patient and advised of this finding at bedside by myself. UA negative for acute findings. Patient was counseled on home care for her injuries. Counseled continued use of Tylenol and Motrin as sent for symptoms as well as bolstering pillows. PCP follow-up advised. Departure - Departure Disposition: 01 Home, Self Care Clinical Impression: Coccygeal pain, acute Fall Qualifiers: Encounter type: initial encounter Qualified Code(s): W19.XXXA - Unspecified fall, initial encounter Condition: Good Instructions: ED Back Care Tips
[2021-07-28 15:06] LABS: BILIRUBIN,URINE NEGATIVE (NEGATIVE); GLUCOSE, URINE (UA) NEGATIVE (NEGATIVE); KETONES,URINE (UA) NEGATIVE (NEGATIVE); LEUKOCYTE ESTERASE, URINE NEGATIVE (NEGATIVE); NITRITE,URINE NEGATIVE (NEGATIVE); OCCULT BLOOD,URINE NEGATIVE (NEGATIVE); PH,URINE 5.5 PH (5.0-7.5); PROTEIN,URINE NEGATIVE (NEGATIVE); UROBILINOGEN,URINE 0.2 (NORMAL) E.U./dL (NORMAL)
[2021-07-28 15:08] LABS: CLARITY,URINE HAZY (CLEAR)
[2021-07-28 15:13] LABS: BACTERIA,URINE Few /HPF (None Seen); RBC,URINE None Seen /HPF (0-5); SQUAMOUS EPITHELIAL CELL,UR MOD Squamous (<= Few); WBC,URINE 0-3 /HPF (0-5)
--- NOTE | 2021-07-28 15:32 | CT Report ---
PROCEDURE: HEAD WO INDICATIONS: GLF, HEAD PAIN TECHNIQUE: Noncontrast 4.5 mm thick angled axial sections acquired from the foramen magnum to the vertex. For r adiation dose reduction, the following was used: automated exposure control, adjustment of mA and/or kV according to patient size. COMPARISON: None. FINDINGS: Image quality: Excellent. CSF spaces: Basal cisterns are patent. No extra-axial fluid collections. Ventricles are normal in size and shape. Brain: No midline shift. No intracranial masses or hemorrhage. Us-white matter interface is norm al. Skull and face: Calvarium and visualized facial bones are intact, without suspicious lesions. Sinuses: Visualized sinuses and mastoids are clear. IMPRESSION: No acute intracranial finding. Reviewed by: Dewayne Cadena MD on 07/28/2021 3:31 PM PDT Approved by: Dewayne Cadena MD on 07/28/2021 3:31 PM PDT Station ID: [id number]
--- NOTE | 2021-07-28 15:37 | CT Report ---
PROCEDURE: CERVICAL SPINE WO INDICATIONS: Ground-level fall, pain TECHNIQUE: Noncontrast 3 mm thick sections acquired from the skull base to the T4 level. Sagittal and coronal r eformats were then constructed. For radiation dose reduction, the following was used: automated exp osure control, adjustment of mA and/or kV according to patient size. COMPARISON: Chest CT 05/01/2019 FINDINGS: Image quality: Excellent. Bones: No fractures or dislocations. Visualized superior ribs are intact. Soft tissues: Prevertebral soft tissues are normal in thickness. No paravertebral hematomas. No ap ical pneumothoraces. IMPRESSION: No CT evidence of acute traumatic cervical spine injury. Reviewed by: Dewayne Cadena MD on 07/28/2021 3:36 PM PDT Approved by: Dewayne Cadena MD on 07/28/2021 3:36 PM PDT Station ID: [id number]
--- NOTE | 2021-07-28 15:49 | XRAY Report ---
PROCEDURE: Sacrum/Coccyx INDICATIONS: GLF, TAILBONE PAIN TECHNIQUE: 3 views of the sacrum and coccyx acquired. COMPARISON: X-ray lumbar spine 01/29/2018 FINDINGS: Bones: No fractures or dislocations. There is curvature to the coccyx which is unchanged compared t 2018. No suspicious bony lesions. Soft tissues: Visualized bowel gas pattern is normal. No suspicious soft tissue densities. IMPRESSION: No visualized acute fracture or dislocation. However, occult injury cannot be excluded. Recommend ericka rt interval imaging follow-up in 7-10 days as clinically indicated for additional evaluation. Reviewed by: Kalani Birch MD on 07/28/2021 3:48 PM PDT Approved by: Kalani Birch MD on 07/28/2021 3:48 PM PDT Station ID: [id number]
== END 2021-07-28 16:19 | disposition home or self-care (01) ==
LOC: ED 13:28
DX: M53.3 Sacrococcygeal disorders, not elsewhere classified (principal); I10 Essential (primary) hypertension; Z87.891 Personal history of nicotine dependence; W19.XXXA Unspecified fall, initial encounter
CPT/HCPCS: 70450; 72125; 72220; 81001; 99282; 99284; A9270; 87086

== ENCOUNTER 2021-11-16 10:54 | Outpatient (CLI) | payer MEDICARE, BC ==
--- NOTE | 2021-11-16 15:31 | MRI Report ---
PROCEDURE: MRI lumbar spine without contrast INDICATIONS: LOW BACK PAIN TECHNIQUE: Noncontrast sagittal T1 spin echo and T2 fast echo, sagittal STIR, axial T1 and T2 fast spin echo thr ough the lumbar spine. In cases with scoliosis, additional coronal T2 fast spin echo may be performe d. COMPARISON: 06/02/2018 FINDINGS: Image quality: Excellent. Alignment and Curvature: Convex left lumbar scoliosis, similar prior exam Bone Marrow: Marrow is of normal overall signal. No acute vertebral body compression fractures. Spinal Cord: Conus medullaris terminates at the L1 level. Visualized cord demonstrates normal signa l and size. Paraspinous Soft Tissues: No paravertebral masses. T12-L1: Normal in appearance. L1-L2: Normal in appearance. L2-L3: Disc spaces preserved. Circumferential disc bulge and hypertrophic facet joints results in moderate central stenosis. Moderate right and no left foraminal stenosis. L3-L4: Disc space narrowing. Circumferential disc bulge and hypertrophic facet joints combines with ligamentum flavum laxity results in moderate central stenosis. No left and moderate right foraminal stenosis L4-L5: Disc space narrowing and circumferential disc bulge with hypertrophic facet joints results i n moderate central stenosis. Severe left and mild right foraminal stenosis L5-S1: Circumferential disc bulge and hypertrophic facet joints present. No central stenosis. No ri ght and moderate left foraminal stenosis present. IMPRESSION: Degenerative disc disease, arthropathy and lumbar levoscoliosis results in varying degrees of central and foraminal stenosis including moderate central stenosis L3-4 and severe left foraminal stenosis L 4-5 Reviewed by: Barrera Burgos MD on 11/16/2021 2:29 PM LUCIANO Approved by: Barrera Burgos MD on 11/16/2021 2:29 PM AKЕКАТЕРИНА Station ID: [id number]
== END 2021-11-16 10:55 | disposition home or self-care (01) ==
LOC: DI 10:54
PROVIDERS: ATTEND Internal Medicine
DX: M51.36 Other intervertebral disc degeneration, lumbar region (principal); M48.061 Spinal stenosis, lumbar region without neurogenic claudication; M51.37 Other intervertebral disc degeneration, lumbosacral region; M48.07 Spinal stenosis, lumbosacral region; M47.816 Spondylosis without myelopathy or radiculopathy, lumbar region; M47.817 Spondylosis without myelopathy or radiculopathy, lumbosacral region

== ENCOUNTER 2022-06-16 17:15 | Outpatient (CLI) | payer MEDICARE, OTHER ==
--- NOTE | 2022-06-17 14:50 | XRAY Report ---
PROCEDURE: Chest 2 View X-Ray INDICATIONS: BACK PX, RIB PX, SCIATICA TECHNIQUE: 2 views of the chest were acquired. COMPARISON: CT chest 04/30/2020, chest x-ray 02/07/2019 FINDINGS: Surgical changes and devices: None. Lungs and pleura: No pleural effusions or pneumothorax. There is appearance of patchy opacity overly ing the right upper lobe unchanged and suspected to be customer operations representative of scarring. Mediastinum: Mediastinal contours appear normal. Heart size is normal. Bones and chest wall: No suspicious bony lesions. Overlying soft tissues appear unremarkable. IMPRESSION: No acute cardiopulmonary process. Reviewed by: Kalani Birch MD on 06/17/2022 2:49 PM PDT Approved by: Kalani Birch MD on 06/17/2022 2:49 PM PDT Station ID: [id number]
== END 2022-06-16 17:16 | disposition home or self-care (01) ==
LOC: DI 17:15
PROVIDERS: ATTEND Internal Medicine
DX: R07.81 Pleurodynia (principal); M54.9 Dorsalgia, unspecified; M54.30 Sciatica, unspecified side

== ENCOUNTER 2022-06-28 16:24 | Outpatient (CLI) | payer MEDICARE, OTHER ==
--- NOTE | 2022-06-28 17:32 | XRAY Report ---
PROCEDURE: Lumbar Spine Complete INDICATIONS: BACK PAIN TECHNIQUE: 4 views of the lumbar spine were acquired. COMPARISON: Lumbar spine MRI dated 11/16/2021 FINDINGS: Bones: 5 [id number] vertebrae are present. Moderate to severe levocurvature centered at L1-L2. No vertebral body compression fractures. No suspicious bony lesions. Soft tissues: Overlying bowel gas pattern is normal. No suspicious soft tissue calcifications. IMPRESSION: Moderate to severe levocurvature centered at L1-L2. No evidence of acute bony abnormalit y. Reviewed by: Vishal Ross MD on 06/28/2022 5:31 PM PDT Approved by: Vishal Ross MD on 06/28/2022 5:31 PM PDT Station ID: [id number]
== END 2022-06-28 16:25 | disposition home or self-care (01) ==
LOC: DI 16:24
PROVIDERS: ATTEND Anesthesiology
DX: M41.9 Scoliosis, unspecified (principal)

== ENCOUNTER 2022-08-25 20:07 | Outpatient (CLI) | payer MEDICARE, OTHER ==
--- NOTE | 2022-08-26 12:13 | XRAY Report ---
PROCEDURE: Hand 2 View RT INDICATIONS: CONTUSION OF RIGHT HAND TECHNIQUE: 2 views of the hand(s) acquired. COMPARISON: None. FINDINGS: Bones: No fractures or dislocations. No suspicious bony lesions. Prominent arthritic changes are present at the first CMC joint as well as moderate scattered IP degenerative narrowing. Soft tissues: No suspicious soft tissue calcifications or masses. IMPRESSION: Arthritic changes most severe first CMC joint. No visualized acute fracture or dislocation. However, occult injury cannot be excluded. Recommend short interval imaging follow-up in 7-10 days as clinical ly indicated for additional evaluation. Reviewed by: Kalani Birch MD on 08/26/2022 12:11 PM PDT Approved by: Kalani Birch MD on 08/26/2022 12:11 PM PDT Station ID: [id number]
== END 2022-08-25 20:08 | disposition home or self-care (01) ==
LOC: DI 20:07
PROVIDERS: ATTEND Nurse Practitioner
DX: S60.221A Contusion of right hand, initial encounter (principal); M18.11 Unilateral primary osteoarthritis of first carpometacarpal joint, right hand; M19.041 Primary osteoarthritis, right hand

== ENCOUNTER 2022-09-06 08:00 | Outpatient (CLI) | payer MEDICARE, OTHER ==
--- NOTE | 2022-09-06 16:17 | XRAY Report ---
PROCEDURE: Wrist 3 View RT INDICATIONS: RIGHT WRIST PAIN TECHNIQUE: 3 views of the wrist were acquired. COMPARISON: None. FINDINGS: Bones: No fractures or dislocations. No suspicious bony lesions. Severe degenerative changes presen t at the first CMC joint and moderate changes present at the triscaphe E joint. Soft tissues: No suspicious soft tissue calcifications or masses. IMPRESSION: 1. Degenerative change. 2. No acute bony abnormality. If there is anatomic snuff box tenderness, consider wrist immobilizatio n and repeat radiographs in 10-14 days or cross-sectional imaging now. If pain persists with conserva tive management, consider repeat radiographs in 10-14 days or cross-sectional imaging. Reviewed by: Dianne De La Rosa MD on 09/06/2022 4:16 PM PDT Approved by: Dianne De La Rosa MD on 09/06/2022 4:16 PM PDT Station ID: [id number]
== END 2022-09-06 23:59 | disposition home or self-care (01) ==
LOC: DI.WOS 08:00
PROVIDERS: ATTEND Physician Assistant Surgical
DX: M19.031 Primary osteoarthritis, right wrist (principal)

== ENCOUNTER 2023-07-22 23:38 | Emergency (ER) | payer MEDICARE, OTHER ==
[2023-07-22 23:47] VITALS: BP 175/74; O2SAT 99
--- NOTE | 2023-07-23 01:01 | ED Physician Documentation ---
PD HPI UPPER EXT INJURY - Stated complaint Stated Complaint: LT HAND PX - Chief complaint Chief Complaint: Trauma Ext - History obtained from History obtained from: Patient - Additonal information Additional information: Patient is an 78-year-old female presenting for evaluation of left hand injury. Patient was pulling something out of a dresser when it fell on her hand. Does not take a blood thinner. Has chronic pains in bilateral hands at baseline. 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: Hysterectomy, Oophrectomy - Present Medications Home Medications: Ambulatory Orders Medication Instructions Recorded Confirmed Aspirin Chewable [[facility] [place] 81 mg PO DAILY 10/16/12 11/11/18 Aspirin] Clonazepam 0.5 mg PO TID PRN 10/16/12 11/11/18 Labetalol HCl 100 mg PO BID 10/16/12 11/11/18 Levothyroxine [Synthroid] 37.5 mcg PO SUTUTHSA@0700 10/16/12 11/11/18 Nifedipine [Nifedical Xl] 60 mg PO DAILY 10/16/12 11/11/18 Estradiol [Vagifem] 20 mcg VG .Q3-4 DAYS 11/06/14 11/11/18 traMADol [Ultram] 50 - 100 mg PO DAILY 11/06/14 11/11/18 Acetaminophen 225 mg PO QID PRN 11/11/18 11/11/18 Levothyroxine [Synthroid] 50 mcg PO MOWEFR@0700 11/11/18 11/11/18 Loratadine 10 mg PO DAILY 11/11/18 11/11/18 Omeprazole 20 mg PO QDAC 11/11/18 11/11/18 clonazePAM [Clonazepam] 0.5 mg PO TID PRN 11/11/18 11/11/18 estradioL [Estradiol] 0.5 mg PO DAILY 11/11/18 11/11/18 Amox/Clav 875/125 [Augmentin] 1 each PO Q12H #60 tablet 11/17/18 Cholestyramine [Questran] 4 gm PO DAILY #30 packet 11/17/18 Diphenoxylate/Atropine [Lomotil] 1 each PO ONCE #60 tablet 11/17/18 Ferrous Sulfate 220 mg PO DAILY #150 elixir 11/17/18 Lactobacillus Rhamnosus GG 1 cap PO DAILY #30 capsule 11/17/18 [Culturelle] guaiFENesin [Mucinex] 600 mg PO BID #60 tablet 11/17/18 - Allergies Allergies/Adverse Reactions: Allergies Allergy/AdvReac Type Severity Reaction Status Date / Time iodine Allergy lightheaded Verified 07/22/23 23:41 Sulfa (Sulfonamide Allergy Nausea Verified 07/22/23 23:41 Antibiotics) trifluoperazine HCl * Allergy unknown Verified 07/22/23 23:41 [From Stelazine] - Social History Does the pt smoke?: No Smoking Status: Never smoker Does the pt drink ETOH?: No Does the pt have substance abuse?: No - Immunizations Immunizations are current?: Yes - POLST Patient has POLST: No POLST Status: Full Code PD ED PE NORMAL - General General: Alert and oriented X 3, No acute distress - HEENT HEENT: Atraumatic - Derm Derm: Warm and dry - Extremities Extremities: Other (Bruising and swelling to dorsum of left hand over third metacarpal with tenderness, normal range of motion of digits, bruising noted to distal left third phalanx) Results - Vitals Vitals: Vital Signs - 24 hr 07/22/23 23:41 Temperature 36.5 C Heart Rate 102 H Respiratory 16 Rate Blood Pressure 175/74 H O2 Saturation 99 Oxygen O2 Source Room air PD Medical Decision Making - ED course ED course: Patient with injury to left hand. Neurovascularly intact. No nailbed injury. X-ray was obtained which I reviewed and I see no fracture or dislocation. Patient does have a hematoma to the dorsum of the hand and bruising. Counseled on continued supportive care. Declines pain medications here. Advised on conc erning symptoms to return for. Departure - Departure Disposition: 01 Home, Self Care Clinical Impression: Injury of left hand, Hematoma of left hand Condition: Stable Instructions: ED Hematoma Comments: Your x-ray does not show a broken bone. However you do have bruising and a hematoma present. This may continue to cause pain for the next few days I would use anti-inflammatories, ice and elevation. Return to the ER if you develop any worsening symptoms such as increased pain, swelling, redness or abnormal discharge. Forms: PCP List Discharge Date/Time: 07/23/23 01:22
--- NOTE | 2023-07-23 01:09 | XRAY Report ---
PROCEDURE: Hand 3+V LT INDICATIONS: injury from dresser/3rd metacarpal TECHNIQUE: 3 views of the hand(s) acquired. COMPARISON: Left hand radiograph 09/14/2021. FINDINGS: Bones: No fractures or dislocations. No suspicious bony lesions. Soft tissues: No suspicious soft tissue calcifications or masses. IMPRESSION: No acute bony abnormality. Reviewed by: Kaitlin Bowman MD, PhD on 07/23/2023 1:08 AM PDT Approved by: Kaitlin Bowman MD, PhD on 07/23/2023 1:08 AM PDT Station ID: [id number]
== END 2023-07-23 01:22 | disposition home or self-care (01) ==
LOC: ED 23:38
DX: S60.222A Contusion of left hand, initial encounter (principal); W20.8XXA Other cause of strike by thrown, projected or falling object, initial encounter; Y93.89 Activity, other specified; Y92.009 Unspecified place in unspecified non-institutional (private) residence as the place of occurrence of the external cause
CPT/HCPCS: 99283